=== PATIENT | male | born 1955 | race African-American/Black ===

== ENCOUNTER 2016-10-07 14:10 | Inpatient (IN) ==
[2016-10-07] MEDS ORDERED: SODIUM CHLORIDE 0.9% 1,000 ML IV STA ×2 (14:46→15:30)
[2016-10-07 14:53] LABS: Basophils % 0.2 % (0.0-0.8); Eosinophils % 0.1 % (0.00-10.9); Hematocrit 27.6 VOL% (42.0-52.0); Hemoglobin 8.3 GM/DL (14.0-18.0); Immature Granulocytes % 1.4 %; Immature Granulocytes Absolute 0.28 #; Lymphocytes # 0.8 10*3/uL (1.4-4.0); Lymphocytes % 3.9 % (21.2-54.2); Mean Corpuscular HGB Conc 30.1 GM/DL (32-36); Mean Corpuscular Hemoglobin 24 PG (27-34); Mean Corpuscular Volume 80.5 FL (87-102); Mean Platelet Volume 10.5 FL (9.6-12.0); Monocytes # 0.9 10*3/uL (0.11-0.8); Monocytes % 4.8 % (1.7-12.7); NRBC # 0.03 10*3/uL; Neutrophils # 17.3 10*3/uL (1.4-7.4); Neutrophils % 89.6 % (38.7-73.9); Platelet Count 298 T/CUMM (130-400); Red Blood Count 3.43 MC/CUMM (3.8-5.5); Red Cell Distribution Width 17.4 % (9.3-17.3); White Blood Count 19.3 T/CUMM (4-12)
--- NOTE | 2016-10-07 15:00 | EKG Report ---
Stationary ECG Study [facility] ER Test Date: 10/07/2016 2:09:32 PM Pat Name: KAREN ORDOÑEZ Department: Room: Gender: M Network Operations Specialist: KATHERIN : 1955 Requested by: Rolan Chen Order Number: [id number] Reading MD: KIRSTIN RICE Intervals [place] Rate: 103 P: 53 VT: 126 QRS: -28 QRSD: 83 T: 6 QT: 370 QTc: 430 Interpretive Statements SINUS TACHYCARDIA BORDERLINE LEFT AXIS DEVIATION ABNORMAL RHYTHM ECG INTERPRETATION BASED ON A DEFAULT AGE OF 40 YEARS Electronically Signed On 10-08-16 06:39:31 CDT by KIRSTIN RICE [email or web address]
[2016-10-07] MEDS ORDERED: LORazepam 2 MG/1 ML VIAL IV STA ×2 (15:05→15:25)
[2016-10-07 15:06] LABS: Ammonia 25 UMOL/L (11-32)
[2016-10-07] MEDS ORDERED: LORazepam 2 MG/1 ML VIAL ONE (15:07)
[2016-10-07 15:10] LABS: Lactic Acid 13.7 MMOL/L (0.4-2.0)
[2016-10-07 15:14] LABS: Alanine Aminotransferase 22 U/L (16-61); Albumin 2.9 G/DL (3.4-5.0); Alkaline Phosphatase 125 U/L (45-117); Aspartate Amino Transferase 9 U/L (0-37); Blood Urea Nitrogen 44 MG/DL (7-18); Calcium 7.2 MG/DL (8.5-10.1); Osmolality,Calculated 319.6 MOS/KG (273-304); Potassium 4.7 MMOL/L (3.5-5.1); Total Protein 6.1 G/DL (6.4-8.3); Troponin I Only 0.026 NG/ML (0.00-0.045)
[2016-10-07 15:19] LABS: Glucose 1415 MG/DL (74-106); Sodium 117 MMOL/L (136-145)
[2016-10-07 15:27] LABS: Lymphocytes 2 % (20-55); Nucleated Red Blood Cells 1 (0-5); Segmented Neutrophils 96 % (50-85); Total Cells Counted 100
[2016-10-07 15:28] LABS: Platelet Estimate Normal
[2016-10-07 15:29] LABS: Hypochromasia 1+; Microcytosis 1+; Polychromasia Slight
[2016-10-07 15:40] LABS: Apearance,Urine CLEAR (Clear); Bilirubin,Urine Negative (Negative); Blood, Urine Small mg/dL (Negative); Glucose,Urine (UA) >=500 mg/dL (Negative); Ketones,Urine Negative (Negative); Mucus,Urine Occasional /LPF (Occasional); Nitrite,Urine Negative (Negative); Protein,Urine 30 MG/DL; Squamous Epithelial Cell,Urine Occasional /HPF (0-10); Urine Color Straw (Yellow); Urine Specific Gravity 1.015 (1.001-1.035); Urine Urobilinogen < 2.0 EU/DL (0.2-1.0); WBC,Urine <1 /HPF (0-6)
[2016-10-07 15:52] LABS: Barbiturates Screen,Urine Negative (Negative); Benzodiazepines Screen,Urine Negative (Negative); Cannabinoid Screen,Urine Negative (Negative); Opiate Screen,Urine Negative (Negative); Phencyclidine Screen,Urine Negative (Negative)
[2016-10-07 15:56] LABS: ABG Base Excess -13.6 MMOL/L (-2.5-2.5); ABG HCO3 11.2 MMOL/L (20-26); ABG Oxygen Saturation 97.1 % (95-100); ABG PCO2 23.1 MM HG (35-48); ABG PH 7.304 (7.35-7.45); ABG TCO2 11.9 MMOL/L (23-27); Allen Test Positive; Pt O2 Delivery Device Room Air
--- NOTE | 2016-10-07 16:05 | Emergency Department Note ---
I, Forrest Roth, am scribing for, and in the presence of, Rolan Chen Jr., MD 14:50. IGustavo Marvin Jr., MD, personally performed the services described in this documentation, ascribed by Forrest Roth in my presence, and it is both accurate and complete . Arrival - Arrival Chief Complaint: Altered Mental Status Stated Complaint: C/O ALTERED MENTAL STATUS SINCE 1145 THIS MORNING ED Nursing Triage Note: C/O ALTERED MENTAL STATUS WITH ONSET 1145 THIS MORNING. LAST KNOWN WELL Mode of Arrival: Stretcher Limitations: Altered Mental Status Source: Patient, Family (sON) - History of Present Illness HPI Narrative: Pt is a 61 y/o male who presents to the ED for further evaluation of altered mental status with an onset 1145 this morning. Patient is accompanied by his son who was not with the patient at onset of symptoms. History is limited due to patients altered mental status. Son stated that the patients daughter was with him on onset and that she stated that the patient passed out and she called EMS. After patient came to, he was confused. Son confirmed that pt is normally coherent and talkative. Nurse noted that pt's blood sugar was 600 at triage. Son is unsure of patient's last known well time or if he takes any medication for his seizures. Pt has a PMHx of HTN, seizures, [place], CVA and IDDM. Son said that pt stopped smoking in 2012. No other problems/complaints reported in ED. I agree this is a very confusing history. Son lives with him but he was not with him when this episode occurred. His sister told him that his dad had passed out and had high blood sugar. He still acting confused. Son says that this is not his baseline. Onset (ago): hour(s) Consistency: constant Severity: severe Allergies/Adverse Reactions: Allergies Allergy/AdvReac Type Severity Reaction Status Date / Time No Known Allergies Allergy Unverified 10/07/16 14:16 Home Medications: Home Medications Medication Instructions Recorded Confirmed Type Atorvastatin [Lipitor] 10 mg PO DAILY 10/07/16 10/07/16 History Levothyroxine Tab [Synthroid Tab] 100 mcg PO DAILY 10/07/16 10/07/16 History Potassium Chloride 8 meq PO DAILY 10/07/16 10/07/16 History Sitagliptin Phos/Metformin HCl 1 each PO BID W/MEALS 10/07/16 10/07/16 History [Janumet Xr 50-1,000 mg Tablet] metOLazone [Metolazone] 0.5 mg PO DAILY 10/07/16 10/07/16 History Review of System - Review of System ROS unobtainable: due to mental status 12 point system: reviewed and no additional remarkable complaints except as stated Medical,Surgical,& Family Hx - Medical History Cardio: History of: Hypertension, [place] Neurology: History of: Cerebrovascular Accident Endocrine: History of: Diabetes Mellitus (IDDM) - Social History Smoking Status: Never smoker Frequency of Alcohol Use: None Type of Drug Use: None Exam Physical Examination: General: Well-developed well-nourished, patient appears anxious and slightly agitated. He is already pulled his IV out wants Head: Normocephalic, atraumatic. Eyes: PERRLA, EOMI. Nose: No obvious acute deformities or discharge. Mouth: No obvious acute injury. Neck: Full range of motion without obvious pain. No midline tender to palpation. Lymphatic: no significant lymphadenopathy noted. Lungs: Clear to auscultation bilaterally, normal and equal air movement bilaterally, no obvious rales or wheezing. Heart: Tachycardic Abdomen: Soft nontender, nondistended, normal active bowel sounds. Skin: No obivous acute lesions noted Musculoskeletal: No gross deformities. Neurological: Moves all limbs and follows directions. Seems confused. Does not answer all questions appropriately. Psychiatric: Odd affect : Deferred Vital Signs: Vital Signs Temperature 98.4 F 10/07/16 14:11 Pulse Rate 104 H 10/07/16 14:11 Respiratory Rate 20 10/07/16 14:11 Blood Pressure 120/59 10/07/16 14:11 O2 Sat by Pulse Oximetry 100 10/07/16 14:11 Course Course Narrative: Differential diagnosis: Syncope, hyperglycemia, hyperosmotic nonketotic syndrome , DKA, stroke, secondary to drugs, seizures I reviewed past medical charts that are available in this computer database and find nothing to help with this problem today. This appears to be a new complaint. Son said he thinks the father may have had a seizure in the past but he does not think he is taking any medication. - Reevaluation(s) Reevaluation #1: Nurse told me patient is very restless. had a twithcing activitie in his right arm but is able to talk to her through this. He is also trying to get off the bed. We will give him some Ativan and see if this helps. He still altered. Time: 15:06 Reevaluation #2: Patient still altered. Labs are coming back which show multiple severe problems that will necessitate ICU admission. Patient is very critical at this time. I discussed this with multiple family members to. Patient still remains too agitated to get a CT of his head. He will not sit still. I feel he is too unstable to further sedate him. He still moves all limbs and will talk. Time: 15:47 Results - Labs CBC & BMP: 10/07/16 14:37 10/07/16 14:37 Lab Results: I have reviewed the patients labs Labs: Laboratory Tests 10/07/16 14:37 WBC 19.3 H RBC 3.43 L Hgb 8.3 L Hct 27.6 L MCV 80.5 L MCH 24 L MCHC 30.1 L RDW 17.4 H Plt Count 298 MPV 10.5 Neut % (Auto) 89.6 H Lymph % (Auto) 3.9 L Garrett % (Auto) 4.8 Eos % (Auto) 0.1 Baso % (Auto) 0.2 Neut # (Auto) 17.3 H Lymph # (Auto) 0.8 L Garrett # (Auto) 0.9 H Eos # (Auto) 0.0 Baso # (Auto) 0.0 Total Counted Pending Immature Gran % 1.4 Nucleated RBC % 0.2 Immature Gran # 0.28 Nucleated RBCs # 0.03 Laboratory Tests 10/07/16 14:37 Ammonia 25 Laboratory Tests 10/07/16 14:37 WBC 19.3 H RBC 3.43 L Hgb 8.3 L Hct 27.6 L MCV 80.5 L MCH 24 L MCHC 30.1 L RDW 17.4 H Plt Count 298 MPV 10.5 Neut % (Auto) 89.6 H Lymph % (Auto) 3.9 L Garrett % (Auto) 4.8 Eos % (Auto) 0.1 Baso % (Auto) 0.2 Neut # (Auto) 17.3 H Lymph # (Auto) 0.8 L Garrett # (Auto) 0.9 H Eos # (Auto) 0.0 Baso # (Auto) 0.0 Total Counted 100 Immature Gran % 1.4 Nucleated RBC % 0.2 Immature Gran # 0.28 Segmented Neutrophils 96 H Lymphocytes 2 L Monocytes 2 Nucleated RBCs 1 Nucleated RBCs # 0.03 Platelet Estimate Normal Polychromasia Slight Hypochromasia 1+ Microcytosis 1+ Laboratory Tests 10/07/16 14:37 Sodium 117 L* Potassium 4.7 Chloride 77 L Carbon Dioxide 11 L Anion Gap 33.7 H BUN 44 H Creatinine 6.00 H GFR Calculation 15 BUN/Creatinine Ratio 7.00 Glucose 1415 H* Calculated Osmolality 319.6 H Lactic Acid 13.7 H Calcium 7.2 L Total Bilirubin 0.60 AST 9 ALT 22 Alkaline Phosphatase 125 H Ammonia 25 Troponin I 0.026 Total Protein 6.1 L Albumin 2.9 L Globulin 3.2 Albumin/Globulin Ratio 0.9 L Serum Alcohol < 15 L Laboratory Tests 10/07/16 14:37 Urine Color Straw Urine Appearance Clear Urine pH 5.0 Ur Specific [place] 1.015 Urine Protein 30 Urine Glucose (UA) >=500 Urine Ketones Negative Urine Blood Small Urine Nitrate Negative Urine Bilirubin Negative Urine Urobilinogen < 2.0 H Urine Leukocytes Negative Urine WBC <1 Ur Squamous Epith Cells Occasional Urine Mucus Occasional Ur Culture Indicated? Not indicated - EKG EKG results: interpreted by ERMD (Heart rate 103, normal sinus rhythm, narrow complex QRS complexes without obvious acute ST changes. Interpretation nonspecific EKG, sinus tachycardia) Critical Care Time Critical Care Time: Yes (Critical condition, hyperosmolar, DKA) Total Critical Care Time: 40 Disposition Clinical Impression: Altered mental status, Diabetic ketoacidosis, Diabetic hyperosmolar syndrome, Acute renal failure, Lactic acidosis Case discussed with: patient, patient's family Disposition: Still a Patient Time of Disposition: 15:49
[2016-10-07] MEDS ORDERED: SODIUM PHOSPHATE INJ 28.3 MMOL in SODIUM CHLORIDE 0.9% 250 ML IV PRN (16:27)
[2016-10-07] MEDS ORDERED: MAGNESIUM SULF RIDER 2 GM in PREMIX 1 EACH IV PRN (16:27)
[2016-10-07] MEDS ORDERED: MAGNESIUM SULF RIDER 4 GM in PREMIX 1 EACH IV PRN (16:27)
[2016-10-07] MEDS ORDERED: ZALEPLON 5 MG CAPSULE PO PRN (16:27)
[2016-10-07] MEDS ORDERED: ACETAMINOPHEN 325 MG TABLET PO PRN (16:27)
[2016-10-07] MEDS ORDERED: SODIUM CHLORIDE 0.9% 1,000 ML IV ONE (16:27)
[2016-10-07] MEDS ORDERED: INSULIN REGULAR 100 UNIT/ML IV ONE (16:27)
[2016-10-07] MEDS ORDERED: SODIUM BICARB INJ 100 MEQ in STERILE WATER INJ 400 ML IV PRN (16:27)
[2016-10-07] MEDS ORDERED: DEXTROSE 50% 25 GM/50 ML VIAL IV PRN ×2 (16:27)
[2016-10-07] MEDS ORDERED: ONDANSETRON 4 MG/2 ML VIAL IV PRN (16:27)
[2016-10-07] MEDS ORDERED: MORPHINE 2 MG/1 ML SYRINGE IV PRN (16:27)
--- NOTE | 2016-10-07 16:49 | XRay Report ---
History: History of hypertension and diabetes Date: 10/07/2016 Study: Chest x-ray AP portable Comparison exam: September 30, 2014 There is cardiomegaly. There is no mediastinal mass. The pulmonary vasculature is not engorged. Lungs are generally clear when accounting for shallow inspiration. No gross pleural effusion. The osseous structures are unchanged. Impression: Cardiomegaly without overt CHF. Shallow breath shallow breath PROCEDURE INTERPRETED AT [facility] DEPARTMENT OF RADIOLOGY Final Report Signed by: Dr. Jewels Pickett
--- NOTE | 2016-10-07 16:50 | Hospitalist History & Physical ---
Assessment and Plan - Time spent with patient Time spent with patient: Greater than 30 minutes (1) Leukocytosis Status: Acute Assessment and plan: WBC 19.3. Source most likely a pulmonary infectious process. Cover empirically with Zyvox 600 mg IV Q12H. Current Visit: Yes (2) Acute renal failure Status: Acute Assessment and plan: Patient is known diabetic. Unsure of patient's baseline. Today, BUN 44 creatinine 6.0. Gentle hydration via IV fluids Current Visit: Yes (3) Altered mental status Status: Acute Assessment and plan: Unsure the source of his altered mental status. We will treat for DKA and suspected pseudo-hyponatremia and monitor closely. Current Visit: Yes (4) Diabetic ketoacidosis Status: Acute Assessment and plan: Glucose 1415 on admission. ABGs revealed metabolic acidosis with a pH of 7.3 PCO2 23 HCO3 11.2. Admit to ICU. Initiate DKA protocol Current Visit: Yes History of Present Illness Chief complaint: AMS/hyperosmolar History of present illness: Mr. Fraire is a 61 year old -[place] male with a history significant for hypertension, seizures, [place], CVA, renal failure, diabetes mellitus who presents to the ED for evaluation of altered mental status since this morning. On exam, the patient is agitated and not very cooperative. Patient's son and daughter are at bedside and were able to answer a few questions regarding the nature of the patient's condition. Daughter states that she was with the patient at the time of onset and that she called 911 after witnessing the patient passed out. Son states that this is not the patient's usual state. He is apparently coherent and communicative at his normal. On arrival to the ER, patient was still confused and agitated. Lab reveals white count of 19.3 H&H 8.3 and 27.6 sodium 117 potassium 4.7 chloride 77 bicarb 11 BUN 44 creatinine 6.0 glucose 1415. ABGs reveal pH of 7.3 PCO2 23 HCO3 11.2. Patient did receive 2 doses of lorazepam and seemed to calm down slightly. Chest x-ray in the ER revealed cardiomegaly without overt CHF. Patient will be admitted to hospital medicine service for evaluation and further management of diabetic ketoacidosis. I suspect his hyponatremia is in fact pseudohyponatremia secondary to hyperglycemia. This should correct with management of DKA. We will admit patient to the ICU overnight. Home Medications Medication Instructions Recorded Confirmed Type Atorvastatin [Lipitor] 10 mg PO DAILY 10/07/16 10/07/16 History Levothyroxine Tab [Synthroid Tab] 100 mcg PO DAILY 10/07/16 10/07/16 History Potassium Chloride 8 meq PO DAILY 10/07/16 10/07/16 History Sitagliptin Phos/Metformin HCl 1 each PO BID W/MEALS 10/07/16 10/07/16 History [Janumet Xr 50-1,000 mg Tablet] metOLazone [Metolazone] 0.5 mg PO DAILY 10/07/16 10/07/16 History Allergies Allergy/AdvReac Type Severity Reaction Status Date / Time No Known Allergies Allergy Unverified 10/07/16 14:16 Medical,Surgical,& Family Hx - Medical History Cardio: History of: Hypertension, [place] Neurology: History of: Cerebrovascular Accident Endocrine: History of: Diabetes Mellitus (IDDM) - Social History Smoking Status: Never smoker Frequency of Alcohol Use: None Type of Drug Use: None Marital Status: Lives With:: Children Functional capacity: independent ambulation ROS unobtainable: due to mental status - EENT Nose, mouth and throat: Absent: neck pain - Cardiovascular Cardiovascular: Absent: chest pain at rest - Gastrointestinal Gastrointestinal: Absent: abdominal pain - Psychiatric Psychiatric: Present: anxiety, confusion Exam - Constitutional Vitals: Period Temp Pulse Resp BP Sys/Desai Pulse Ox Last 24 Hr 98.4 F 104 20 120/59 100 Exam: General appearance: normal weight, moderate distress - Head Head exam: Present: normocephalic, atraumatic - Eye Eye exam: Present: EOMI. Absent: conjunctival injection, nystagmus Pupils: Present: LULÚ, normal accommodation - ENT ENT exam: Present: normal exam, normal external ear exam - Neck Neck exam: Present: normal inspection. Absent: lymphadenopathy, tenderness, thyromegaly - Respiratory Respiratory exam: Present: coarse breath sounds throughout. Absent: wheezes - Cardiovascular Cardiovascular exam: Present: regular rate and rhythm. Absent: carotid bruit, gallop, rubs - GI/Abdominal GI/Abdominal exam: Present: diastasis recti, normal bowel sounds. Absent: ascites, distended, mass - Extremities Exam Extremities exam: Present: normal inspection, normal capillary refill. Absent: edema - Back Exam Back exam: Absent: CVA tenderness (L), CVA tenderness (R) - Neurological Exam Neurological exam: Present: confused, oriented to person and year - Psychiatric Psychiatric exam: Present: restless, agitated - Skin Skin exam: Present: normal color, warm, dry Results - Labs CBC & BMP: 10/07/16 14:37 10/07/16 14:37 Lab Results: I have reviewed the past 24 hour labs - Diagnostic Findings Procedure: Chest x-ray: image reviewed by me, report reviewed by me
[2016-10-07 17:04] LABS: Magnesium 1.7 MG/DL (1.8-2.4); Phosphorous 6.7 MG/DL (2.5-4.9)
[2016-10-07] MEDS ORDERED: INSULIN REGULAR DRIP 100 ML IV ONE (17:22)
[2016-10-07] MEDS: INSULIN REGULAR DRIP 100 ML IV SCH (17:36)
[2016-10-07] MEDS: SODIUM CHLORIDE 0.9% 1,000 ML IV SCH ×4 (17:37→23:39)
[2016-10-07 18:06] LABS: Basophils % 0.1 % (0.0-0.8); Hematocrit 25.7 VOL% (42.0-52.0); Hemoglobin 8.1 GM/DL (14.0-18.0); Immature Granulocytes Absolute 0.18 #; Lymphocytes # 0.8 10*3/uL (1.4-4.0); Lymphocytes % 4.3 % (21.2-54.2); Mean Corpuscular HGB Conc 31.5 GM/DL (32-36); Mean Corpuscular Hemoglobin 24 PG (27-34); Mean Corpuscular Volume 77.4 FL (87-102); Mean Platelet Volume 10.4 FL (9.6-12.0); Monocytes # 0.4 10*3/uL (0.11-0.8); NRBC # 0.02 10*3/uL; Neutrophils # 17.5 10*3/uL (1.4-7.4); Neutrophils % 92.6 % (38.7-73.9); Platelet Count 249 T/CUMM (130-400); Red Blood Count 3.32 MC/CUMM (3.8-5.5); Red Cell Distribution Width 16.9 % (9.3-17.3); White Blood Count 18.8 T/CUMM (4-12)
[2016-10-07] MEDS: LINEZOLID INJ 600 MG in PREMIX 1 EACH IV SCH (18:20)
[2016-10-07 18:33] LABS: Lymphocytes 3 % (20-55); Segmented Neutrophils 96 % (50-85); Total Cells Counted 100
[2016-10-07 18:35] LABS: Calcium 7.2 MG/DL (8.5-10.1); Osmolality,Calculated 322.5 MOS/KG (273-304); Potassium 4.1 MMOL/L (3.5-5.1)
[2016-10-07 18:36] LABS: Burr Cells Few; Hypochromasia Slight; Microcytosis Slight; Platelet Estimate Adequate
[2016-10-07] MEDS: LORazepam 2 MG/1 ML VIAL IV PRN (20:42)
[2016-10-07 21:10] LABS: Apearance,Urine CLEAR (Clear); Bacteria,Urine Occasional /HPF (Few); Bilirubin,Urine Negative (Negative); Blood, Urine Moderate mg/dL (Negative); Glucose,Urine (UA) >=500 mg/dL (Negative); Ketones,Urine Negative (Negative); Nitrite,Urine Negative (Negative); Protein,Urine 30 MG/DL; RBC,Urine <1 /HPF (0-4); Urine Color Straw (Yellow); Urine Specific Gravity 1.014 (1.001-1.035); Urine Urobilinogen < 2.0 EU/DL (0.2-1.0); WBC,Urine <1 /HPF (0-6)
[2016-10-07 21:15] LABS: Calcium 7.5 MG/DL (8.5-10.1); Osmolality,Calculated 307.4 MOS/KG (273-304); Potassium 3.6 MMOL/L (3.5-5.1)
[2016-10-07] MEDS: PANTOPRAZOLE 40 MG VIAL IV SCH (21:57)
[2016-10-08] MEDS: SODIUM CHLORIDE 0.9% 1,000 ML IV SCH (00:09)
[2016-10-08] MEDS: INSULIN REGULAR DRIP 100 ML IV SCH ×3 (00:40→18:04)
[2016-10-08 00:56] LABS: Calcium 7.2 MG/DL (8.5-10.1); Osmolality,Calculated 295.7 MOS/KG (273-304); Potassium 3.4 MMOL/L (3.5-5.1)
[2016-10-08 02:38] LABS: Basophils % 0.2 % (0.0-0.8); Eosinophils % 0.2 % (0.00-10.9); Hematocrit 24.4 VOL% (42.0-52.0); Hemoglobin 8.1 GM/DL (14.0-18.0); Immature Granulocytes % 0.6 %; Lymphocytes % 11.1 % (21.2-54.2); Mean Corpuscular HGB Conc 33.2 GM/DL (32-36); Mean Corpuscular Hemoglobin 24 PG (27-34); Mean Corpuscular Volume 72.4 FL (87-102); Mean Platelet Volume 9.8 FL (9.6-12.0); Monocytes % 5.6 % (1.7-12.7); Neutrophils # 14.9 10*3/uL (1.4-7.4); Neutrophils % 82.3 % (38.7-73.9); Platelet Count 282 T/CUMM (130-400); Red Blood Count 3.37 MC/CUMM (3.8-5.5); Red Cell Distribution Width 16.5 % (9.3-17.3); White Blood Count 18.1 T/CUMM (4-12)
[2016-10-08] MEDS: LORazepam 2 MG/1 ML VIAL IV PRN ×2 (02:49→20:24)
[2016-10-08 03:04] LABS: Calcium 7.5 MG/DL (8.5-10.1); Osmolality,Calculated 293.3 MOS/KG (273-304); Potassium 3.1 MMOL/L (3.5-5.1)
[2016-10-08 03:08] LABS: Albumin 2.8 G/DL (3.4-5.0); Bilirubin,Total 0.7 MG/DL (0.2-1.0); Calcium 7.4 MG/DL (8.5-10.1); Magnesium 1.4 MG/DL (1.8-2.4); Phosphorous 2.9 MG/DL (2.5-4.9); Potassium 3.3 MMOL/L (3.5-5.1); Total Protein 5.6 G/DL (6.4-8.3)
[2016-10-08 04:42] LABS: Calcium 7.3 MG/DL (8.5-10.1); Magnesium 1.4 MG/DL (1.8-2.4); Osmolality,Calculated 295.3 MOS/KG (273-304)
[2016-10-08 04:42] LABS: Acanthocytes Few; Anisocytosis 1+; Platelet Estimate Normal
[2016-10-08] MEDS ORDERED: DEXT 5% NACL 0.45% KCL 40 MEQ 40 MEQ/1,000 ML BAG IV SCH (06:00)
[2016-10-08] MEDS: LINEZOLID INJ 600 MG in PREMIX 1 EACH IV SCH ×2 (06:04→18:04)
--- NOTE | 2016-10-08 06:23 | XRay Report ---
Portable chest Date: 10/08/2016 Clinical history: Fluid overload Comparison: 10/07/2016 Technique: Portable AP sitting chest Findings: The heart is smaller in size with calcification in the aortic knob. Progressive parenchymal findings in the right middle and lower lung zone with decrease findings at the left lung base. Nasogastric tube noted with limited evaluation. Degenerative changes are noted. Impression: Progressive edema/infiltration/atelectasis in the right mid-lower lung zone with decreased findings at the left lung base. The heart is smaller in size. PROCEDURE INTERPRETED AT [facility] DEPARTMENT OF RADIOLOGY Final Report Signed by: Dr. Jessica Vides
[2016-10-08] MEDS: ALBUTEROL/IPRATROPIUM 3 ML NEB RESP TX SCH ×5 (07:19→23:54)
--- NOTE | 2016-10-08 07:59 | Hospitalist Progress Note ---
Assessment and Plan - Time spent with patient Time spent with patient: Greater than 30 minutes (1) Diabetic ketoacidosis Status: Acute Assessment and plan: Patient still has a gap of 22. Will continue insulin infusion and serial monitoring. We will continue hydration. Current Visit: Yes (2) Sepsis Status: Acute Assessment and plan: Secondary to pneumonia. We will start Zosyn which apparently was not started yesterday. Will continue Zyvox. Current Visit: Yes (3) Pneumonia Status: Acute Assessment and plan: Possibly aspiration. Zosyn and Zyvox. Will ask speech to see. Current Visit: Yes (4) Acute renal failure Status: Acute Assessment and plan: Baseline 1.8. Nephrology has been consulted. Current Visit: Yes (5) Diabetes mellitus Status: Acute Assessment and plan: HgA1c is 13. Currently in DKA. Current Visit: Yes (6) Anemia Status: Acute Assessment and plan: Likely secondary to chronic disease. Stable. Current Visit: Yes (7) Hypomagnesemia Status: Acute Assessment and plan: Will replenish. Current Visit: Yes (8) Hypokalemia Status: Acute Assessment and plan: Continue potassium supplementation. Current Visit: Yes Hospitalist: Subjective Interval history: Admitted overnight for DKA to the intensive care unit. Currently on broad- spectrum antibiotics for pneumonia. Patient has some secretions in his upper airway. Exam - Constitutional Vitals: Period Temp Pulse Resp BP Sys/Desai Pulse Ox Last 24 Hr 97.7 F-98.4 F 98-115 18-38 91-191/55-86 93-100 General appearance: no acute distress - Head Head exam: Present: normocephalic, atraumatic - Eye Eye exam: Present: EOMI Pupils: Present: LULÚ - ENT ENT exam: Present: normal exam - Neck Neck exam: Present: normal inspection - Respiratory Respiratory exam: Present: other (coarse breath sounds bilaterally). Absent: rhonchi, wheezes - Cardiovascular Cardiovascular exam: Present: regular rate and rhythm. Absent: gallop, rubs, systolic murmur - GI/Abdominal GI/Abdominal exam: Present: normal bowel sounds, soft. Absent: distended, firm , guarding, tenderness, rebound - Extremities Exam Extremities exam: Present: edema. Absent: calf tenderness Results - Labs CBC & BMP: 10/08/16 04:18 10/08/16 04:19 Lab Results: I have reviewed the past 24 hour labs
[2016-10-08] MEDS: LEVOTHYROXINE 100 MCG TABLET PO SCH (08:40)
[2016-10-08] MEDS: PANTOPRAZOLE 40 MG VIAL IV SCH ×2 (08:40→20:24)
[2016-10-08] MEDS: POTASSIUM CHLORIDE 8 MEQ CAPSULE PO SCH (08:40)
[2016-10-08] MEDS: ATORVASTATIN 10 MG TABLET PO SCH (08:40)
[2016-10-08] MEDS: metOLazone 2.5 MG TABLET PO SCH (08:40)
[2016-10-08] MEDS: PIPERACILLIN/TAZOBACTAM 3,375 MG in SODIUM CHLORIDE 0.9% 100 ML IV SCH ×2 (08:41→20:24)
[2016-10-08 08:46] LABS: Calcium 7.1 MG/DL (8.5-10.1); Potassium 3.5 MMOL/L (3.5-5.1)
[2016-10-08] MEDS: POTASSIUM CHLORIDE RIDER 10 MEQ in PREMIX 1 EACH IV SCH ×2 (08:48→09:55)
[2016-10-08] MEDS ORDERED: PANTOPRAZOLE 40 MG TABLET PO SCH (09:00)
[2016-10-08] MEDS: DEXT 5% NACL 0.45% KCL 20 MEQ 20 MEQ/1,000 ML BAG IV SCH ×2 (09:35→15:50)
[2016-10-08] MEDS: SODIUM CHLORIDE 0.45% 1,000 ML IV SCH ×2 (09:56→18:04)
--- NOTE | 2016-10-08 10:03 | Ultrasound Report ---
Exam: US renal Bilateral Date: 10/08/2016 9:19 AM Comparison: 04/26/2007 Indication: Acute renal failure Technique:[Multiple transabdominal real-time scans were obtained of the kidneys. Color flow scans obtained. Ultrasound images were captured and stored.] Findings: Right kidney measures 98 x 48 56 mm compared to 111 mm on the previous exam. Left kidney measures 82 x 53 x 47 mm. Cortical loss in the kidneys with no mass or hydronephrosis. Impression: Cortical loss in the kidneys with inhomogeneous echogenicity which can be seen with medical renal disease. No hydronephrosis or definite mass. PROCEDURE INTERPRETED AT [facility] DEPARTMENT OF RADIOLOGY Final Report Signed by: Dr. Jessica Vides
[2016-10-08] MEDS: DESITIN 4OZ/NYSTATIN 15 GRAM MIXTURE PASTE TOP SCH ×2 (11:01→20:24)
--- NOTE | 2016-10-08 13:20 | Nephrology Consult Note ---
History of Present Illness Chief complaint: ARF History of present illness: Mr. Fraire is a 61 year old male admitted with altered mental status. He was noted to have DKA and acute renal failure on admission. He has a history of seizure disorder but no witnessed seizure prior to admission. Baseline creatinine 1.8-2.[address] Varghese's office. He denies dysuria or obstructive symptoms. However he is still mildly confused. Home Medications Medication Instructions Recorded Confirmed Type Atorvastatin [Lipitor] 10 mg PO DAILY 10/07/16 10/07/16 History Levothyroxine Tab [Synthroid Tab] 100 mcg PO DAILY 10/07/16 10/07/16 History Potassium Chloride 8 meq PO DAILY 10/07/16 10/07/16 History Sitagliptin Phos/Metformin HCl 1 each PO BID W/MEALS 10/07/16 10/07/16 History [Janumet Xr 50-1,000 mg Tablet] metOLazone [Metolazone] 0.5 mg PO DAILY 10/07/16 10/07/16 History Allergies Allergy/AdvReac Type Severity Reaction Status Date / Time No Known Allergies Allergy Unverified 10/07/16 14:16 Medical,Surgical,& Family Hx - Medical History Cardio: History of: Hypertension, [place] Psychological: History of: Depression Neurology: History of: Cerebrovascular Accident, Dementia Endocrine: History of: Diabetes Mellitus (IDDM), Thyroid Disorder - Family History Family History: Comment Only: Family Diabetes (mother and father) - Social History Smoking Status: Never smoker Frequency of Alcohol Use: None Type of Drug Use: None Review of Systems 12 point system: reviewed and no additional remarkable complaints except as stated Exam - Vital Signs Vital signs: Period Temp Pulse Resp BP Sys/Desai Pulse Ox Last 24 Hr 97.7 F-98.5 F 94-115 17-38 91-191/55-86 93-100 Exam: Gen.: Alert but mildly confused ENT: Pupils equal round reactive to light. EOMs intact. Mucous membranes moist. Neck: Supple. No JVD or bruit. Cardiovascular: Regular rate and rhythm. No murmur rub or gallop Lungs: Clear Abdomen: Soft. Nontender. Positive bowel sounds. No organomegaly Extremities: No edema Results - Labs CBC & BMP: 10/08/16 12:33 10/08/16 08:03 Assessment and Plan (1) Acute renal failure Status: Acute Assessment and plan: 61-year-old man admitted with: * DKA. He is on insulin infusion. Likely precipitating factor is pneumonia * Pneumonia. Continue current antibiotics * Chronic renal failure stage III. Baseline creatinine 1.8 2.0 * Acute renal failure. This is secondary to DKA * Lactic acidosis. Metformin has been discontinued Current Visit: Yes (2) Altered mental status Status: Acute Current Visit: Yes (3) Diabetes mellitus Status: Acute Current Visit: Yes (4) Diabetic ketoacidosis Status: Acute Current Visit: Yes (5) Lactic acidosis Status: Acute Current Visit: Yes (6) Pneumonia Status: Acute Current Visit: Yes
[2016-10-08 13:33] LABS: Calcium 7.2 MG/DL (8.5-10.1); Osmolality,Calculated 289.3 MOS/KG (273-304); Potassium 3.5 MMOL/L (3.5-5.1)
[2016-10-08] MEDS: DEXTROSE 5% NACL 0.45% 1,000 ML IV SCH ×2 (14:09→22:03)
[2016-10-08 18:00] LABS: Osmolality,Calculated 287.3 MOS/KG (273-304); Potassium 3.4 MMOL/L (3.5-5.1)
[2016-10-08] MEDS: POTASSIUM CHLORIDE RIDER 10 MEQ in PREMIX 1 EACH IV PRN ×3 (18:59→20:52)
[2016-10-08 20:41] LABS: Calcium 7.1 MG/DL (8.5-10.1); Osmolality,Calculated 288.3 MOS/KG (273-304); Potassium 3.6 MMOL/L (3.5-5.1)
[2016-10-09 01:47] LABS: Calcium 7.3 MG/DL (8.5-10.1); Osmolality,Calculated 285.3 MOS/KG (273-304); Potassium 3.4 MMOL/L (3.5-5.1)
[2016-10-09] MEDS: ALBUTEROL/IPRATROPIUM 3 ML NEB RESP TX SCH ×6 (02:52→23:55)
[2016-10-09] MEDS: SODIUM CHLORIDE 0.45% 1,000 ML IV SCH ×3 (04:08→17:46)
[2016-10-09] MEDS: LORazepam 2 MG/1 ML VIAL IV PRN (04:17)
[2016-10-09 04:55] LABS: Calcium 7.2 MG/DL (8.5-10.1); Osmolality,Calculated 286.5 MOS/KG (273-304); Potassium 3.4 MMOL/L (3.5-5.1)
[2016-10-09] MEDS: POTASSIUM CHLORIDE RIDER 10 MEQ in PREMIX 1 EACH IV PRN ×5 (05:06→20:52)
[2016-10-09] MEDS: DEXTROSE 5% NACL 0.45% 1,000 ML IV SCH ×3 (05:57→22:52)
[2016-10-09] MEDS: INSULIN REGULAR DRIP 100 ML IV SCH ×2 (05:58→18:16)
[2016-10-09] MEDS: LINEZOLID INJ 600 MG in PREMIX 1 EACH IV SCH ×2 (06:18→18:18)
[2016-10-09] MEDS: LEVOTHYROXINE 100 MCG TABLET PO SCH (06:34)
[2016-10-09] MEDS: PANTOPRAZOLE 40 MG VIAL IV SCH ×2 (08:29→20:51)
[2016-10-09] MEDS: metOLazone 2.5 MG TABLET PO SCH (08:29)
[2016-10-09] MEDS: POTASSIUM CHLORIDE 8 MEQ CAPSULE PO SCH (08:30)
[2016-10-09] MEDS ORDERED: MAGNESIUM SULF RIDER 4 GM in PREMIX 1 EACH IV ONE (08:30)
[2016-10-09] MEDS: ATORVASTATIN 10 MG TABLET PO SCH (08:30)
[2016-10-09] MEDS: PIPERACILLIN/TAZOBACTAM 3,375 MG in SODIUM CHLORIDE 0.9% 100 ML IV SCH ×2 (10:15→19:49)
--- NOTE | 2016-10-09 10:35 | Hospitalist Progress Note ---
Assessment and Plan - Time spent with patient Time spent with patient: Greater than 30 minutes (1) Diabetic ketoacidosis Status: Acute Assessment and plan: Patient still has a gap of 19. Will continue insulin infusion and serial monitoring. We will continue hydration. Current Visit: Yes (2) Sepsis Status: Acute Assessment and plan: Continue antibiotics. Current Visit: Yes (3) Pneumonia Status: Acute Assessment and plan: Patient apparently exhibited signs of aspiration. Currently n.p.o. Current Visit: Yes (4) Acute renal failure Status: Acute Assessment and plan: Appreciate nephrology assistance. Current Visit: Yes (5) Diabetes mellitus Status: Acute Assessment and plan: HgA1c is 13. Currently in DKA. Current Visit: Yes (6) Anemia Status: Acute Assessment and plan: Likely secondary to chronic disease. Stable. Current Visit: Yes Hospitalist: Subjective Interval history: Patient failed bedside swallow study. Currently he is in the ICU for treatment of DKA and probable aspiration pneumonia. No overnight events or complaints from patient. Exam - Constitutional Vitals: Period Temp Pulse Resp BP Sys/Desai Pulse Ox Last 24 Hr 97.6 F-98.2 F 87-106 17-35 138-177/62-84 94-100 General appearance: no acute distress - Head Head exam: Present: normocephalic, atraumatic - Eye Eye exam: Present: EOMI Pupils: Present: LULÚ - ENT ENT exam: Present: normal exam - Neck Neck exam: Present: normal inspection - Respiratory Respiratory exam: Present: other (A lot of secretions within the patient's trachea and coarse breath sounds.). Absent: rhonchi, wheezes - Cardiovascular Cardiovascular exam: Present: regular rate and rhythm. Absent: gallop, rubs, systolic murmur - GI/Abdominal GI/Abdominal exam: Present: normal bowel sounds, soft. Absent: distended, firm , guarding, tenderness, rebound - Extremities Exam Extremities exam: Present: normal inspection. Absent: calf tenderness, edema Results - Labs CBC & BMP: 10/08/16 16:59 10/09/16 04:32 Lab Results: I have reviewed the past 24 hour labs
[2016-10-09] MEDS: DESITIN 4OZ/NYSTATIN 15 GRAM MIXTURE PASTE TOP SCH ×2 (10:58→20:51)
[2016-10-09 14:32] LABS: Calcium 7.2 MG/DL (8.5-10.1); Osmolality,Calculated 286.3 MOS/KG (273-304); Potassium 3.6 MMOL/L (3.5-5.1)
[2016-10-09 19:02] LABS: Osmolality,Calculated 288.1 MOS/KG (273-304); Potassium 3.8 MMOL/L (3.5-5.1)
--- NOTE | 2016-10-09 20:30 | Nephrology Progress Note ---
Nephrology - PN: Subj Interval history: He is awake and responsive. He denies shortness of breath. Exam (PN)-Nephrology - Vital Signs Vital signs: Period Temp Pulse Resp BP Sys/Desai Pulse Ox Last 24 Hr 96.7 F-98.2 F 87-106 18-38 98-177/45-81 97-100 Exam: ENT: Normal Cardiovascular: Regular rate and rhythm. No murmur rub or gallop Lungs: Clear Extremities: No edema - Lab 10/08/16 16:59 10/09/16 18:30 Most recent lab results ABG pH 7.304 (7.35-7.45) L 10/07/16 15:50 ABG pCO2 23.1 MM HG (35-48) L 10/07/16 15:50 ABG pO2 109.0 MM HG (80-95) H 10/07/16 15:50 ABG HCO3 11.2 MMOL/L (20-26) L 10/07/16 15:50 ABG O2 Saturation 97.1 % (95-100) 10/07/16 15:50 Calcium 7.0 MG/DL (8.5-10.1) L 10/09/16 18:30 Phosphorus 2.9 MG/DL (2.5-4.9) 10/08/16 02:10 Magnesium 2.0 MG/DL (1.8-2.4) 10/09/16 04:32 Assessment and Plan (1) Acute renal failure Status: Acute Assessment and plan: 61-year-old man admitted with: * DKA. * Pneumonia. Continue current antibiotics * Chronic renal failure stage III. Baseline creatinine 1.8 -2.0 * Acute renal failure. This is secondary to DKA. Renal function is improving * Lactic acidosis. Metformin has been discontinued Current Visit: Yes (2) Altered mental status Status: Acute Current Visit: Yes (3) Diabetes mellitus Status: Acute Current Visit: Yes (4) Diabetic ketoacidosis Status: Acute Current Visit: Yes (5) Lactic acidosis Status: Acute Current Visit: Yes (6) Pneumonia Status: Acute Current Visit: Yes
[2016-10-09 22:48] LABS: Calcium 6.7 MG/DL (8.5-10.1); Osmolality,Calculated 284.5 MOS/KG (273-304); Potassium 3.9 MMOL/L (3.5-5.1)
[2016-10-10] MEDS: LORazepam 2 MG/1 ML VIAL IV PRN (00:02)
[2016-10-10] MEDS: INSULIN REGULAR DRIP 100 ML IV SCH ×2 (01:11→17:50)
[2016-10-10] MEDS: ALBUTEROL/IPRATROPIUM 3 ML NEB RESP TX SCH ×6 (03:57→23:47)
[2016-10-10 04:44] LABS: Basophils % 0.2 % (0.0-0.8); Eosinophils # 0.5 10*3/uL (0.0-0.87); Eosinophils % 2.7 % (0.00-10.9); Hematocrit 21.6 VOL% (42.0-52.0); Immature Granulocytes % 0.7 %; Immature Granulocytes Absolute 0.14 #; Lymphocytes # 0.9 10*3/uL (1.4-4.0); Lymphocytes % 4.6 % (21.2-54.2); Mean Corpuscular HGB Conc 32.4 GM/DL (32-36); Mean Corpuscular Hemoglobin 24 PG (27-34); Mean Corpuscular Volume 74.5 FL (87-102); Mean Platelet Volume 9.9 FL (9.6-12.0); Monocytes # 0.7 10*3/uL (0.11-0.8); Monocytes % 3.5 % (1.7-12.7); NRBC # 0.02 10*3/uL; Neutrophils # 17.1 10*3/uL (1.4-7.4); Neutrophils % 88.3 % (38.7-73.9); Platelet Count 196 T/CUMM (130-400); Red Cell Distribution Width 18.2 % (9.3-17.3); White Blood Count 19.3 T/CUMM (4-12)
[2016-10-10 05:08] LABS: Band Neutrophils 9 % (0-10); Lymphocytes 1 % (20-55); Segmented Neutrophils 89 % (50-85); Total Cells Counted 100
[2016-10-10 05:09] LABS: Acanthocytes Few; Hypochromasia 1+; Microcytosis 1+; Ovalocytes Slight; Platelet Estimate Adequate
[2016-10-10 05:30] LABS: Osmolality,Calculated 284.5 MOS/KG (273-304); Potassium 3.7 MMOL/L (3.5-5.1)
[2016-10-10] MEDS: LINEZOLID INJ 600 MG in PREMIX 1 EACH IV SCH ×2 (05:46→17:51)
[2016-10-10] MEDS: POTASSIUM CHLORIDE RIDER 10 MEQ in PREMIX 1 EACH IV PRN ×2 (05:47→06:46)
[2016-10-10] MEDS: DEXTROSE 5% NACL 0.45% 1,000 ML IV SCH ×3 (05:51→21:47)
[2016-10-10] MEDS: LEVOTHYROXINE 100 MCG TABLET PO SCH (06:27)
[2016-10-10] MEDS ORDERED: SODIUM CHLORIDE 0.9% 250 ML IV PRN (07:46)
[2016-10-10] MEDS: SODIUM CHLORIDE 0.45% 1,000 ML IV SCH (08:39)
[2016-10-10] MEDS: PIPERACILLIN/TAZOBACTAM 3,375 MG in SODIUM CHLORIDE 0.9% 100 ML IV SCH ×2 (09:03→20:19)
[2016-10-10] MEDS: PANTOPRAZOLE 40 MG VIAL IV SCH ×2 (09:04→21:28)
[2016-10-10] MEDS: DESITIN 4OZ/NYSTATIN 15 GRAM MIXTURE PASTE TOP SCH ×2 (09:04→21:28)
[2016-10-10] MEDS: ATORVASTATIN 10 MG TABLET PO SCH (09:04)
[2016-10-10] MEDS: metOLazone 2.5 MG TABLET PO SCH (09:04)
[2016-10-10] MEDS: POTASSIUM CHLORIDE 8 MEQ CAPSULE PO SCH (09:05)
[2016-10-10] MEDS ORDERED: SKIN HEALING OINT (AQUAPHOR) 50 GM TUBE TOP PRN (09:22)
--- NOTE | 2016-10-10 09:42 | XRay Report ---
XR chest 1V portable Indication: Pneumonia Comparison: Chest x-ray 10/08/2016. Technique: Portable AP chest was performed. Findings: Borderline cardiomegaly is stable. Hazy opacification of the right lung base as well as somewhat more focal opacification in the left cardiophrenic angle and costophrenic angle are present having worsened in the left lung base since comparison study. Upper lungs clear. Bones and soft tissues demonstrate no significant abnormalities. Impression: 1. Haziness present within the right lung base may in part reflect dependent pleural fluid or atelectasis. Overall appearance is stable. 2. Worsening airspace opacification in the left lung base as differential considerations including atelectasis as well as infection and pulmonary edema. A minimal amount of left-sided pleural fluid is not excluded. 3. Not mentioned above an NG tube present which appears to terminate within the gastric fundus. 10/10/2016 9:36 AM PROCEDURE INTERPRETED AT [facility] DEPARTMENT OF RADIOLOGY Final Report Signed by: Dr. Carlos Michael
--- NOTE | 2016-10-10 09:56 | Hospitalist Progress Note ---
Assessment and Plan - Time spent with patient Time spent with patient: Greater than 30 minutes (1) Diabetic ketoacidosis Status: Acute Assessment and plan: Patient still has a gap of 19. Will continue insulin infusion and serial monitoring. We will continue hydration. Current Visit: Yes (2) Sepsis Status: Acute Assessment and plan: Continue antibiotics. His white blood cell count remains high and has elevated bands however has no fever. Will continue management. Current Visit: Yes (3) Pneumonia Status: Acute Assessment and plan: Patient apparently exhibited signs of aspiration. Currently n.p.o. consult speech. Current Visit: Yes (4) Acute renal failure Status: Acute Assessment and plan: Appreciate nephrology assistance. Current Visit: Yes (5) Diabetes mellitus Status: Acute Assessment and plan: HgA1c is 13. Currently in DKA. Current Visit: Yes (6) Anemia Status: Acute Assessment and plan: We will transfuse 2 units packed red blood cells. Obtain Hemoccult Current Visit: Yes Hospitalist: Subjective Interval history: No complaints, no overnight events. Exam - Constitutional Vitals: Period Temp Pulse Resp BP Sys/Desai Pulse Ox Last 24 Hr 96.7 F-97.9 F 87-101 15-34 98-178/45-86 97-100 General appearance: no acute distress - Head Head exam: Present: normocephalic, atraumatic - Eye Eye exam: Present: EOMI Pupils: Present: LULÚ - ENT ENT exam: Present: normal exam - Neck Neck exam: Present: normal inspection - Respiratory Respiratory exam: Present: other (Mild to moderate secretions in the trachea with coarse breath sounds.). Absent: rhonchi, wheezes - Cardiovascular Cardiovascular exam: Present: regular rate and rhythm. Absent: gallop, rubs, systolic murmur - GI/Abdominal GI/Abdominal exam: Present: normal bowel sounds, soft. Absent: distended, firm , guarding, tenderness, rebound - Extremities Exam Extremities exam: Present: normal inspection. Absent: calf tenderness, edema Results - Labs CBC & BMP: 10/10/16 04:32 10/10/16 04:32 Lab Results: I have reviewed the past 24 hour labs
[2016-10-10 10:31] LABS: Calcium 7.2 MG/DL (8.5-10.1); Osmolality,Calculated 284.3 MOS/KG (273-304); Potassium 3.9 MMOL/L (3.5-5.1)
[2016-10-10 14:52] LABS: Calcium 7.1 MG/DL (8.5-10.1); Osmolality,Calculated 282.7 MOS/KG (273-304)
--- NOTE | 2016-10-10 17:39 | Nephrology Progress Note ---
Nephrology - PN: Subj Interval history: He is more talkative today. He still has mild confusion. He denies shortness of breath. Exam (PN)-Nephrology - Vital Signs Vital signs: Period Temp Pulse Resp BP Sys/Desai Pulse Ox Last 24 Hr 97.4 F-97.9 F 26-100 15-34 115-178/59-86 97-100 Exam: ENT: Normal Cardiovascular: Regular rate and rhythm. No murmur rub or gallop Lungs: Bilateral rhonchi Extremities: No edema - Lab 10/10/16 04:32 10/10/16 14:12 Most recent lab results ABG pH 7.304 (7.35-7.45) L 10/07/16 15:50 ABG pCO2 23.1 MM HG (35-48) L 10/07/16 15:50 ABG pO2 109.0 MM HG (80-95) H 10/07/16 15:50 ABG HCO3 11.2 MMOL/L (20-26) L 10/07/16 15:50 ABG O2 Saturation 97.1 % (95-100) 10/07/16 15:50 Calcium 7.1 MG/DL (8.5-10.1) L 10/10/16 14:12 Phosphorus 2.9 MG/DL (2.5-4.9) 10/08/16 02:10 Magnesium 2.0 MG/DL (1.8-2.4) 10/09/16 04:32 Assessment and Plan (1) Acute renal failure Status: Acute Assessment and plan: 61-year-old man admitted with: * DKA. * Pneumonia. Continue current antibiotics * Chronic renal failure stage III. Baseline creatinine 1.8 -2.0 * Acute renal failure. Renal function is slowly improving * Lactic acidosis. Metformin has been discontinued Current Visit: Yes (2) Altered mental status Status: Acute Current Visit: Yes (3) Diabetes mellitus Status: Acute Current Visit: Yes (4) Diabetic ketoacidosis Status: Acute Current Visit: Yes (5) Lactic acidosis Status: Acute Current Visit: Yes (6) Pneumonia Status: Acute Current Visit: Yes
[2016-10-11 00:05] LABS: Calcium 7.2 MG/DL (8.5-10.1); Osmolality,Calculated 283.4 MOS/KG (273-304); Potassium 4.4 MMOL/L (3.5-5.1)
[2016-10-11] MEDS: INSULIN REGULAR DRIP 100 ML IV SCH ×2 (01:56→21:30)
[2016-10-11] MEDS: ALBUTEROL/IPRATROPIUM 3 ML NEB RESP TX SCH ×5 (03:00→19:46)
[2016-10-11 03:48] LABS: Basophils % 0.2 % (0.0-0.8); Eosinophils # 0.6 10*3/uL (0.0-0.87); Eosinophils % 2.9 % (0.00-10.9); Hematocrit 22.4 VOL% (42.0-52.0); Immature Granulocytes % 0.5 %; Immature Granulocytes Absolute 0.11 #; Lymphocytes # 1.2 10*3/uL (1.4-4.0); Lymphocytes % 5.8 % (21.2-54.2); Mean Corpuscular HGB Conc 31.3 GM/DL (32-36); Mean Corpuscular Hemoglobin 24 PG (27-34); Mean Platelet Volume 10.7 FL (9.6-12.0); Monocytes # 0.7 10*3/uL (0.11-0.8); Monocytes % 3.4 % (1.7-12.7); NRBC # 0.03 10*3/uL; Neutrophils # 17.5 10*3/uL (1.4-7.4); Neutrophils % 87.2 % (38.7-73.9); Platelet Count 169 T/CUMM (130-400); Red Blood Count 2.91 MC/CUMM (3.8-5.5); Red Cell Distribution Width 18.6 % (9.3-17.3); White Blood Count 20.1 T/CUMM (4-12)
[2016-10-11 04:34] LABS: Calcium 7.2 MG/DL (8.5-10.1); Osmolality,Calculated 286.1 MOS/KG (273-304)
[2016-10-11 04:37] LABS: Magnesium 1.7 MG/DL (1.8-2.4); Phosphorous 3.1 MG/DL (2.5-4.9)
[2016-10-11 05:08] LABS: Band Neutrophils 4 % (0-10); Lymphocytes 7 % (20-55); Metamyelocytes 1 %; Platelet Estimate Normal; Segmented Neutrophils 85 % (50-85); Total Cells Counted 100
[2016-10-11] MEDS ORDERED: LIDOCAINE 1%/EPI INJ 20 ML VIAL ONE (06:16)
--- NOTE | 2016-10-11 06:42 | CT Report ---
Referring physician: Mago Rodriguez MD Exam: CT brain without contrast Date: October 11, 2016 Comparison: CT brain without contrast September 28, 2010 Reason: Status post fall, concern for head trauma The patient is an inpatient who was admitted on October 07, 2016. Technique: Axial images of the head were obtained without the use of contrast. Total DLP was 1042.6 mGy*cm. Findings: There are again remote lacunar infarctions involving both basal ganglia and the genu of the internal capsules. There is also mild generalized cerebral and cerebellar atrophy/volume loss and probable chronic microvascular ischemic change. The lateral ventricles are mildly prominent, likely secondary to central atrophy/volume loss. No midline shift is present. There is no evidence of recent intracranial hemorrhage, abnormal mass effect or an acute infarction. No acute osseous process is seen. There is mild mucosal thickening within the left sphenoid sinus. The mastoid air cells appear clear. Impression: 1. No acute intracranial process is identified. 2. There are again remote lacunar infarctions involving both basal ganglia and the genu of the internal capsules. 3. There is mild generalized cerebral and cerebellar atrophy/volume loss and probable chronic microvascular ischemic change. This appears to have progressed since the prior study of September 28, 2010. The CT exam was performed using one or more of the following dose reduction techniques: Automated exposure control and adjustment of the mA and/or kV according to patient size. PROCEDURE INTERPRETED AT [facility] DEPARTMENT OF RADIOLOGY Final Report Signed by: Dr. Roly Ibarra
[2016-10-11] MEDS: LINEZOLID INJ 600 MG in PREMIX 1 EACH IV SCH ×2 (07:28→18:02)
[2016-10-11] MEDS: DEXTROSE 5% NACL 0.45% 1,000 ML IV SCH ×2 (07:38→15:15)
[2016-10-11] MEDS: LEVOTHYROXINE 100 MCG TABLET PO SCH (07:38)
[2016-10-11] MEDS ORDERED: SODIUM CHLORIDE 0.9% 250 ML IV PRN (07:41)
[2016-10-11] MEDS: PIPERACILLIN/TAZOBACTAM 3,375 MG in SODIUM CHLORIDE 0.9% 100 ML IV SCH ×2 (09:33→20:21)
[2016-10-11] MEDS: PANTOPRAZOLE 40 MG VIAL IV SCH ×2 (09:48→21:26)
[2016-10-11] MEDS: metOLazone 2.5 MG TABLET PO SCH (09:49)
[2016-10-11] MEDS: POTASSIUM CHLORIDE 8 MEQ CAPSULE PO SCH (09:49)
[2016-10-11] MEDS: ATORVASTATIN 10 MG TABLET PO SCH (09:49)
[2016-10-11] MEDS: BACITRACIN OINT 0.9 GM PACK TOP SCH (09:49)
[2016-10-11] MEDS: DESITIN 4OZ/NYSTATIN 15 GRAM MIXTURE PASTE TOP SCH ×2 (09:52→21:28)
--- NOTE | 2016-10-11 10:08 | Hospitalist Progress Note ---
Assessment and Plan - Time spent with patient Time spent with patient: Greater than 30 minutes (1) Diabetic ketoacidosis Status: Acute Assessment and plan: Patient still has a gap of 18. Will continue insulin infusion and serial monitoring. We will continue hydration. Current Visit: Yes (2) Sepsis Status: Acute Assessment and plan: Continue antibiotics. His white blood cell count remains high and has elevated bands however has no fever. Will continue management. Current Visit: Yes (3) Pneumonia Status: Acute Assessment and plan: Patient apparently exhibited signs of aspiration. Speech cleared for a pured diet. Current Visit: Yes (4) Acute renal failure Status: Acute Assessment and plan: Creatinine stable at 5. Appreciate nephrology assistance. Current Visit: Yes (5) Diabetes mellitus Status: Acute Assessment and plan: HgA1c is 13. Currently in DKA. Current Visit: Yes (6) Anemia Status: Acute Assessment and plan: Hemoglobin level dropped again. Hemoccult positive. We will transfuse another 2 units packed red blood cells. Current Visit: Yes Hospitalist: Subjective Interval history: Yesterday patient got out of his bed and fell and hit his head. He received sutures to his ankle and Steri-Strips his face. CT of his head was performed and was negative. Exam - Constitutional Vitals: Period Temp Pulse Resp BP Sys/Desai Pulse Ox Last 24 Hr 97.3 F-97.9 F 86-96 16-33 91-168/59-84 99-100 General appearance: no acute distress - Head Head exam: Present: normocephalic, laceration (Right temporal Steri-Strips) - Eye Eye exam: Present: EOMI Pupils: Present: LULÚ - ENT ENT exam: Present: normal exam - Neck Neck exam: Present: normal inspection - Respiratory Respiratory exam: Present: other (Coarse breath sounds bilaterally.). Absent: rhonchi, wheezes - Cardiovascular Cardiovascular exam: Present: regular rate and rhythm. Absent: gallop, rubs, systolic murmur - GI/Abdominal GI/Abdominal exam: Present: normal bowel sounds, soft. Absent: distended, firm , guarding, tenderness, rebound - Extremities Exam Extremities exam: Present: normal inspection. Absent: calf tenderness, edema Results - Labs CBC & BMP: 10/11/16 03:07 10/11/16 03:07 Lab Results: I have reviewed the past 24 hour labs
[2016-10-11 13:49] LABS: Calcium 7.5 MG/DL (8.5-10.1); Osmolality,Calculated 285.3 MOS/KG (273-304); Potassium 4.1 MMOL/L (3.5-5.1)
--- NOTE | 2016-10-11 15:08 | Nephrology Progress Note ---
Nephrology - PN: Subj Interval history: He remains confused. He fell last night has a laceration above his right eyebrow. Blood pressure stable Exam (PN)-Nephrology - Vital Signs Vital signs: Period Temp Pulse Resp BP Sys/Desai Pulse Ox Last 24 Hr 96.8 F-98.4 F 86-96 16-30 91-188/59-89 93-100 Exam: ENT: Steri-Strips above the right brow Cardiovascular: Regular rate and rhythm. No murmur rub or gallop Lungs: Bilateral rhonchi Extremities: No edema - Lab 10/11/16 03:07 10/11/16 13:02 Most recent lab results ABG pH 7.304 (7.35-7.45) L 10/07/16 15:50 ABG pCO2 23.1 MM HG (35-48) L 10/07/16 15:50 ABG pO2 109.0 MM HG (80-95) H 10/07/16 15:50 ABG HCO3 11.2 MMOL/L (20-26) L 10/07/16 15:50 ABG O2 Saturation 97.1 % (95-100) 10/07/16 15:50 Calcium 7.5 MG/DL (8.5-10.1) L 10/11/16 13:02 Phosphorus 3.1 MG/DL (2.5-4.9) 10/11/16 03:07 Magnesium 1.7 MG/DL (1.8-2.4) L 10/11/16 03:07 Assessment and Plan (1) Acute renal failure Status: Acute Assessment and plan: 61-year-old man admitted with: * DKA. * Pneumonia. Continue current antibiotics * Chronic renal failure stage III. Baseline creatinine 1.8 -2.0 * Acute renal failure. Creatinine is slightly higher today. Metolazone held * Lactic acidosis. Metformin has been discontinued Current Visit: Yes (2) Altered mental status Status: Acute Current Visit: Yes (3) Diabetes mellitus Status: Acute Current Visit: Yes (4) Diabetic ketoacidosis Status: Acute Current Visit: Yes (5) Lactic acidosis Status: Acute Current Visit: Yes (6) Pneumonia Status: Acute Current Visit: Yes
--- NOTE | 2016-10-11 16:44 | Gastrointestinal Consult Note ---
Assessment and Plan (1) Acute posthemorrhagic anemia Status: Acute Assessment and plan: This patient has a history of erosive esophagitis which was LA class D (the most severe type) back when last scoped on 04/26/14. We will perform upper endoscopy to see if this is the same and place the patient on acid blocking medication on a permanent basis depending on how severe this appears or if this is more consistent with gastroparesis versus Alejandra-Norwood tear we will treat the patient as appropriate for those conditions. He is both hungry and awake I do not see a reason not to advance his diet to something more solid diet as he is teeth appear to work. This should help him ultimately clear his ketones. He needs to be n.p.o. after midnight for the above upper endoscopy. We will continue to watch his CBCs and transfuse him as needed. Protonix twice daily is advised as well. Current Visit: Yes (2) History of esophagitis Status: Acute Assessment and plan: Again this was seen in April 2014, at that time was LA class D. It is likely this patient has the same esophagitis present although gastroparesis and Alejandra -Norwood tear may also produce this level of anemia. We will look for evidence of gastritis and possibly rule out celiac sprue in addition if no clear bleeding source is identified. This states that he has had colonoscopy done sometime back in the [place], if we do not find an upper GI source we may consider obtaining a colonoscopy likely as an outpatient. We will continue to follow his hematocrit during his hospitalization. Current Visit: Yes (3) Guaiac positive stools Status: Acute Assessment and plan: This is a manifestation of the patient's blood loss into the GI tract, continue Protonix 40 mg IV twice daily and observe hematocrit over time. He may need further transfusion in the future. Current Visit: Yes History of Present Illness Chief complaint: Decrease in hematocrit to 22%, guaiac positive stools, hx of esophagitis History of present illness: Mr. Fraire is a 61 year old male who states that he had left the [place] approximately a year and a half ago and states that he had been a former [employer]. Given the state of his diabetes, I seriously doubt these statements. He states that he has had some problems with nausea and reflux for some time and high fat foods seem to set him off. He does not take any acid blocking medications as an outpatient. [facility] clinic records state this patient was following with us as recently as 2014 and at that time was on aspirin and Brilinta. Although his most recent medication list does not list these as his current medications. He has been having some problems with his diabetes with sugars running high and has failed 2 swallowing studies earlier in his stay but past 1 and was put on a pured diet this admission which she is done adequately with. He is able to swallow water at the bedside with no evidence of aspiration and seems to have his cognition back to a degree large extent and so we may go ahead and put him on an interim diet while awaiting to do the upper endoscopy to look for bleeding source. He is getting the second of 2 units transfused for hematocrit that dropped down to 22.4 %. He does not recall having severe nausea or vomiting. He does have grossly guaiac positive dark green stool and with his recent blood sugars up to 1415 this admission is certainly possible that he had been have nausea and vomiting induced a Laejandra- Norwood tear. He was dehydrated with a creatinine of 6.0 on admission and a sodium that had dropped down to 117 with elevation in his white blood cell count 19.3. With continued rehydration his hematocrit is dropped from 27.6 down to 22.4%. This patient had been seen by Dr. Jacob years ago while he was over at [facility] with previous EGD done on 04/26/14 demonstrating grade 4 esophagitis in the distal half of the esophagus the gastric mucosa and duodenal mucosa otherwise looked normal. It is likely he may have developed a similar presentation at this time. He states that he has had a colonoscopy back in the [place], but this may have been many years ago. There is no family history of colon cancer or polyps, the patient cannot recall what was found during colonoscopy. Home Medications Medication Instructions Recorded Confirmed Type Atorvastatin [Lipitor] 10 mg PO DAILY 10/07/16 10/07/16 History Levothyroxine Tab [Synthroid Tab] 100 mcg PO DAILY 10/07/16 10/07/16 History Potassium Chloride 8 meq PO DAILY 10/07/16 10/07/16 History Sitagliptin Phos/Metformin HCl 1 each PO BID W/MEALS 10/07/16 10/07/16 History [Janumet Xr 50-1,000 mg Tablet] metOLazone [Metolazone] 0.5 mg PO DAILY 10/07/16 10/07/16 History Allergies Allergy/AdvReac Type Severity Reaction Status Date / Time No Known Allergies Allergy Unverified 10/07/16 14:16 Medical,Surgical,& Family Hx - Medical History Cardio: History of: Hypertension, NC Psychological: History of: Depression Neurology: History of: Cerebrovascular Accident, Dementia Endocrine: History of: Diabetes Mellitus (IDDM), Thyroid Disorder - Family History Family History: Comment Only: Family Diabetes (mother and father) - Social History Smoking Status: Never smoker Frequency of Alcohol Use: None Type of Drug Use: None Review of systems: Constitutional: Denies fever, chills, nausea, and vomiting Eyes: Denies dry eyes, and scleral icterus HENT: Denies headaches Cardiovascular: Denies acute chest pain and claudication Respiratory: Admits to recent shortness of breath, wheezing, and difficulty breathing, denies cough Gastrointestinal: As noted in the HPI Genitourinary: Denies dysuria and hematuria Neurologic: Patient states that he has been experiencing some significant field blocks/vision loss, and loss of sensation Musculoskeletal: He does admit to some joint swelling, joint stiffness, and muscular weakness, he is missing his left great toe Psychiatric: Denies depression and melchor symptoms Heme-Lymph: He does admit to some easy bruising, but no lymph node enlargement or tenderness, night sweats, excessive bleeding Allergies-immunologic: Denies pruritus and rhinorrhea Exam - Constitutional Vitals: Period Temp Pulse Resp BP Sys/Desai Pulse Ox Last 24 Hr 96.8 F-98.4 F 84-97 16-84 91-188/59-89 93-100 General appearance: over weight Exam: Constitutional: Well-developed, well-nourished, alert, and in no acute distress Head and face: Head: Normocephalic, but the patient does have Steri-Strips on his right lateral eyebrow indicative recent head trauma Eyes: Conjunctiva without injection, no gross scleral icterus, pupils equal and round bilaterally--early cataracts noted Ears: Intact to conversation in both ears Nose: External appearance is normal, nares patent Mouth: Oral mucous membranes moist without erythema dentition noted to be without erosion--the patient was able to swallow water for me without any difficulty or aspiration signs or symptoms. Neck: Normal appearance, no masses or tenderness, trachea midline Thyroid: Gland midline and appropriate size for age Respiratory: Normal respiratory effort, clear to auscultation without wheezes, rhonchi or rales Cardiovascular: Regular rate and rhythm, normal S1, S2, the exam is without rubs, murmurs or gallops. Gastrointestinal: Nontender to palpation, normal active bowel sounds, tone normal without rigidity or guarding, no masses present, no hepatomegaly, no spleen tip felt. No rectal exam obtained but a large puddle of dark green stool noted and this was tested and noted to be grossly guaiac positive. 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 Skin and subcutaneous tissue: Again as noted above patient's pretibial regions are thickened and dark, skin is extremely dry/ashy, and he is missing his great toe on the left side Neurologic: The patient is grossly oriented to person place and time, cranial nerves show tongue movements are normal with normal tongue extrusion midline, light touch sensation is intact. Psychiatric: No hallucinations or delusions are present, does not appear depressed Results - Labs CBC & BMP: 10/11/16 03:07 10/11/16 13:02
[2016-10-11] MEDS: DEXTROSE 10% IV SCH (17:38)
[2016-10-11] MEDS: SODIUM CHLORIDE IV SCH (17:38)
--- NOTE | 2016-10-11 21:00 | Event Note ---
Procedure note Laceration repair-left ankle Mr. Fraire fell in his room and sustained a laceration to the lateral left ankle requiring suture placement. This is a Y-shaped laceration measuring approximately 2 inches long. No foreign bodies in the wound. A simple /1 layer closure was performed. The site was appropriately cleaned, prepped and draped in sterile fashion. 1% lidocaine with epinephrine was used for local anesthetic approximately 4 cc. The laceration was re-approximated with 3-0 silk. Simple interrupted sutures were placed for a total of 4. The patient tolerated the procedure well. Hemostasis and good cosmetic outcome was obtained. Antibiotic cream was applied and a Band-Aid used to cover the wound. Sutures should be removed in approximately 6-8 days Please note this is a late entry. This procedure was performed at 6:40 AM on . The patient's nurses were at the bedside.
[2016-10-11 21:55] LABS: Calcium 7.1 MG/DL (8.5-10.1); Osmolality,Calculated 285.1 MOS/KG (273-304); Potassium 4.1 MMOL/L (3.5-5.1)
[2016-10-12] MEDS: ALBUTEROL/IPRATROPIUM 3 ML NEB RESP TX SCH ×6 (00:02→20:02)
[2016-10-12] MEDS: DEXTROSE 10% IV SCH ×4 (00:29→20:48)
[2016-10-12] MEDS: SODIUM CHLORIDE IV SCH ×4 (00:29→20:48)
[2016-10-12 05:09] LABS: Basophils % 0.3 % (0.0-0.8); Eosinophils # 0.5 10*3/uL (0.0-0.87); Hematocrit 27.5 VOL% (42.0-52.0); Immature Granulocytes % 0.7 %; Immature Granulocytes Absolute 0.09 #; Lymphocytes # 1.4 10*3/uL (1.4-4.0); Lymphocytes % 10.8 % (21.2-54.2); Mean Corpuscular HGB Conc 32.7 GM/DL (32-36); Mean Corpuscular Hemoglobin 26 PG (27-34); Mean Corpuscular Volume 79.7 FL (87-102); Mean Platelet Volume 9.8 FL (9.6-12.0); Monocytes # 0.5 10*3/uL (0.11-0.8); Monocytes % 4.3 % (1.7-12.7); Neutrophils # 10.1 10*3/uL (1.4-7.4); Neutrophils % 79.9 % (38.7-73.9); Platelet Count 174 T/CUMM (130-400); Red Blood Count 3.45 MC/CUMM (3.8-5.5); Red Cell Distribution Width 18.4 % (9.3-17.3); White Blood Count 12.6 T/CUMM (4-12)
[2016-10-12] MEDS: LINEZOLID INJ 600 MG in PREMIX 1 EACH IV SCH ×2 (05:21→18:09)
[2016-10-12 05:32] LABS: Anisocytosis Slight; Elliptocytes Few; Helmet Cells Few; Microcytosis Slight; Platelet Estimate Normal
[2016-10-12 05:33] LABS: Poikilocytosis Few; Polychromasia Few; Schistocytes Few
[2016-10-12 06:00] LABS: Calcium 7.1 MG/DL (8.5-10.1); Magnesium 1.9 MG/DL (1.8-2.4); Osmolality,Calculated 289.3 MOS/KG (273-304)
[2016-10-12] MEDS: LEVOTHYROXINE 100 MCG TABLET PO SCH (06:03)
[2016-10-12] MEDS ORDERED: PROPOFOL 200 MG/20 ML VIAL IV ONE (07:25)
[2016-10-12] MEDS ORDERED: LIDOCAINE 2% 5 ML VIAL ONE (07:25)
[2016-10-12] MEDS: DEXTROSE 5% NACL 0.45% 1,000 ML IV SCH ×4 (07:30→23:32)
--- NOTE | 2016-10-12 07:44 | Operative Note ---
Date of procedure: 10/12/16 Pre-op diagnosis: Patient with prior esophagitis, hematocrit 21--> 27% post 2 units Post-op diagnosis: other (This patient likely has diabetic gastroparesis resulting in LA class D erosive esophagitis 20 cm, most certainly one of the main causes for his anemia, mild patchy gastritis and duodenitis also incidentally noted as well as a 5 cm hiatal hernia. This patient is at high risk for aspiration.) Procedure: PROCEDURE: Esophagogastroduodenoscopy (EGD) with cold biopsy for pathology REFERRING PHYSICIAN: Dr. Mago Rodriguez MD INDICATIONS: This is a patient who has dark stools, previous history of erosive esophagitis when scope by Dr. Jacob in April 2014, now with hematocrit dropped to 21% status post 2 unit transfusion now up to 27%. The prior H&P was reviewed and interrim changes are as noted: No change from GI consultation yesterday ENDOSCOPIST: Miller Alanis MD ENDOSCOPE: Olympus Video 100 System upper endoscope ASA CLASS: 4 EXAM: CV: regular rate and rhythm respiratory: Clear without wheezes abdominal: active bowel sounds MEDICATION: Per nursing anesthesia protocol, see their notes PROCEDURE: After discussion of the potential risks and benefits of upper endoscopy, the informed consent was obtained. The patient was then placed in the left lateral decubitus position where sedation was achieved as noted above. Esophageal intubation was performed without difficulty, and the endoscope was advanced through the esophagus, stomach and duodenum. A slow withdrawal was then performed with retroflexion in the stomach for careful inspection of the incisura angularis, fundus and cardia. The scope was then returned to a neutral position and withdrawn through the esophagus. The patient tolerated the procedure well and without complication. BIOPSIES: Gastric antrum/body PHOTOGRAPHS: Obtained FINDINGS: Hypopharynx and Larynx: Normal Esohagoscopy Upper and middle thirds: Erosive esophagitis stretching from 18 cm to 38 cm , LA class D Lower third erosive esophagitis between 18 cm and 38 cm, LA class D Esophogastric junctions: The LA class D erosive esophagitis without gross evidence of stricturing, unable to see Lopez's if present. Gastroscopy: Cardia/Fundus: This patient has a 5 cm hiatal hernia, large amount of retained food and liquid in the fundus Body: Large amount of retained food and liquid in the body, biopsies obtained Antrum and pylorus mild patchy gastritis, biopsied. Pylorus did not appear stenotic. Duodenoscopy: Bulb mild erosive duodenitis Second and third portions: Normal IMPRESSION: This patient likely has diabetic gastroparesis resulting in LA class D erosive esophagitis 20 cm, most certainly one of the main causes for his anemia, mild patchy gastritis and duodenitis also incidentally noted as well as a 5 cm hiatal hernia. This patient is at high risk for aspiration. RECOMMENDATIONS: Follow up for biopsy results in 1-2 weeks by phone [phone] Continue anti-gastroesophageal reflux measures (avoid carbonated and acidic beverages, avoid eating within 2 hours of bedtime, avoid tight fitting clothing , and elevate the front bed posts 6 inches prior to sleeping. Protonix 40 mg IV twice daily for the present time until we can initiate the Reglan. Reglan elixir (1 mg/mL) 10 mL p.o. q. before meals and nightly Miller Alanis MD COPY TO: Dr. Mago Rodriguez MD Anesthesia: MAC Surgeon / Physician: Miller Alanis Estimated blood loss: minimal Specimens: other (Gastric antrum/body) Condition: stable Disposition: post procedure unit (G.I. Suite) Results - Labs CBC & BMP: 10/12/16 04:23 10/12/16 04:23 Discharge Plan - Discharge Medications No Action Atorvastatin [Lipitor] 10 mg PO DAILY Potassium Chloride 8 meq PO DAILY Sitagliptin Phos/Metformin HCl [Janumet Xr 50-1,000 mg Tablet] 1 each PO BID W/MEALS metOLazone [Metolazone] 0.5 mg PO DAILY Levothyroxine Tab [Synthroid Tab] 100 mcg PO DAILY - Follow Up or Referral - Forms/Instructions
--- NOTE | 2016-10-12 08:01 | Anesthesia ---
Anesthesia Post OP - Post Ansesthetic Evaluation Patient seen in post op: Yes Resp: within normal limits CV: within normal limits Mental: within normal limits Temp: within normal limits [id number]: within normal limits Nausea and Vomiting: within normal limits Pain: within normal limits
--- NOTE | 2016-10-12 08:02 | Gastrointestinal Progress Note ---
Assessment and Plan (1) Acute posthemorrhagic anemia Status: Acute Assessment and plan: This patient has a history of erosive esophagitis which was LA class D (the most severe type) back when last scoped on 04/26/14. We will perform upper endoscopy to see if this is the same and place the patient on acid blocking medication on a permanent basis depending on how severe this appears or if this is more consistent with gastroparesis versus Alejandra-Norwood tear we will treat the patient as appropriate for those conditions. He is both hungry and awake I do not see a reason not to advance his diet to something more solid diet as he is teeth appear to work. This should help him ultimately clear his ketones. He needs to be n.p.o. after midnight for the above upper endoscopy. We will continue to watch his CBCs and transfuse him as needed. Protonix twice daily is advised as well. 10/12/16-- This patient likely has diabetic gastroparesis resulting in LA class D erosive esophagitis 20 cm, most certainly one of the main causes for his anemia, mild patchy gastritis and duodenitis also incidentally noted as well as a 5 cm hiatal hernia. This patient is at high risk for aspiration. Current Visit: Yes (2) History of esophagitis Status: Acute Assessment and plan: Again this was seen in April 2014, at that time was LA class D. It is likely this patient has the same esophagitis present although gastroparesis and Alejandra -Norwood tear may also produce this level of anemia. We will look for evidence of gastritis and possibly rule out celiac sprue in addition if no clear bleeding source is identified. This states that he has had colonoscopy done sometime back in the [place], if we do not find an upper GI source we may consider obtaining a colonoscopy likely as an outpatient. We will continue to follow his hematocrit during his hospitalization. 10/12/16--the endoscopy done today demonstrates 20 cm of LA class D (the most severe) esophagitis likely the cause of the patient's blood loss. This is likely spurred on by his fairly significant gastroparesis which may be a result of his recent DKA episode. At least in the short-term he needs Reglan as an antinausea and promotility agent. He may be able to tolerate a renal diet--we will watch and see. Current Visit: Yes (3) Diabetic gastroparesis Status: Acute Assessment and plan: Seen on today's upper endoscopy with a great amount of liquid and solid material in the stomach. This will need to be treated with some Reglan in order to decrease his reflux issues. Even though he does not feel classic pain in his chest this is likely the source of his anemia Current Visit: Yes Gastroenterology - PN: Subj Interval history: This patient is still somewhat confused, he is in soft restraints. He underwent upper endoscopy this morning with the following findings: This patient likely has diabetic gastroparesis resulting in LA class D erosive esophagitis 20 cm, most certainly one of the main causes for his anemia, mild patchy gastritis and duodenitis also incidentally noted as well as a 5 cm hiatal hernia. This patient is at high risk for aspiration. His hematocrit is improved significantly with the blood transfusions. 22% now up to 27%. Exam (Progress Note) - Constitutional Vitals: Period Temp Pulse Resp BP Sys/Desai Pulse Ox Last 24 Hr 96.8 F-98.4 F 80-94 14-84 112-188/50-068 93-100 General appearance: mild distress - Head Head exam: Present: normocephalic - Eye Eye exam: Present: EOMI Pupils: Present: LULÚ - Respiratory Respiratory exam: Present: clear to auscultation bilaterally - Cardiovascular Cardiovascular exam: Present: regular rate and rhythm - GI/Abdominal GI/Abdominal exam: Present: normal bowel sounds, soft. Absent: tenderness, rebound - Neurological Exam Neurological exam: Present: alert, altered (Confused) - Psychiatric Psychiatric exam: Present: normal affect, normal mood Results - Labs CBC & BMP: 10/12/16 04:23 10/12/16 04:23
[2016-10-12] MEDS: BACITRACIN OINT 0.9 GM PACK TOP SCH (09:09)
[2016-10-12] MEDS: PIPERACILLIN/TAZOBACTAM 3,375 MG in SODIUM CHLORIDE 0.9% 100 ML IV SCH ×2 (09:09→20:48)
[2016-10-12] MEDS: ATORVASTATIN 10 MG TABLET PO SCH (09:10)
[2016-10-12] MEDS: PANTOPRAZOLE 40 MG VIAL IV SCH ×2 (09:10→20:49)
[2016-10-12] MEDS: DESITIN 4OZ/NYSTATIN 15 GRAM MIXTURE PASTE TOP SCH ×2 (09:10→20:49)
[2016-10-12] MEDS: POTASSIUM CHLORIDE 8 MEQ CAPSULE PO SCH (09:10)
--- NOTE | 2016-10-12 09:52 | Hospitalist Progress Note ---
Assessment and Plan - Time spent with patient Time spent with patient: Greater than 30 minutes (1) Diabetic ketoacidosis Status: Acute Assessment and plan: Patient continues to have an elevated gap. Will begin feeding. We will continue hydration. Current Visit: Yes (2) Sepsis Status: Acute Assessment and plan: Continue antibiotics. His white blood cell count appears to be improving. Will continue management. Current Visit: Yes (3) Pneumonia Status: Acute Assessment and plan: Patient apparently exhibited signs of aspiration. Speech cleared for a pured diet. Current Visit: Yes (4) Acute renal failure Status: Acute Assessment and plan: Creatinine slowly improving. Appreciate nephrology assistance. Current Visit: Yes (5) Diabetes mellitus Status: Acute Assessment and plan: HgA1c is 13. Currently in DKA. Current Visit: Yes (6) Anemia Status: Acute Assessment and plan: GI was consulted for evaluation of positive heme occult. EGD revealed gastroparesis, gastritis. Hg is stable. Current Visit: Yes (7) Gastroparesis Status: Acute Assessment and plan: Continue medications. Current Visit: Yes Hospitalist: Subjective Interval history: Patient was seen before EGD scheduled for today. He appears to be stable, has no complaints. Exam - Constitutional Vitals: Period Temp Pulse Resp BP Sys/Desai Pulse Ox Last 24 Hr 96.8 F-98.4 F 80-94 14-84 91-188/50-068 93-100 General appearance: no acute distress - Head Head exam: Present: normocephalic, atraumatic - Eye Eye exam: Present: EOMI Pupils: Present: LULÚ - ENT ENT exam: Present: normal exam - Neck Neck exam: Present: normal inspection - Respiratory Respiratory exam: Present: other (coarse breath sounds bilaterally.). Absent: rhonchi, wheezes - Cardiovascular Cardiovascular exam: Present: regular rate and rhythm. Absent: gallop, rubs, systolic murmur - GI/Abdominal GI/Abdominal exam: Present: normal bowel sounds, soft. Absent: distended, firm , guarding, tenderness, rebound - Extremities Exam Extremities exam: Present: normal inspection. Absent: calf tenderness, edema Results - Labs CBC & BMP: 10/12/16 04:23 10/12/16 04:23 Lab Results: I have reviewed the past 24 hour labs
[2016-10-12] MEDS: METOCLOPRAMIDE 10 MG/10 ML UDCUP PO SCH ×3 (11:14→20:49)
--- NOTE | 2016-10-12 15:31 | Nephrology Progress Note ---
Nephrology - PN: Subj Interval history: He is alert. He seems to be less confused today he denies shortness of breath Exam (PN)-Nephrology - Vital Signs Vital signs: Period Temp Pulse Resp BP Sys/Desai Pulse Ox Last 24 Hr 97.3 F-98.4 F 80-94 10-84 91-185/50-068 95-100 Exam: ENT: Normal Cardiovascular: Regular rate and rhythm. No murmur rub or gallop Lungs: Clear Extremities: No edema - Lab 10/12/16 04:23 10/12/16 04:23 Most recent lab results ABG pH 7.304 (7.35-7.45) L 10/07/16 15:50 ABG pCO2 23.1 MM HG (35-48) L 10/07/16 15:50 ABG pO2 109.0 MM HG (80-95) H 10/07/16 15:50 ABG HCO3 11.2 MMOL/L (20-26) L 10/07/16 15:50 ABG O2 Saturation 97.1 % (95-100) 10/07/16 15:50 Calcium 7.1 MG/DL (8.5-10.1) L 10/12/16 04:23 Phosphorus 3.1 MG/DL (2.5-4.9) 10/11/16 03:07 Magnesium 1.9 MG/DL (1.8-2.4) 10/12/16 04:23 Assessment and Plan (1) Acute renal failure Status: Acute Assessment and plan: 61-year-old man admitted with: * DKA. * Pneumonia. Continue current antibiotics * Chronic renal failure stage III. Baseline creatinine 1.8 -2.0 * Acute renal failure. Creatinine stable. Urine output adequate without diuretic * Lactic acidosis. Metformin has been discontinued Current Visit: Yes (2) Altered mental status Status: Acute Current Visit: Yes (3) Diabetes mellitus Status: Acute Current Visit: Yes (4) Diabetic ketoacidosis Status: Acute Current Visit: Yes (5) Lactic acidosis Status: Acute Current Visit: Yes (6) Pneumonia Status: Acute Current Visit: Yes
[2016-10-12] MEDS: INSULIN REGULAR DRIP 100 ML IV SCH (16:50)
[2016-10-13] MEDS: ALBUTEROL/IPRATROPIUM 3 ML NEB RESP TX SCH ×6 (01:09→20:07)
[2016-10-13] MEDS: SODIUM CHLORIDE IV SCH ×3 (03:26→18:09)
[2016-10-13] MEDS: INSULIN REGULAR DRIP 100 ML IV SCH (03:26)
[2016-10-13] MEDS: DEXTROSE 10% IV SCH ×3 (03:26→18:09)
[2016-10-13 06:12] LABS: Basophils % 0.2 % (0.0-0.8); Eosinophils # 0.4 10*3/uL (0.0-0.87); Eosinophils % 3.9 % (0.00-10.9); Hematocrit 28.8 VOL% (42.0-52.0); Hemoglobin 9.2 GM/DL (14.0-18.0); Immature Granulocytes % 0.9 %; Immature Granulocytes Absolute 0.09 #; Lymphocytes # 1.5 10*3/uL (1.4-4.0); Lymphocytes % 14.6 % (21.2-54.2); Mean Corpuscular HGB Conc 31.9 GM/DL (32-36); Mean Corpuscular Hemoglobin 26 PG (27-34); Mean Corpuscular Volume 80.7 FL (87-102); Monocytes # 0.8 10*3/uL (0.11-0.8); Monocytes % 7.2 % (1.7-12.7); Neutrophils # 7.7 10*3/uL (1.4-7.4); Neutrophils % 73.2 % (38.7-73.9); Platelet Count 174 T/CUMM (130-400); Red Blood Count 3.57 MC/CUMM (3.8-5.5); White Blood Count 10.4 T/CUMM (4-12)
[2016-10-13] MEDS: LINEZOLID INJ 600 MG in PREMIX 1 EACH IV SCH ×2 (06:30→18:10)
[2016-10-13] MEDS: LEVOTHYROXINE 100 MCG TABLET PO SCH (06:31)
[2016-10-13 06:50] LABS: Calcium 7.1 MG/DL (8.5-10.1); Osmolality,Calculated 288.8 MOS/KG (273-304)
--- NOTE | 2016-10-13 08:31 | Gastrointestinal Progress Note ---
Assessment and Plan (1) Acute posthemorrhagic anemia Status: Acute Assessment and plan: This patient has a history of erosive esophagitis which was LA class D (the most severe type) back when last scoped on 04/26/14. We will perform upper endoscopy to see if this is the same and place the patient on acid blocking medication on a permanent basis depending on how severe this appears or if this is more consistent with gastroparesis versus Alejandra-Norwood tear we will treat the patient as appropriate for those conditions. He is both hungry and awake I do not see a reason not to advance his diet to something more solid diet as he is teeth appear to work. This should help him ultimately clear his ketones. He needs to be n.p.o. after midnight for the above upper endoscopy. We will continue to watch his CBCs and transfuse him as needed. Protonix twice daily is advised as well. 10/12/16-- This patient likely has diabetic gastroparesis resulting in LA class D erosive esophagitis 20 cm, most certainly one of the main causes for his anemia, mild patchy gastritis and duodenitis also incidentally noted as well as a 5 cm hiatal hernia. This patient is at high risk for aspiration. 10/13/16--the patient appears to have rumination syndrome with mouthfuls of food spit out on his bedside tray. Nursing staff indicates that he is able to swallow approximately 80% of his food, he states that he has no chest pain whatsoever despite the appearance of 20 cm of LA class D erosive esophagitis. He also has quite severe diabetic gastroparesis and a large hiatal hernia adding to the picture. I feel he may have some aspiration pneumonia as a cause for an elevated white blood cell count and chronic cough. Current Visit: Yes (2) History of esophagitis Status: Acute Assessment and plan: Again this was seen in April 2014, at that time was LA class D. It is likely this patient has the same esophagitis present although gastroparesis and Alejandra -Norwood tear may also produce this level of anemia. We will look for evidence of gastritis and possibly rule out celiac sprue in addition if no clear bleeding source is identified. This states that he has had colonoscopy done sometime back in the [place], if we do not find an upper GI source we may consider obtaining a colonoscopy likely as an outpatient. We will continue to follow his hematocrit during his hospitalization. 10/12/16--the endoscopy done today demonstrates 20 cm of LA class D (the most severe) esophagitis likely the cause of the patient's blood loss. This is likely spurred on by his fairly significant gastroparesis which may be a result of his recent DKA episode. At least in the short-term he needs Reglan as an antinausea and promotility agent. He may be able to tolerate a renal diet--we will watch and see. 10/13/16--this is the cause of the 4+ guaiac positive stool and at least part of the reason (or the entire reason) for his anemia. Current Visit: Yes (3) Diabetic gastroparesis Status: Acute Assessment and plan: Seen on today's upper endoscopy with a great amount of liquid and solid material in the stomach. This will need to be treated with some Reglan in order to decrease his reflux issues. Even though he does not feel classic pain in his chest this is likely the source of his anemia. 10/13/16--the patient has developed some diarrhea which I suspect is partially due to passage of blood, partially due to the Reglan we have given him but we need to rule out C. difficile and so I am sending the stool off for this latter toxin check. Nursing staff does not feel that he needs a BMS. He is back on regular food--2200-calorie "consistent carb"/renal diet. Current Visit: Yes (4) Rumination disorder Status: Acute Assessment and plan: This patient has a chewing and spitting of on swallow food versus food that has been swallowed and regurgitated up then spit out at the bedside. This is tantamount to perhaps 20% or 30% of his diet. He can be seen on removal of his tray and was noted by myself and the nursing staff. Clearly the patient is able to swallow his pills and most of his food. With his dementia this may be more difficult to deal with and may be tied in with his severe esophagitis/ gastroparesis. One can hope that it would go away spontaneously as these problems are addressed more completely. The esophagitis has been going on for many years as this was seen on previous endoscopy done by Dr. Jacob back in 2013. The patient's ammonia level was checked earlier in the hospital stay on and found to be normal at 25--he will not benefit from lactulose. Current Visit: Yes Gastroenterology - PN: Subj Interval history: Chewed unswallowed food seen patient's tray yesterday--but the patient denies any difficulty with swallowing pills or other food and states that he has no atypical chest pain despite the fact that he has LA class D erosive esophagitis 20 cm, which I find odd. I suspect that this patient has rumination syndrome, perhaps brought about by the esophagitis and unconscious level. He also has a large hiatal hernia and severe gastroparesis worsened by his underlying diabetes. Exam (Progress Note) - Constitutional Vitals: Period Temp Pulse Resp BP Sys/Desai Pulse Ox Last 24 Hr 98.2 F-98.2 F 81-102 10-30 134-190/69-96 94-100 General appearance: no acute distress - Head Head exam: Present: normocephalic - Eye Eye exam: Present: EOMI Pupils: Present: LULÚ - Respiratory Respiratory exam: Present: decreased breath sounds (In the bases) - Cardiovascular Cardiovascular exam: Present: regular rate and rhythm - GI/Abdominal GI/Abdominal exam: Present: normal bowel sounds, distended, soft. Absent: guarding, tenderness, rebound - Neurological Exam Neurological exam: Present: alert, oriented X3 - Psychiatric Psychiatric exam: Present: normal affect, normal mood, other (He appears to be significantly demented versus encephalopathic) - Skin Skin exam: Present: warm Results - Labs CBC & BMP: 10/13/16 05:00 10/13/16 05:00
[2016-10-13] MEDS: DEXTROSE 5% NACL 0.45% 1,000 ML IV SCH (08:43)
[2016-10-13] MEDS: METOCLOPRAMIDE 10 MG/10 ML UDCUP PO SCH ×4 (08:49→21:45)
[2016-10-13] MEDS: BACITRACIN OINT 0.9 GM PACK TOP SCH (08:49)
[2016-10-13] MEDS: PIPERACILLIN/TAZOBACTAM 3,375 MG in SODIUM CHLORIDE 0.9% 100 ML IV SCH ×2 (08:50→21:42)
[2016-10-13] MEDS: ATORVASTATIN 10 MG TABLET PO SCH (08:50)
[2016-10-13] MEDS: POTASSIUM CHLORIDE 8 MEQ CAPSULE PO SCH (08:50)
[2016-10-13] MEDS: PANTOPRAZOLE 40 MG VIAL IV SCH ×2 (08:50→21:43)
[2016-10-13] MEDS: DESITIN 4OZ/NYSTATIN 15 GRAM MIXTURE PASTE TOP SCH ×2 (08:52→21:45)
--- NOTE | 2016-10-13 09:40 | Nephrology Progress Note ---
Nephrology - PN: Subj Interval history: The gentleman is sitting up resting in bed no acute changes. Tolerated his diet this morning. Urine output has been brisk approximately 200 cc/h. Serum creatinine is now 3.6. No other acute changes. Exam (PN)-Nephrology - Vital Signs Vital signs: Period Temp Pulse Resp BP Sys/Desai Pulse Ox Last 24 Hr 98.2 F-98.2 F 83-102 10-30 134-190/63-96 94-100 - General Appearance General appearance: well-developed, well-nourished EENT: ATNC Neck: supple Respiratory: clear Cardiology: no edema, regular rate, regular rhythm Gastrointestinal: normoactive bowel sounds, no tenderness Neurologic: alert and oriented x3 Psychiatric: mood/affect appropriate - Lab 10/13/16 05:00 10/13/16 05:00 Most recent lab results ABG pH 7.304 (7.35-7.45) L 10/07/16 15:50 ABG pCO2 23.1 MM HG (35-48) L 10/07/16 15:50 ABG pO2 109.0 MM HG (80-95) H 10/07/16 15:50 ABG HCO3 11.2 MMOL/L (20-26) L 10/07/16 15:50 ABG O2 Saturation 97.1 % (95-100) 10/07/16 15:50 Calcium 7.1 MG/DL (8.5-10.1) L 10/13/16 05:00 Phosphorus 3.1 MG/DL (2.5-4.9) 10/11/16 03:07 Magnesium 1.9 MG/DL (1.8-2.4) 10/12/16 04:23 Assessment and Plan (1) Acute renal failure Status: Acute Assessment and plan: Nonoliguric acute renal failure that she just continues to show signs of improvement. Creatinine is 3.6. Avoid nephrotoxic agents. Daily BMP. Continue to follow. Current Visit: Yes (2) Pneumonia Status: Acute Current Visit: Yes (3) Diabetes mellitus Status: Chronic Current Visit: Yes Qualifiers: Diabetes mellitus type: type 2 Chronic kidney disease stage: stage 3 ( moderate)
--- NOTE | 2016-10-13 10:53 | Hospitalist Progress Note ---
Assessment and Plan - Time spent with patient Time spent with patient: Greater than 30 minutes (1) Diabetic ketoacidosis Status: Acute Assessment and plan: Resolved. Current Visit: Yes (2) Sepsis Status: Acute Assessment and plan: Resolved. Continue antibiotics. Current Visit: Yes (3) Pneumonia Status: Acute Assessment and plan: Patient apparently exhibited signs of aspiration. Speech cleared for a pured diet. Current Visit: Yes (4) Acute renal failure Status: Acute Assessment and plan: Creatinine slowly improving. Appreciate nephrology assistance. Current Visit: Yes (5) Diabetes mellitus Status: Chronic Assessment and plan: Poorly controlled. HgA1c is 13. Current Visit: Yes Qualifiers: Diabetes mellitus type: type 2 Chronic kidney disease stage: stage 3 ( moderate) (6) Anemia Status: Acute Assessment and plan: GI was consulted for evaluation of positive heme occult. EGD revealed gastroparesis, gastritis. Hg is stable. Current Visit: Yes (7) Gastroparesis Status: Acute Assessment and plan: Continue medications. Current Visit: Yes Hospitalist: Subjective Interval history: No complaints, no overnight events. Patient is sitting upright, eating food. Exam - Constitutional Vitals: Period Temp Pulse Resp BP Sys/Desai Pulse Ox Last 24 Hr 98.2 F-98.2 F 83-102 10-30 134-190/63-96 94-100 General appearance: no acute distress - Head Head exam: Present: normocephalic - Eye Eye exam: Present: EOMI Pupils: Present: LULÚ - ENT ENT exam: Present: normal exam - Neck Neck exam: Present: normal inspection - Respiratory Respiratory exam: Present: clear to auscultation bilaterally. Absent: rhonchi, wheezes - Cardiovascular Cardiovascular exam: Present: regular rate and rhythm. Absent: gallop, rubs, systolic murmur - GI/Abdominal GI/Abdominal exam: Present: normal bowel sounds, soft. Absent: distended, firm , guarding, tenderness, rebound - Extremities Exam Extremities exam: Present: normal inspection. Absent: calf tenderness, edema Results - Labs CBC & BMP: 10/13/16 05:00 10/13/16 05:00 Lab Results: I have reviewed the past 24 hour labs
[2016-10-13] MEDS ORDERED: DEXTROSE 50% 25 GM/50 ML VIAL IV PRN (15:48)
[2016-10-13] MEDS ORDERED: GLUCAGON 1 MG VIAL IM PRN (15:48)
[2016-10-13] MEDS: INSULIN LISPRO 100 UNIT/ML SUBCUT SCH ×2 (17:15→22:13)
[2016-10-13] MEDS ORDERED: INSULIN LISPRO 100 UNIT/ML SUBCUT ONE (21:30)
[2016-10-14] MEDS: ALBUTEROL/IPRATROPIUM 3 ML NEB RESP TX SCH ×6 (00:16→19:21)
[2016-10-14] MEDS: INSULIN LISPRO 100 UNIT/ML SUBCUT SCH ×6 (00:54→20:39)
[2016-10-14] MEDS: DEXTROSE 10% IV SCH ×3 (03:20→14:58)
[2016-10-14] MEDS: SODIUM CHLORIDE IV SCH ×3 (03:20→14:58)
[2016-10-14 04:54] LABS: Basophils % 0.4 % (0.0-0.8); Eosinophils # 0.6 10*3/uL (0.0-0.87); Eosinophils % 6.1 % (0.00-10.9); Hematocrit 30.5 VOL% (42.0-52.0); Hemoglobin 9.7 GM/DL (14.0-18.0); Immature Granulocytes % 0.6 %; Immature Granulocytes Absolute 0.05 #; Lymphocytes # 2.1 10*3/uL (1.4-4.0); Lymphocytes % 23.3 % (21.2-54.2); Mean Corpuscular HGB Conc 31.8 GM/DL (32-36); Mean Corpuscular Hemoglobin 25 PG (27-34); Mean Corpuscular Volume 79.8 FL (87-102); Mean Platelet Volume 9.5 FL (9.6-12.0); Monocytes # 0.9 10*3/uL (0.11-0.8); Monocytes % 9.9 % (1.7-12.7); Neutrophils # 5.4 10*3/uL (1.4-7.4); Neutrophils % 59.7 % (38.7-73.9); Platelet Count 211 T/CUMM (130-400); Red Blood Count 3.82 MC/CUMM (3.8-5.5); Red Cell Distribution Width 19.4 % (9.3-17.3)
[2016-10-14 05:28] LABS: Calcium 7.9 MG/DL (8.5-10.1); Potassium 4.1 MMOL/L (3.5-5.1)
[2016-10-14] MEDS: LEVOTHYROXINE 100 MCG TABLET PO SCH ×2 (05:28→07:19)
[2016-10-14] MEDS: LINEZOLID INJ 600 MG in PREMIX 1 EACH IV SCH ×2 (05:47→17:04)
[2016-10-14] MEDS: METOCLOPRAMIDE 10 MG/10 ML UDCUP PO SCH ×4 (07:29→20:43)
[2016-10-14] MEDS: PIPERACILLIN/TAZOBACTAM 3,375 MG in SODIUM CHLORIDE 0.9% 100 ML IV SCH ×2 (08:46→20:42)
[2016-10-14] MEDS: ATORVASTATIN 10 MG TABLET PO SCH (08:48)
[2016-10-14] MEDS: POTASSIUM CHLORIDE 8 MEQ CAPSULE PO SCH (08:49)
[2016-10-14] MEDS: DESITIN 4OZ/NYSTATIN 15 GRAM MIXTURE PASTE TOP SCH ×2 (08:49→20:44)
[2016-10-14] MEDS: PANTOPRAZOLE 40 MG VIAL IV SCH ×2 (08:51→20:40)
--- NOTE | 2016-10-14 11:17 | Nephrology Progress Note ---
Nephrology - PN: Subj Interval history: Patient is sitting up in bed resting comfortably. No acute changes. Transferred from ICU on yesterday. Serum creatinine noted to be 3.8 which is up stable. Hemodynamics are stable. Exam (PN)-Nephrology - Vital Signs Vital signs: Period Temp Pulse Resp BP Sys/Desai Pulse Ox Last 24 Hr 98.1 F-98.8 F 84-94 16-24 124-186/64-86 94-100 - General Appearance General appearance: well-developed, well-nourished EENT: ATNC Neck: supple Respiratory: clear Cardiology: regular rate, regular rhythm Gastrointestinal: normoactive bowel sounds, no tenderness, no guarding Neurologic: alert and oriented x3 Musculoskeletal: no deformities, no clubbing Psychiatric: mood/affect appropriate - Lab 10/14/16 03:05 10/14/16 03:05 Most recent lab results ABG pH 7.304 (7.35-7.45) L 10/07/16 15:50 ABG pCO2 23.1 MM HG (35-48) L 10/07/16 15:50 ABG pO2 109.0 MM HG (80-95) H 10/07/16 15:50 ABG HCO3 11.2 MMOL/L (20-26) L 10/07/16 15:50 ABG O2 Saturation 97.1 % (95-100) 10/07/16 15:50 Calcium 7.9 MG/DL (8.5-10.1) L 10/14/16 03:05 Phosphorus 3.1 MG/DL (2.5-4.9) 10/11/16 03:07 Magnesium 1.9 MG/DL (1.8-2.4) 10/12/16 04:23 Assessment and Plan (1) Acute renal failure Status: Acute Assessment and plan: Nonoliguric acute renal failure. Creatinine is 3.8. Avoid nephrotoxic agents. Daily BMP. Continue to follow. Current Visit: Yes (2) Pneumonia Status: Acute Current Visit: Yes (3) Diabetes mellitus Status: Chronic Current Visit: Yes Qualifiers: Diabetes mellitus type: type 2 Chronic kidney disease stage: stage 3 ( moderate)
[2016-10-14] MEDS: BACITRACIN OINT 0.9 GM PACK TOP SCH (11:18)
--- NOTE | 2016-10-14 12:01 | Gastrointestinal Progress Note ---
Assessment and Plan (1) Acute posthemorrhagic anemia Status: Acute Assessment and plan: This patient has a history of erosive esophagitis which was LA class D (the most severe type) back when last scoped on 04/26/14. We will perform upper endoscopy to see if this is the same and place the patient on acid blocking medication on a permanent basis depending on how severe this appears or if this is more consistent with gastroparesis versus Alejandra-Norwood tear we will treat the patient as appropriate for those conditions. He is both hungry and awake I do not see a reason not to advance his diet to something more solid diet as he is teeth appear to work. This should help him ultimately clear his ketones. He needs to be n.p.o. after midnight for the above upper endoscopy. We will continue to watch his CBCs and transfuse him as needed. Protonix twice daily is advised as well. 10/12/16-- This patient likely has diabetic gastroparesis resulting in LA class D erosive esophagitis 20 cm, most certainly one of the main causes for his anemia, mild patchy gastritis and duodenitis also incidentally noted as well as a 5 cm hiatal hernia. This patient is at high risk for aspiration. 10/13/16--the patient appears to have rumination syndrome with mouthfuls of food spit out on his bedside tray. Nursing staff indicates that he is able to swallow approximately 80% of his food, he states that he has no chest pain whatsoever despite the appearance of 20 cm of LA class D erosive esophagitis. He also has quite severe diabetic gastroparesis and a large hiatal hernia adding to the picture. I feel he may have some aspiration pneumonia as a cause for an elevated white blood cell count and chronic cough. 10/14/16--Patient cleared for pured diet by speech pathology, patient does have some severe LA class D erosive esophagitis 20 cm with severe diabetic gastroparesis which he is tolerating well, with the help of Reglan. His hematocrit has been stable, currently at 30.5%. Current Visit: Yes (2) History of esophagitis Status: Acute Assessment and plan: Again this was seen in April 2014, at that time was LA class D. It is likely this patient has the same esophagitis present although gastroparesis and Alejandra -Norwood tear may also produce this level of anemia. We will look for evidence of gastritis and possibly rule out celiac sprue in addition if no clear bleeding source is identified. This states that he has had colonoscopy done sometime back in the [place], if we do not find an upper GI source we may consider obtaining a colonoscopy likely as an outpatient. We will continue to follow his hematocrit during his hospitalization. 10/12/16--the endoscopy done today demonstrates 20 cm of LA class D (the most severe) esophagitis likely the cause of the patient's blood loss. This is likely spurred on by his fairly significant gastroparesis which may be a result of his recent DKA episode. At least in the short-term he needs Reglan as an antinausea and promotility agent. He may be able to tolerate a renal diet--we will watch and see. 10/13/16--this is the cause of the 4+ guaiac positive stool and at least part of the reason (or the entire reason) for his anemia. 10/14/16--continue treatment with the help of Reglan elixir and Protonix twice daily. A prescription has been written and left in the front of the chart for these medications which he can take home. From my standpoint he can certainly leave at this time, his GI workup is complete. Current Visit: Yes (3) Diabetic gastroparesis Status: Acute Assessment and plan: Seen on today's upper endoscopy with a great amount of liquid and solid material in the stomach. This will need to be treated with some Reglan in order to decrease his reflux issues. Even though he does not feel classic pain in his chest this is likely the source of his anemia. 10/13/16--the patient has developed some diarrhea which I suspect is partially due to passage of blood, partially due to the Reglan we have given him but we need to rule out C. difficile and so I am sending the stool off for this latter toxin check. Nursing staff does not feel that he needs a BMS. He is back on regular food--2200-calorie "consistent carb"/renal diet. 10/14/16--The patient is getting Reglan elixir for this, 10 mL of the 1 mg/mL dosing 4 times daily and this should be helping out with his underlying fluid/ food retention. Again, a prescription has been written and left in the front of the chart for use at home. Thank you for this interesting consult will sign off at this time. Current Visit: Yes (4) Rumination disorder Status: Acute Assessment and plan: This patient has a chewing and spitting of on swallow food versus food that has been swallowed and regurgitated up then spit out at the bedside. This is tantamount to perhaps 20% or 30% of his diet. He can be seen on removal of his tray and was noted by myself and the nursing staff. Clearly the patient is able to swallow his pills and most of his food. With his dementia this may be more difficult to deal with and may be tied in with his severe esophagitis/ gastroparesis. One can hope that it would go away spontaneously as these problems are addressed more completely. The esophagitis has been going on for many years as this was seen on previous endoscopy done by Dr. Jacob back in 2013. The patient's ammonia level was checked earlier in the hospital stay on and found to be normal at 25--he will not benefit from lactulose. 10/14/16--treatment of rumination disorder is beyond the scope of his current hospital stay. This is not causing him major distress in my opinion is unlikely to benefit from anything but long-term psychological intervention. He can certainly continue regurgitating and spitting a small percentage his food in the future. This will be a long-term problem for him. Current Visit: Yes Gastroenterology - PN: Subj Interval history: This patient has no new complaints, sitting up in bed, comfortable, needs to eat in an upright position. Exam (Progress Note) - Constitutional Vitals: Period Temp Pulse Resp BP Sys/Desai Pulse Ox Last 24 Hr 98.1 F-98.8 F 84-94 16-24 124-186/64-86 94-100 General appearance: no acute distress - Head Head exam: Present: normocephalic - Eye Eye exam: Present: EOMI - Respiratory Respiratory exam: Present: clear to auscultation bilaterally - Cardiovascular Cardiovascular exam: Present: regular rate and rhythm - GI/Abdominal GI/Abdominal exam: Present: normal bowel sounds, soft. Absent: guarding, tenderness, rebound - Extremities Exam Extremities exam: Absent: edema - Neurological Exam Neurological exam: Present: alert, altered (Confused) - Psychiatric Psychiatric exam: Present: normal affect, normal mood - Skin Skin exam: Present: warm Results - Labs CBC & BMP: 03/26/17 03:05 10/14/16 03:05
--- NOTE | 2016-10-14 12:40 | Hospitalist Progress Note ---
Assessment and Plan - Time spent with patient Time spent with patient: Greater than 30 minutes (1) Diabetic ketoacidosis Status: Acute Assessment and plan: Resolved. Current Visit: Yes (2) Sepsis Status: Acute Assessment and plan: Resolved. Continue antibiotics. Current Visit: Yes (3) Pneumonia Status: Acute Assessment and plan: Patient apparently exhibited signs of aspiration. Speech cleared for a pured diet. Current Visit: Yes (4) Acute renal failure Status: Acute Assessment and plan: Creatinine slowly improving. Appreciate nephrology assistance. Current Visit: Yes (5) Diabetes mellitus Status: Chronic Assessment and plan: Poorly controlled. HgA1c is 13. Current Visit: Yes Qualifiers: Diabetes mellitus type: type 2 Chronic kidney disease stage: stage 3 ( moderate) (6) Anemia Status: Acute Assessment and plan: GI was consulted for evaluation of positive heme occult. EGD revealed gastroparesis, gastritis. Hg is stable. Current Visit: Yes (7) Gastroparesis Status: Acute Assessment and plan: Continue medications. Current Visit: Yes Hospitalist: Subjective Interval history: Patient has no complaints this morning. No overnight events. Exam - Constitutional Vitals: Period Temp Pulse Resp BP Sys/Desai Pulse Ox Last 24 Hr 98.3 F-98.8 F 84-94 16-24 124-186/64-86 94-100 General appearance: no acute distress - Head Head exam: Present: normocephalic, atraumatic - Eye Eye exam: Present: EOMI Pupils: Present: LULÚ - ENT ENT exam: Present: normal exam - Neck Neck exam: Present: normal inspection - Respiratory Respiratory exam: Present: clear to auscultation bilaterally. Absent: rhonchi, wheezes - Cardiovascular Cardiovascular exam: Present: regular rate and rhythm. Absent: gallop, rubs, systolic murmur - GI/Abdominal GI/Abdominal exam: Present: normal bowel sounds, soft. Absent: distended, firm , guarding, tenderness, rebound - Extremities Exam Extremities exam: Present: normal inspection. Absent: calf tenderness, edema Results - Labs CBC & BMP: 10/14/16 03:05 10/14/16 03:05 Lab Results: I have reviewed the past 24 hour labs
[2016-10-15] MEDS: ALBUTEROL/IPRATROPIUM 3 ML NEB RESP TX SCH ×7 (00:06→23:20)
[2016-10-15] MEDS: INSULIN LISPRO 100 UNIT/ML SUBCUT SCH ×6 (01:33→20:41)
[2016-10-15] MEDS: SODIUM CHLORIDE IV SCH ×4 (02:26→15:49)
[2016-10-15] MEDS: DEXTROSE 10% IV SCH ×4 (02:26→15:49)
[2016-10-15] MEDS: LINEZOLID INJ 600 MG in PREMIX 1 EACH IV SCH ×2 (05:18→18:08)
[2016-10-15] MEDS: METOCLOPRAMIDE 10 MG/10 ML UDCUP PO SCH ×4 (06:38→20:40)
[2016-10-15] MEDS: LEVOTHYROXINE 100 MCG TABLET PO SCH (06:38)
[2016-10-15 06:39] LABS: Basophils % 0.3 % (0.0-0.8); Eosinophils # 0.4 10*3/uL (0.0-0.87); Eosinophils % 5.6 % (0.00-10.9); Hematocrit 26.4 VOL% (42.0-52.0); Hemoglobin 8.3 GM/DL (14.0-18.0); Immature Granulocytes % 0.4 %; Immature Granulocytes Absolute 0.03 #; Lymphocytes # 1.5 10*3/uL (1.4-4.0); Lymphocytes % 19.6 % (21.2-54.2); Mean Corpuscular HGB Conc 31.4 GM/DL (32-36); Mean Corpuscular Hemoglobin 26 PG (27-34); Mean Corpuscular Volume 81.7 FL (87-102); Mean Platelet Volume 9.1 FL (9.6-12.0); Monocytes # 0.9 10*3/uL (0.11-0.8); Monocytes % 11.5 % (1.7-12.7); Neutrophils # 4.8 10*3/uL (1.4-7.4); Neutrophils % 62.6 % (38.7-73.9); Platelet Count 152 T/CUMM (130-400); Red Blood Count 3.23 MC/CUMM (3.8-5.5); Red Cell Distribution Width 19.4 % (9.3-17.3); White Blood Count 7.7 T/CUMM (4-12)
[2016-10-15 07:05] LABS: Calcium 7.5 MG/DL (8.5-10.1); Osmolality,Calculated 287.3 MOS/KG (273-304); Potassium 4.3 MMOL/L (3.5-5.1)
[2016-10-15 07:08] LABS: Macrocytosis 1+
[2016-10-15 07:09] LABS: Acanthocytes Few; Burr Cells 1+
--- NOTE | 2016-10-15 08:57 | XRay Report ---
XR chest 1V portable Indication: Shortness of breath. Chest one view: Comparison 10/10/2016. Overall, lung bases are slightly better aerated than previous with decrease atelectasis. No new infiltrates are shown. There still some persistent interstitial prominence throughout. Borderline cardiomegaly is stable. Impression: Minimal improved aeration of the lung bases. Otherwise no change. PROCEDURE INTERPRETED AT [facility] DEPARTMENT OF RADIOLOGY Final Report Signed by: Jesse Arroyo M.D.
[2016-10-15] MEDS: POTASSIUM CHLORIDE 8 MEQ CAPSULE PO SCH (09:24)
[2016-10-15] MEDS: PIPERACILLIN/TAZOBACTAM 3,375 MG in SODIUM CHLORIDE 0.9% 100 ML IV SCH ×3 (09:24→18:08)
[2016-10-15] MEDS: PANTOPRAZOLE 40 MG VIAL IV SCH ×2 (09:24→20:41)
[2016-10-15] MEDS: DESITIN 4OZ/NYSTATIN 15 GRAM MIXTURE PASTE TOP SCH ×2 (09:25→20:45)
[2016-10-15] MEDS: BACITRACIN OINT 0.9 GM PACK TOP SCH (09:25)
[2016-10-15] MEDS: ATORVASTATIN 10 MG TABLET PO SCH (09:25)
--- NOTE | 2016-10-15 11:20 | Pathology Report from [facility] ---
ACCESSION # : [id number] PATIENT NAME : Truman Ordoñez ORDERING DR : Miller Alanis MD CLINICAL HX: Esophagus, anemia POST-OP DX: Same SPECIMEN INFO: ALYSSIA GROSS DESCRIPTION: The specimen is received in formalin labeled with the patient 's name Truman Ordoñez consists of a 0.7 x 0.4 cm aggregate of landa tissue. Submitted in one cassette. DIAGNOSIS FOR TRUMAN ORDOÑEZ: ALYSSIA BIOPSIES: Chronic gastritis. H.pylori not seen on special stain. SERVICE DATE: 10/12/2016 REPORT DATE: 10/15/2016 PATHOLOGIST: Guerrero Oconnor M.D. [facility]
--- NOTE | 2016-10-15 14:04 | Hospitalist Progress Note ---
Assessment and Plan - Time spent with patient Time spent with patient: Greater than 30 minutes (1) Diabetic ketoacidosis Status: Acute Assessment and plan: Resolved. Current Visit: Yes (2) Sepsis Status: Acute Assessment and plan: Resolved. Continue antibiotics. Current Visit: Yes (3) Pneumonia Status: Acute Assessment and plan: Patient apparently exhibited signs of aspiration. Speech cleared for a pured diet. Current Visit: Yes (4) Acute renal failure Status: Acute Assessment and plan: Creatinine stable at 3.8. Appreciate nephrology assistance. Current Visit: Yes (5) Diabetes mellitus Status: Chronic Assessment and plan: Poorly controlled. HgA1c is 13. Current Visit: Yes Qualifiers: Diabetes mellitus type: type 2 Chronic kidney disease stage: stage 3 ( moderate) (6) Anemia Status: Acute Assessment and plan: GI was consulted for evaluation of positive heme occult. EGD revealed gastroparesis, gastritis. Hg is stable. Current Visit: Yes (7) Gastroparesis Status: Acute Assessment and plan: Continue medications. Current Visit: Yes Hospitalist: Subjective Interval history: No complaints. T-max was 99.3. Patient is sitting upright and eating food in very good spirits. Exam - Constitutional Vitals: Period Temp Pulse Resp BP Sys/Desai Pulse Ox Last 24 Hr 98.8 F-99.3 F 78-93 16-24 141-178/65-83 94-99 General appearance: no acute distress - Head Head exam: Present: normocephalic, atraumatic - Eye Eye exam: Present: EOMI Pupils: Present: LULÚ - ENT ENT exam: Present: normal exam - Neck Neck exam: Present: normal inspection - Respiratory Respiratory exam: Present: other (Coarse breath sounds). Absent: rhonchi, wheezes - Cardiovascular Cardiovascular exam: Present: regular rate and rhythm. Absent: gallop, rubs, systolic murmur - GI/Abdominal GI/Abdominal exam: Present: normal bowel sounds, soft. Absent: distended, firm , guarding, tenderness, rebound - Extremities Exam Extremities exam: Present: normal inspection. Absent: calf tenderness, edema Results - Labs CBC & BMP: 10/15/16 04:35 10/15/16 04:35 Lab Results: I have reviewed the past 24 hour labs
--- NOTE | 2016-10-15 21:20 | Nephrology Progress Note ---
Nephrology - PN: Subj Interval history: He is awake and alert. He denies shortness of breath. Exam (PN)-Nephrology - Vital Signs Vital signs: Period Temp Pulse Resp BP Sys/Desai Pulse Ox Last 24 Hr 98.8 F-100.1 F 78-93 18-24 132-178/65-81 94-99 Exam: ENT: Normal Cardiovascular: Regular rate and rhythm. No murmur rub or gallop Lungs: Clear Extremities: No edema - Lab 10/15/16 04:35 10/15/16 04:35 Most recent lab results ABG pH 7.304 (7.35-7.45) L 10/07/16 15:50 ABG pCO2 23.1 MM HG (35-48) L 10/07/16 15:50 ABG pO2 109.0 MM HG (80-95) H 10/07/16 15:50 ABG HCO3 11.2 MMOL/L (20-26) L 10/07/16 15:50 ABG O2 Saturation 97.1 % (95-100) 10/07/16 15:50 Calcium 7.5 MG/DL (8.5-10.1) L 10/15/16 04:35 Phosphorus 3.1 MG/DL (2.5-4.9) 10/11/16 03:07 Magnesium 1.9 MG/DL (1.8-2.4) 10/12/16 04:23 Assessment and Plan (1) Acute renal failure Status: Acute Assessment and plan: 61-year-old man admitted with: * DKA. Resolved * Pneumonia. Continue current antibiotics * Chronic renal failure stage III. Baseline creatinine 1.8 -2.0 * Acute renal failure. Creatinine stable. Current Visit: Yes (2) Altered mental status Status: Acute Current Visit: Yes (3) Diabetes mellitus Status: Chronic Current Visit: Yes Qualifiers: Diabetes mellitus type: type 2 Chronic kidney disease stage: stage 3 ( moderate) (4) Diabetic ketoacidosis Status: Acute Current Visit: Yes (5) Lactic acidosis Status: Acute Current Visit: Yes (6) Pneumonia Status: Acute Current Visit: Yes
[2016-10-16] MEDS: INSULIN LISPRO 100 UNIT/ML SUBCUT SCH ×8 (01:02→21:15)
[2016-10-16] MEDS: PIPERACILLIN/TAZOBACTAM 3,375 MG in SODIUM CHLORIDE 0.9% 100 ML IV SCH ×3 (03:06→17:25)
[2016-10-16] MEDS: ALBUTEROL/IPRATROPIUM 3 ML NEB RESP TX SCH ×6 (03:40→23:00)
[2016-10-16 06:57] LABS: Basophils % 0.2 % (0.0-0.8); Eosinophils # 0.4 10*3/uL (0.0-0.87); Eosinophils % 5.9 % (0.00-10.9); Hemoglobin 8.2 GM/DL (14.0-18.0); Immature Granulocytes % 0.6 %; Immature Granulocytes Absolute 0.04 #; Lymphocytes # 1.5 10*3/uL (1.4-4.0); Lymphocytes % 22.1 % (21.2-54.2); Mean Corpuscular HGB Conc 31.5 GM/DL (32-36); Mean Corpuscular Hemoglobin 26 PG (27-34); Mean Corpuscular Volume 81.3 FL (87-102); Mean Platelet Volume 9.4 FL (9.6-12.0); Monocytes # 0.7 10*3/uL (0.11-0.8); Neutrophils % 60.2 % (38.7-73.9); Platelet Count 150 T/CUMM (130-400); Red Cell Distribution Width 19.4 % (9.3-17.3); White Blood Count 6.6 T/CUMM (4-12)
[2016-10-16 07:24] LABS: Burr Cells Slight; Eosinophils 4 % (0-10); Hypochromasia 1+; Lymphocytes 16 % (20-55); Macrocytosis Slight; Ovalocytes Slight; Platelet Estimate Normal; Segmented Neutrophils 72 % (50-85); Total Cells Counted 100
[2016-10-16 07:30] LABS: Calcium 7.6 MG/DL (8.5-10.1); Osmolality,Calculated 290.8 MOS/KG (273-304); Potassium 4.6 MMOL/L (3.5-5.1)
[2016-10-16] MEDS: LEVOTHYROXINE 100 MCG TABLET PO SCH (07:37)
[2016-10-16] MEDS: LINEZOLID INJ 600 MG in PREMIX 1 EACH IV SCH ×2 (07:37→17:26)
[2016-10-16] MEDS: METOCLOPRAMIDE 10 MG/10 ML UDCUP PO SCH ×4 (07:38→21:22)
[2016-10-16] MEDS: SODIUM CHLORIDE IV SCH ×2 (07:38→16:34)
[2016-10-16] MEDS: DEXTROSE 10% IV SCH ×2 (07:38→16:34)
[2016-10-16] MEDS: BACITRACIN OINT 0.9 GM PACK TOP SCH (08:53)
[2016-10-16] MEDS: PANTOPRAZOLE 40 MG VIAL IV SCH ×2 (08:53→21:16)
[2016-10-16] MEDS: ATORVASTATIN 10 MG TABLET PO SCH (08:53)
[2016-10-16] MEDS: POTASSIUM CHLORIDE 8 MEQ CAPSULE PO SCH (08:53)
[2016-10-16] MEDS: DESITIN 4OZ/NYSTATIN 15 GRAM MIXTURE PASTE TOP SCH ×2 (08:55→21:17)
--- NOTE | 2016-10-16 10:21 | XRay Report ---
XR chest 1V portable Indication: Fever. Chest one view: Comparison yesterday. Cardiomegaly, scattered calcified granulomata and interstitial prominence of the lungs is unchanged. No new infiltrates are shown. Impression: No change. PROCEDURE INTERPRETED AT [facility] DEPARTMENT OF RADIOLOGY Final Report Signed by: Jesse Arroyo M.D.
--- NOTE | 2016-10-16 10:25 | Hospitalist Progress Note ---
Assessment and Plan - Time spent with patient Time spent with patient: Greater than 30 minutes (1) Diabetes mellitus Status: Chronic Assessment and plan: Poorly controlled. HgA1c is 13. Patient will no longer require oral medications and will require insulin. Start the patient on detemir 15 units at bedtime and 5 units with meals 3 times daily. Sliding scale in place. Current Visit: Yes Qualifiers: Diabetes mellitus type: type 2 Chronic kidney disease stage: stage 3 ( moderate) (2) Sepsis Status: Acute Assessment and plan: Resolved. Continue antibiotics. Current Visit: Yes (3) Pneumonia Status: Acute Assessment and plan: Patient apparently exhibited signs of aspiration. Speech cleared for a pured diet. Current Visit: Yes (4) Acute renal failure Status: Acute Assessment and plan: Creatinine stable at 3.8. Appreciate nephrology assistance. Current Visit: Yes (5) Anemia Status: Acute Assessment and plan: GI was consulted for evaluation of positive heme occult. EGD revealed gastroparesis, gastritis. Hg is stable. Current Visit: Yes (6) Gastroparesis Status: Acute Assessment and plan: Continue medications. Current Visit: Yes (7) Acute diarrhea Status: Acute Assessment and plan: We will obtain stool studies. Current Visit: Yes Hospitalist: Subjective Interval history: No complaints. Recent T-max 100.1. Patient complains of having terrible diarrhea. Otherwise he is stable sitting up in bed and eating. Exam - Constitutional Vitals: Period Temp Pulse Resp BP Sys/Desai Pulse Ox Last 24 Hr 98.4 F-100.1 F 78-90 18-22 132-160/66-72 96-100 General appearance: no acute distress - Head Head exam: Present: normocephalic, atraumatic - Eye Eye exam: Present: EOMI Pupils: Present: LULÚ - ENT ENT exam: Present: normal exam - Neck Neck exam: Present: normal inspection - Respiratory Respiratory exam: Present: clear to auscultation bilaterally. Absent: rhonchi, wheezes - Cardiovascular Cardiovascular exam: Present: regular rate and rhythm. Absent: gallop, rubs, systolic murmur - GI/Abdominal GI/Abdominal exam: Present: normal bowel sounds, soft. Absent: distended, firm , guarding, tenderness, rebound - Extremities Exam Extremities exam: Present: normal inspection. Absent: calf tenderness, edema Results - Labs CBC & BMP: 10/16/16 04:43 10/16/16 04:43 Lab Results: I have reviewed the past 24 hour labs
--- NOTE | 2016-10-16 14:20 | Nephrology Progress Note ---
Nephrology - PN: Subj Interval history: No shortness of breath. Reports diarrhea. Exam (PN)-Nephrology - Vital Signs Vital signs: Period Temp Pulse Resp BP Sys/Desai Pulse Ox Last 24 Hr 98.4 F-100.1 F 78-90 15-22 132-160/66-76 95-100 Exam: Cardiovascular: Regular rate and rhythm. No murmur Lungs: Clear Extremities: No edema - Lab 10/16/16 04:43 10/16/16 04:43 Most recent lab results ABG pH 7.304 (7.35-7.45) L 10/07/16 15:50 ABG pCO2 23.1 MM HG (35-48) L 10/07/16 15:50 ABG pO2 109.0 MM HG (80-95) H 10/07/16 15:50 ABG HCO3 11.2 MMOL/L (20-26) L 10/07/16 15:50 ABG O2 Saturation 97.1 % (95-100) 10/07/16 15:50 Calcium 7.6 MG/DL (8.5-10.1) L 10/16/16 04:43 Phosphorus 3.1 MG/DL (2.5-4.9) 10/11/16 03:07 Magnesium 1.9 MG/DL (1.8-2.4) 10/12/16 04:23 Assessment and Plan (1) Acute renal failure Status: Acute Assessment and plan: 61-year-old man admitted with: * DKA. Resolved * Pneumonia. Continue current antibiotics * Chronic renal failure stage III. Baseline creatinine 1.8 -2.0 * Acute renal failure. Creatinine slightly improved. Urine output adequate Current Visit: Yes (2) Altered mental status Status: Acute Current Visit: Yes (3) Diabetes mellitus Status: Chronic Current Visit: Yes Qualifiers: Diabetes mellitus type: type 2 Chronic kidney disease stage: stage 3 ( moderate) (4) Diabetic ketoacidosis Status: Acute Current Visit: Yes (5) Lactic acidosis Status: Acute Current Visit: Yes (6) Pneumonia Status: Acute Current Visit: Yes
[2016-10-16] MEDS ORDERED: INSULIN GLARGINE 100 UNIT/ML SUBCUT SCH (21:00)
[2016-10-17] MEDS: INSULIN LISPRO 100 UNIT/ML SUBCUT SCH ×4 (01:21→08:24)
[2016-10-17] MEDS: PIPERACILLIN/TAZOBACTAM 3,375 MG in SODIUM CHLORIDE 0.9% 100 ML IV SCH (01:26)
[2016-10-17] MEDS: ALBUTEROL/IPRATROPIUM 3 ML NEB RESP TX SCH ×3 (03:00→11:10)
[2016-10-17] MEDS: SODIUM CHLORIDE IV SCH ×2 (06:15)
[2016-10-17] MEDS: DEXTROSE 10% IV SCH ×2 (06:15)
[2016-10-17] MEDS: LINEZOLID INJ 600 MG in PREMIX 1 EACH IV SCH (06:19)
[2016-10-17] MEDS: LEVOTHYROXINE 100 MCG TABLET PO SCH (06:30)
[2016-10-17 07:00] LABS: Basophils % 0.3 % (0.0-0.8); Eosinophils # 0.3 10*3/uL (0.0-0.87); Eosinophils % 4.6 % (0.00-10.9); Hematocrit 26.4 VOL% (42.0-52.0); Hemoglobin 8.3 GM/DL (14.0-18.0); Immature Granulocytes % 0.5 %; Immature Granulocytes Absolute 0.03 #; Lymphocytes # 1.1 10*3/uL (1.4-4.0); Lymphocytes % 18.1 % (21.2-54.2); Mean Corpuscular HGB Conc 31.4 GM/DL (32-36); Mean Corpuscular Hemoglobin 26 PG (27-34); Mean Platelet Volume 8.7 FL (9.6-12.0); Monocytes # 0.5 10*3/uL (0.11-0.8); Monocytes % 7.7 % (1.7-12.7); Neutrophils # 4.3 10*3/uL (1.4-7.4); Neutrophils % 68.8 % (38.7-73.9); Platelet Count 125 T/CUMM (130-400); Red Blood Count 3.22 MC/CUMM (3.8-5.5); Red Cell Distribution Width 19.3 % (9.3-17.3); White Blood Count 6.2 T/CUMM (4-12)
[2016-10-17 07:20] LABS: Elliptocytes Few; Eosinophils 2 % (0-10); Hypochromasia 1+; Lymphocytes 17 % (20-55); Platelet Estimate Normal; Segmented Neutrophils 75 % (50-85); Total Cells Counted 100
[2016-10-17 07:27] LABS: Calcium 7.7 MG/DL (8.5-10.1); Osmolality,Calculated 288.8 MOS/KG (273-304); Potassium 4.5 MMOL/L (3.5-5.1)
[2016-10-17] MEDS: POTASSIUM CHLORIDE 8 MEQ CAPSULE PO SCH (08:16)
[2016-10-17] MEDS: METOCLOPRAMIDE 10 MG/10 ML UDCUP PO SCH (08:16)
[2016-10-17] MEDS: PANTOPRAZOLE 40 MG VIAL IV SCH (08:17)
[2016-10-17] MEDS: ATORVASTATIN 10 MG TABLET PO SCH (08:17)
[2016-10-17] MEDS: BACITRACIN OINT 0.9 GM PACK TOP SCH (08:18)
[2016-10-17] MEDS: DESITIN 4OZ/NYSTATIN 15 GRAM MIXTURE PASTE TOP SCH (08:28)
--- NOTE | 2016-10-17 09:29 | Hospitalist Progress Note ---
Assessment and Plan (1) Diarrhea Status: Acute Assessment and plan: Patient has diarrhea but negative for C. difficile. He has been on antibiotics for almost 10 days without any apparent source of infection I will be seeing antibiotics and watch Current Visit: Yes (2) Metabolic acidosis Status: Acute Assessment and plan: Likely due to kidney disease will add sodium bicarbonate by mouth Current Visit: Yes (3) Acute renal failure Status: Acute Assessment and plan: Patient has chronic kidney disease and presented with acute in injury over the hyperglycemia and likely volume depletion. He is partially recovered continue to monitor and also followed by renal Current Visit: Yes (4) Anemia Status: Acute Assessment and plan: Patient has anemia positive stool Hemoccult followed by GI. Patient had EGD this admission and noted to have diabetic gastroparesis and erosive esophagitis. He is on PPI and Reglan. Current Visit: Yes (5) Diabetic ketoacidosis Status: Acute Assessment and plan: We will continue to monitor blood sugar. Patient has been on 5 units lispro insulin with meals and Lantus insulin 15 units at night Current Visit: Yes Hospitalist: Subjective Interval history: Mr. Fraire is a 61 year old -[place] male with a history significant for hypertension, seizures, [place], CVA, renal failure, diabetes mellitus admitted on 10/07/16 with the altered mental status and was noted to have hyperglycemia with blood sugar more than 1400. He had not been on glucose insulin and insulin regimenhere. He was also found to have acute kidney injury. He has been on Zyvox and Zosyn. He was noted to have a low-grade fever temperature 100.1 on 10/15/2016 since then his temperature is less than 100. He has reported diarrhea and checked for C. difficile and was a noted negative. Patient has no acute subjective symptoms otherwise Exam - Constitutional Vitals: Period Temp Pulse Resp BP Sys/Desai Pulse Ox Last 24 Hr 98.1 F-99.5 F 78-94 14-20 127-153/60-76 95-99 General appearance: no acute distress - Respiratory Respiratory exam: Present: clear to auscultation bilaterally. Absent: rales, rhonchi - Cardiovascular Cardiovascular exam: Present: regular rate and rhythm. Absent: tachycardia - GI/Abdominal GI/Abdominal exam: Present: normal bowel sounds, soft. Absent: tenderness - Extremities Exam Extremities exam: Present: normal inspection. Absent: edema - Neurological Exam Neurological exam: Present: alert Results - Labs CBC & BMP: 10/17/16 06:40 10/17/16 06:40 Lab Results: I have reviewed the past 24 hour labs
[2016-10-17 10:18] VITALS: BP 141/75
--- NOTE | 2016-10-17 10:30 | Discharge Summary ---
<Kp Cifuentes - Last Filed: 10/17/16 12:30> Hospital Course - Hospital Course Hospital Course: Mr. Fraire is a 61 year old -[place] male with a history significant for hypertension, seizures, [place], CVA, renal failure, diabetes mellitus who presented to the ED on 10/07 for evaluation of altered mental status. The patient had been at home with his daughter when he passed out and EMS was called. On arrival to ed, ptt was found to be in DKA with a blood glucose of 1415. The patient was admitted to the hospitalist service and placed in the ICU for treatment. An insulin infusion was started to manage DKA. Pt was also found to be anemic, in acute renal failure (bun/crea 44/6) hyponatremic (117)with an elevated WBC of 19.3. Initial CXR (10/07) showed only cardiomegaly but f/u on 10/08 showed progressive infiltrates. Pt. was started on antibiotics for pneumonia. Nephrology was consulted to evaluate acute renal failure which was presumed to be secondary to DKA. GI saw patient for anemia and a EGD with cold biopsy was performed. This revealed diabetic gastroporesis. Pt. was instructed to follow up in 1-2 weeks and PPI and Reglan was added to therapy. During the hospital course, the patient fall and had laceration to L ankle. This was repaired by suturing which patient tolerated well. Altered mental status issue has been resolved. Pt. alert and oriented. DKA has resolved. Blood sugars controlled with log and lantus. Renal function returned to baseline. Pt. was on antibiotics for pneumonia. Pt is now stable for transfer to swing bed facility today. Discharge Plan - Discharge Data Disposition: Disch/Xfer-Ip Rehab Fac - Discharge Medications New Pantoprazole Tab [Protonix Tab] 40 mg PO BID #60 tablet Insulin Glargine [Lantus] 15 unit SUBCUT BEDTIME unit Insulin Lispro [HumaLOG] 5 unit SUBCUT TID W/MEALS unit Metoclopramide Liquid [Reglan Liquid] 10 mg PO ACHS Skin Healing Oint (Aquaphor) [Aquaphor] 1 applic TOP PRN PRN #0 applic PRN Reason: Dry Skin Sodium Bicarb Tab 650 mg PO BID tablet Continue Atorvastatin [Lipitor] 10 mg PO DAILY Levothyroxine Tab [Synthroid Tab] 100 mcg PO DAILY Discontinued Potassium Chloride 8 meq PO DAILY Sitagliptin Phos/Metformin HCl [Janumet Xr 50-1,000 mg Tablet] 1 each PO BID W/MEALS metOLazone [Metolazone] 0.5 mg PO DAILY - Follow Up or Referral - Forms/Instructions Exam - Constitutional Vitals: Period Temp Pulse Resp BP Sys/Desai Pulse Ox Last 24 Hr 98.1 F-99.5 F 78-97 14-20 127-153/60-76 95-99 Discharge Results Procedures and tests throughout hospitalization: Pending Orders 10/10/16 06:02 Occult Blood, Stool Routine 10/16/16 05:00 Stool Culture Routine 10/16/16 07:42 Urinalysis Routine 10/18/16 04:00 BMP [Basic Metabolic Panel] IN AM CBC [Comp Blood Count Auto Diff] IN AM Labs on day of discharge: Labs from last 24 hours 10/17/16 10/17/16 10/17/16 08:23 06:40 06:40 WBC 6.2 RBC 3.22 L Hgb 8.3 L Hct 26.4 L MCV 82.0 L MCH 26 L MCHC 31.4 L RDW 19.3 H Plt Count 125 L MPV 8.7 L Neut % (Auto) 68.8 Lymph % (Auto) 18.1 L [place] % (Auto) 7.7 Eos % (Auto) 4.6 Baso % (Auto) 0.3 Neut # (Auto) 4.3 Lymph # (Auto) 1.1 L [place] # (Auto) 0.5 Eos # (Auto) 0.3 Baso # (Auto) 0.0 Total Counted 100 Immature Gran % 0.5 Nucleated RBC % 0.0 Immature Gran # 0.03 Segmented Neutrophils 75 Lymphocytes 17 L Monocytes 6 Eosinophils 2 Nucleated RBCs # 0.00 Platelet Estimate Normal Hypochromasia 1+ Elliptocytes Few Morphology Comment Sodium 144 Potassium 4.5 Chloride 113 H Carbon Dioxide 18 L Anion Gap 17.5 H BUN 18 Creatinine 3.60 H GFR Calculation 27 BUN/Creatinine Ratio 5.00 L Glucose 125 H POC Glucose 173 H Calculated Osmolality 288.8 Calcium 7.7 L 10/17/16 10/17/16 10/16/16 04:56 00:56 20:01 WBC RBC Hgb Hct MCV MCH MCHC RDW Plt Count MPV Neut % (Auto) Lymph % (Auto) [place] % (Auto) Eos % (Auto) Baso % (Auto) Neut # (Auto) Lymph # (Auto) [place] # (Auto) Eos # (Auto) Baso # (Auto) Total Counted Immature Gran % Nucleated RBC % Immature Gran # Segmented Neutrophils Lymphocytes Monocytes Eosinophils Nucleated RBCs # Platelet Estimate Hypochromasia Elliptocytes Morphology Comment Sodium Potassium Chloride Carbon Dioxide Anion Gap BUN Creatinine GFR Calculation BUN/Creatinine Ratio Glucose POC Glucose 96 170 H 236 H Calculated Osmolality Calcium 10/16/16 10/16/16 15:36 10:48 WBC RBC Hgb Hct MCV MCH MCHC RDW Plt Count MPV Neut % (Auto) Lymph % (Auto) [place] % (Auto) Eos % (Auto) Baso % (Auto) Neut # (Auto) Lymph # (Auto) [place] # (Auto) Eos # (Auto) Baso # (Auto) Total Counted Immature Gran % Nucleated RBC % Immature Gran # Segmented Neutrophils Lymphocytes Monocytes Eosinophils Nucleated RBCs # Platelet Estimate Hypochromasia Elliptocytes Morphology Comment Sodium Potassium Chloride Carbon Dioxide Anion Gap BUN Creatinine GFR Calculation BUN/Creatinine Ratio Glucose POC Glucose 163 H 225 H Calculated Osmolality Calcium DS: Provider Date of admission: 10/07/16 16:02 Primary care physician: . No PCP Attending physician on admission: Mago Rodriguez MD Consults: 10/07/16 16:41 Consult to Diabetes [place], Educator [CONS] Routine Reason for Numerical Control Tool Programmer: Diabetes Education Initial Insulin Education Consult Comment: INSULIN EDUCATION 10/07/16 18:50 Consult to Pharmacy [CONS] Routine Reason for Pharmacy Consult: Adjust Meds Renal Funct 10/08/16 08:11 Consult to Physician [CONS] Routine Comment: JANI Consulting Provider: Francisco Walsh Consulting Provider Notified: Yes Consult to Specialist Group: Nephrology When should Consulting Provider be notified: Now Person Notified: WILBER Date Notified: 10/08/16 Time Notified: 09:00 10/11/16 16:55 Consult to Anesthesiology [CONS] Routine Consulting Provider: Reason for Anesthesiology: Pre-op Clearance 10/15/16 08:18 Consult to [facility], Educator [CONS] Routine Reason for Numerical Control Tool Programmer: Initial Insulin Education Consult Comment: please work with patient on giving self insulin injections 10/15/16 08:19 Consult to Case Mgmt/Social Srvs [CONS] Routine Reason for Case Mgmt/Social Srvs: Home Health Swingbed/SNF/Half-Way Discharge Planning Consult Comment: He can go home with HH if he can give himself injections, if not swing bed 10/15/16 14:09 Consult to Physical Therapy [CONS] Routine Reason for Physical Therapy: Weakness Discharging clinician: Kp Cifuentes NP <Marlon Ayers - Last Filed: 10/18/16 17:40> Hospital Course - Hospital Course Hospital Course: Patient was discharged and med reconciliation was done Diagnosis - Discharge Diagnosis (1) Diarrhea Status: Acute (2) Metabolic acidosis Status: Acute (3) Acute renal failure Status: Acute (4) Anemia Status: Acute (5) Diabetic ketoacidosis Status: Acute Discharge Plan - Discharge Data Condition at Discharge: Stable Discharge Diet: diabetic diet Activity: resume usual activities as tolerated, as per physical therapy
--- NOTE | 2016-10-17 11:51 | Nephrology Progress Note ---
Nephrology - PN: Subj Interval history: No new symptoms today. No shortness of breath Exam (PN)-Nephrology - Vital Signs Vital signs: Period Temp Pulse Resp BP Sys/Desai Pulse Ox Last 24 Hr 98.1 F-99.5 F 78-97 14-20 127-153/60-76 95-99 Exam: ENT: Normal Cardiovascular: Regular rate and rhythm. No murmur rub or gallop Lungs: Clear Extremities: No edema - Lab 10/17/16 06:40 10/17/16 06:40 Most recent lab results ABG pH 7.304 (7.35-7.45) L 10/07/16 15:50 ABG pCO2 23.1 MM HG (35-48) L 10/07/16 15:50 ABG pO2 109.0 MM HG (80-95) H 10/07/16 15:50 ABG HCO3 11.2 MMOL/L (20-26) L 10/07/16 15:50 ABG O2 Saturation 97.1 % (95-100) 10/07/16 15:50 Calcium 7.7 MG/DL (8.5-10.1) L 10/17/16 06:40 Phosphorus 3.1 MG/DL (2.5-4.9) 10/11/16 03:07 Magnesium 1.9 MG/DL (1.8-2.4) 10/12/16 04:23 Assessment and Plan (1) Acute renal failure Status: Acute Assessment and plan: 61-year-old man admitted with: * DKA. Resolved * Pneumonia. Continue current antibiotics * Chronic renal failure stage III. Baseline creatinine 1.8 -2.0 * Acute renal failure. Urine output adequate. Creatinine is been stable at 3.6. This may be his new baseline. Current Visit: Yes (2) Altered mental status Status: Acute Current Visit: Yes (3) Diabetes mellitus Status: Chronic Current Visit: Yes Qualifiers: Diabetes mellitus type: type 2 Chronic kidney disease stage: stage 3 ( moderate) (4) Diabetic ketoacidosis Status: Acute Current Visit: Yes (5) Lactic acidosis Status: Acute Current Visit: Yes (6) Pneumonia Status: Acute Current Visit: Yes
[2016-10-17] MEDS ORDERED: SODIUM BICARBONATE 650 MG TABLET PO SCH (21:00)
== END 2016-10-17 12:29 | disposition swing bed (61) | DRG 871 ==
LOC: EDBD → EDUNIT# → N.ED 14:10 → SUATTDRO 16:02 → N.EDINP 16:02 → N.ICU 17:04 → N.2E 10-13 15:18
PROVIDERS: ADMIT Internal Medicine; ATTEND Internal Medicine

== ENCOUNTER 2017-07-11 10:15 | Inpatient (IN) ==
[2017-07-11] MEDS ORDERED: ACETAMINOPHEN 325 MG TABLET PO PRN (16:38)
[2017-07-11] MEDS ORDERED: ONDANSETRON 4 MG/2 ML VIAL IV PRN (16:38)
[2017-07-11] MEDS ORDERED: MAGNESIUM HYDROXIDE SUSP 30 ML UDCUP PO PRN (16:38)
[2017-07-11] MEDS ORDERED: DEXTROSE 50% 25 GM/50 ML VIAL IV PRN (16:38)
[2017-07-11] MEDS ORDERED: traMADol 50 MG TABLET PO PRN (16:38)
[2017-07-11] MEDS ORDERED: GLUCAGON 1 MG VIAL IM PRN (16:38)
[2017-07-11 19:01] LABS: Basophils % 0.4 % (0.0-0.8); Eosinophils # 2.9 10*3/uL (0.0-0.87); Eosinophils % 29.3 % (0.00-10.9); Hematocrit 26.2 VOL% (42.0-52.0); Hemoglobin 7.9 GM/DL (14.0-18.0); Immature Granulocytes % 0.6 %; Immature Granulocytes Absolute 0.06 #; Lymphocytes # 1.5 10*3/uL (1.4-4.0); Lymphocytes % 14.8 % (21.2-54.2); Mean Corpuscular HGB Conc 30.2 GM/DL (32-36); Mean Corpuscular Hemoglobin 25 PG (27-34); Mean Corpuscular Volume 82.1 FL (87-102); Mean Platelet Volume 9.2 FL (9.6-12.0); Monocytes # 0.7 10*3/uL (0.11-0.8); Neutrophils # 4.8 10*3/uL (1.4-7.4); Neutrophils % 47.9 % (38.7-73.9); Platelet Count 223 T/CUMM (130-400); Red Blood Count 3.19 MC/CUMM (3.8-5.5); Red Cell Distribution Width 19.2 % (9.3-17.3)
[2017-07-11 19:18] LABS: Alanine Aminotransferase 18 U/L (16-61); Alkaline Phosphatase 123 U/L (45-117); Aspartate Amino Transferase 16 U/L (0-37); Bilirubin,Total < 0.39 MG/DL (0.2-1.0); Blood Urea Nitrogen 39 MG/DL (7-18); Calcium 6.5 MG/DL (8.5-10.1); Glucose 121 MG/DL (74-106); Osmolality,Calculated 292.1 MOS/KG (273-304); Potassium 5.5 MMOL/L (3.5-5.1); Sodium 142 MMOL/L (136-145); Total Protein 7.3 G/DL (6.4-8.3)
[2017-07-11 19:57] LABS: Band Neutrophils 3 % (0-10); Eosinophils 32 % (0-10); Lymphocytes 10 % (20-55); Platelet Estimate Normal; Segmented Neutrophils 50 % (50-85); Total Cells Counted 100
[2017-07-11] MEDS ORDERED: VANCOMYCIN INJ 1,000 MG in SODIUM CHLORIDE 0.9% 250 ML IV PRN (20:26)
[2017-07-11] MEDS ORDERED: VANCOMYCIN INJ 1,000 MG in SODIUM CHLORIDE 0.9% 250 ML IV ONE (21:00)
[2017-07-11] MEDS: ENOXAPARIN 30 MG/0.3 ML SYRINGE SUBCUT SCH (21:30)
[2017-07-11] MEDS: INSULIN REGULAR 100 UNIT/ML SUBCUT SCH (21:30)
[2017-07-11] MEDS: DOCUSATE SODIUM 100 MG CAPSULE PO SCH (21:30)
[2017-07-11] MEDS: FAMOTIDINE 20 MG TABLET PO SCH (21:30)
[2017-07-11] MEDS ORDERED: SODIUM CHLORIDE 0.9% 1,000 ML IV PRN (23:47)
[2017-07-11] MEDS ORDERED: SODIUM POLYSTYRENE SULFATE 15 GM/60 ML BOTTLE PO STA (23:58)
[2017-07-12] MEDS ORDERED: FUROSEMIDE 40 MG/4 ML VIAL IV ONE (00:30)
[2017-07-12] MEDS: MUPIROCIN 2% OINT 22 GM TUBE TOP SCH ×3 (00:57→21:11)
[2017-07-12 02:31] LABS: Apearance,Urine CLEAR (Clear); Bilirubin,Urine Negative (Negative); Blood, Urine Negative (Negative); Glucose,Urine (UA) Negative (Negative); Ketones,Urine Negative (Negative); Nitrite,Urine Negative (Negative); Protein,Urine 100 MG/DL; RBC,Urine <1 /HPF (0-4); Squamous Epithelial Cell,Urine Occasional /HPF (0-10); Urine Color Straw (Yellow); Urine Specific Gravity 1.011 (1.001-1.035); Urine Urobilinogen < 2.0 EU/DL (0.2-1.0); WBC,Urine <1 /HPF (0-6)
[2017-07-12 03:48] LABS: Basophils % 0.4 % (0.0-0.8); Eosinophils # 2.8 10*3/uL (0.0-0.87); Eosinophils % 30.9 % (0.00-10.9); Hematocrit 24.9 VOL% (42.0-52.0); Hemoglobin 7.6 GM/DL (14.0-18.0); Immature Granulocytes % 0.4 %; Immature Granulocytes Absolute 0.04 #; Lymphocytes # 1.5 10*3/uL (1.4-4.0); Lymphocytes % 16.2 % (21.2-54.2); Mean Corpuscular HGB Conc 30.5 GM/DL (32-36); Mean Corpuscular Hemoglobin 24 PG (27-34); Mean Corpuscular Volume 80.1 FL (87-102); Mean Platelet Volume 10.3 FL (9.6-12.0); Monocytes # 0.7 10*3/uL (0.11-0.8); Monocytes % 7.2 % (1.7-12.7); Neutrophils # 4.1 10*3/uL (1.4-7.4); Neutrophils % 44.9 % (38.7-73.9); Platelet Count 237 T/CUMM (130-400); Red Blood Count 3.11 MC/CUMM (3.8-5.5); Red Cell Distribution Width 19.5 % (9.3-17.3); White Blood Count 9.1 T/CUMM (4-12)
[2017-07-12 04:21] LABS: Calcium 6.6 MG/DL (8.5-10.1); Osmolality,Calculated 298.7 MOS/KG (273-304); Potassium 5.7 MMOL/L (3.5-5.1); Risk Ratio 2.87
[2017-07-12 04:28] LABS: Thyroid Stimulating Hormone 0.972 uIU/ml (0.358-3.74); Uric Acid 7.9 MG/DL (3.5-7.2)
[2017-07-12 05:16] LABS: Band Neutrophils 1 % (0-10); Eosinophils 33 % (0-10); Hypochromasia 1+; Lymphocytes 25 % (20-55); Microcytosis 1+; Platelet Estimate Normal; Segmented Neutrophils 36 % (50-85); Total Cells Counted 100
[2017-07-12] MEDS: LEVOTHYROXINE 100 MCG TABLET PO SCH (06:49)
[2017-07-12] MEDS: INSULIN REGULAR 100 UNIT/ML SUBCUT SCH ×4 (07:17→21:05)
[2017-07-12] MEDS ORDERED: VANCOMYCIN 5,000 MG VIAL IV SCH (07:30)
[2017-07-12] MEDS ORDERED: ZALEPLON 5 MG CAPSULE PO PRN (08:20)
[2017-07-12] MEDS ORDERED: SKIN HEALING OINT (AQUAPHOR) 50 GM TUBE TOP PRN (08:20)
[2017-07-12] MEDS: DOCUSATE SODIUM 100 MG CAPSULE PO SCH ×2 (08:59→21:04)
[2017-07-12] MEDS: ESCITALOPRAM 10 MG TABLET PO SCH (08:59)
[2017-07-12] MEDS: SODIUM BICARBONATE 650 MG TABLET PO SCH ×2 (08:59→21:04)
[2017-07-12] MEDS: FUROSEMIDE 20 MG/2 ML VIAL IV SCH (08:59)
[2017-07-12] MEDS: FAMOTIDINE 20 MG TABLET PO SCH ×2 (08:59→21:04)
[2017-07-12] MEDS ORDERED: ESCITALOPRAM 10 MG TABLET PO SCH (09:00)
[2017-07-12] MEDS: diphenhydrAMINE 2% CREAM 28 GM TUBE TOP SCH ×3 (09:00→21:11)
[2017-07-12] MEDS ORDERED: ASPIRIN EC 81 MG TABLET PO SCH (09:00)
[2017-07-12] MEDS ORDERED: ASPIRIN CHEW 81 MG TABLET PO SCH (09:00)
[2017-07-12] MEDS: INSULIN GLARGINE 100 UNIT/ML SUBCUT SCH ×2 (09:00→17:06)
[2017-07-12] MEDS ORDERED: FUROSEMIDE 40 MG PO SCH (09:00)
[2017-07-12] MEDS ORDERED: predniSONE 10 MG TABLET PO SCH (09:00)
[2017-07-12] MEDS ORDERED: LEVOTHYROXINE 100 MCG TABLET PO SCH (09:00)
[2017-07-12] MEDS ORDERED: PANTOPRAZOLE 40 MG TABLET PO SCH (09:00)
[2017-07-12] MEDS: INSULIN LISPRO 100 UNIT/ML SUBCUT SCH ×2 (11:38→17:06)
[2017-07-12] MEDS: methylPREDNISolone SOD SUC 40 MG/1 ML VIAL IV SCH ×2 (11:38→21:05)
[2017-07-12 16:29] LABS: Basophils % 0.4 % (0.0-0.8); Eosinophils # 0.7 10*3/uL (0.0-0.87); Eosinophils % 6.6 % (0.00-10.9); Hematocrit 33.1 VOL% (42.0-52.0); Immature Granulocytes Absolute 0.11 #; Lymphocytes # 0.6 10*3/uL (1.4-4.0); Mean Corpuscular HGB Conc 29.9 GM/DL (32-36); Mean Corpuscular Hemoglobin 25 PG (27-34); Mean Corpuscular Volume 82.8 FL (87-102); Monocytes # 0.2 10*3/uL (0.11-0.8); Monocytes % 1.5 % (1.7-12.7); Neutrophils % 84.5 % (38.7-73.9); Platelet Count 246 T/CUMM (130-400); Red Cell Distribution Width 19.7 % (9.3-17.3); White Blood Count 10.7 T/CUMM (4-12)
[2017-07-12] MEDS ORDERED: INSULIN GLARGINE 100 UNIT/ML SUBCUT SCH (16:30)
[2017-07-12 16:31] LABS: Hemoglobin 9.9 GM/DL (14.0-18.0)
[2017-07-12 16:56] LABS: Calcium 6.8 MG/DL (8.5-10.1); Osmolality,Calculated 294.4 MOS/KG (273-304)
[2017-07-12 17:01] LABS: Potassium 6.2 MMOL/L (3.5-5.1)
[2017-07-12] MEDS: GABAPENTIN 100 MG CAPSULE PO SCH ×2 (17:05→21:07)
[2017-07-12] MEDS: FEXOFENADINE 180 MG TABLET PO SCH (17:05)
[2017-07-12] MEDS ORDERED: SODIUM POLYSTYRENE SULFATE 15 GM/60 ML BOTTLE PO STA (17:21)
[2017-07-12] MEDS: ATORVASTATIN 10 MG TABLET PO SCH (18:21)
[2017-07-12] MEDS: cloNIDine 0.1 MG TABLET PO SCH (21:04)
[2017-07-12] MEDS: LACTULOSE 20 GM/30 ML UDCUP PO SCH (21:05)
[2017-07-12] MEDS: ENOXAPARIN 30 MG/0.3 ML SYRINGE SUBCUT SCH (21:11)
[2017-07-13 03:29] LABS: Basophils # 0.1 10*3/uL (0.0-0.2); Basophils % 0.5 % (0.0-0.8); Eosinophils % 0.1 % (0.00-10.9); Hematocrit 32.2 VOL% (42.0-52.0); Hemoglobin 9.8 GM/DL (14.0-18.0); Immature Granulocytes % 1.2 %; Immature Granulocytes Absolute 0.13 #; Lymphocytes # 0.6 10*3/uL (1.4-4.0); Lymphocytes % 5.3 % (21.2-54.2); Mean Corpuscular HGB Conc 30.4 GM/DL (32-36); Mean Corpuscular Hemoglobin 25 PG (27-34); Mean Corpuscular Volume 81.5 FL (87-102); Mean Platelet Volume 9.5 FL (9.6-12.0); Monocytes # 0.2 10*3/uL (0.11-0.8); Monocytes % 2.1 % (1.7-12.7); Neutrophils # 9.7 10*3/uL (1.4-7.4); Neutrophils % 90.8 % (38.7-73.9); Platelet Count 231 T/CUMM (130-400); Red Blood Count 3.95 MC/CUMM (3.8-5.5); Red Cell Distribution Width 19.9 % (9.3-17.3); White Blood Count 10.7 T/CUMM (4-12)
[2017-07-13 03:57] LABS: Calcium 6.7 MG/DL (8.5-10.1); Potassium 5.5 MMOL/L (3.5-5.1)
[2017-07-13] MEDS: methylPREDNISolone SOD SUC 40 MG/1 ML VIAL IV SCH ×3 (04:25→21:14)
[2017-07-13] MEDS: LEVOTHYROXINE 100 MCG TABLET PO SCH (06:08)
[2017-07-13] MEDS ORDERED: INSULIN GLARGINE 100 UNIT/ML SUBCUT SCH (07:30)
[2017-07-13] MEDS: SODIUM BICARBONATE 650 MG TABLET PO SCH ×2 (08:24→21:21)
[2017-07-13] MEDS: DOCUSATE SODIUM 100 MG CAPSULE PO SCH ×2 (08:25→21:18)
[2017-07-13] MEDS: ESCITALOPRAM 10 MG TABLET PO SCH (08:25)
[2017-07-13] MEDS: ASPIRIN CHEW 81 MG TABLET PO SCH (08:25)
[2017-07-13] MEDS: FUROSEMIDE 20 MG/2 ML VIAL IV SCH (08:25)
[2017-07-13] MEDS: LACTULOSE 20 GM/30 ML UDCUP PO SCH ×2 (08:25→21:20)
[2017-07-13] MEDS: FEXOFENADINE 180 MG TABLET PO SCH (08:25)
[2017-07-13] MEDS: FAMOTIDINE 20 MG TABLET PO SCH ×2 (08:25→21:21)
[2017-07-13] MEDS: INSULIN GLARGINE 100 UNIT/ML SUBCUT SCH ×2 (08:26→17:05)
[2017-07-13] MEDS: INSULIN REGULAR 100 UNIT/ML SUBCUT SCH ×4 (08:26→21:43)
[2017-07-13] MEDS: INSULIN LISPRO 100 UNIT/ML SUBCUT SCH ×3 (08:26→17:05)
[2017-07-13] MEDS: MUPIROCIN 2% OINT 22 GM TUBE TOP SCH ×2 (08:27→21:19)
[2017-07-13] MEDS: diphenhydrAMINE 2% CREAM 28 GM TUBE TOP SCH ×3 (08:27→21:20)
[2017-07-13] MEDS: GABAPENTIN 100 MG CAPSULE PO SCH ×2 (17:05→21:19)
[2017-07-13] MEDS: ATORVASTATIN 10 MG TABLET PO SCH (18:24)
[2017-07-13] MEDS: cloNIDine 0.1 MG TABLET PO SCH (21:19)
[2017-07-13] MEDS: ENOXAPARIN 30 MG/0.3 ML SYRINGE SUBCUT SCH (21:20)
[2017-07-14] MEDS: methylPREDNISolone SOD SUC 40 MG/1 ML VIAL IV SCH ×3 (03:37→20:20)
[2017-07-14 04:18] LABS: Basophils % 0.2 % (0.0-0.8); Hematocrit 31.9 VOL% (42.0-52.0); Hemoglobin 9.3 GM/DL (14.0-18.0); Immature Granulocytes % 1.1 %; Lymphocytes # 0.5 10*3/uL (1.4-4.0); Lymphocytes % 5.3 % (21.2-54.2); Mean Corpuscular HGB Conc 29.2 GM/DL (32-36); Mean Corpuscular Hemoglobin 25 PG (27-34); Mean Corpuscular Volume 84.2 FL (87-102); Mean Platelet Volume 9.9 FL (9.6-12.0); Monocytes # 0.4 10*3/uL (0.11-0.8); Monocytes % 3.9 % (1.7-12.7); Neutrophils # 8.5 10*3/uL (1.4-7.4); Neutrophils % 89.5 % (38.7-73.9); Platelet Count 219 T/CUMM (130-400); Red Blood Count 3.79 MC/CUMM (3.8-5.5); Red Cell Distribution Width 20.1 % (9.3-17.3); White Blood Count 9.5 T/CUMM (4-12)
[2017-07-14 04:53] LABS: Calcium 6.5 MG/DL (8.5-10.1); Osmolality,Calculated 301.8 MOS/KG (273-304)
[2017-07-14] MEDS: LEVOTHYROXINE 100 MCG TABLET PO SCH (06:00)
[2017-07-14] MEDS ORDERED: SODIUM POLYSTYRENE SULFATE 15 GM/60 ML BOTTLE PO ONE (08:30)
[2017-07-14] MEDS: FAMOTIDINE 20 MG TABLET PO SCH ×2 (08:52→20:22)
[2017-07-14] MEDS: SODIUM BICARBONATE 650 MG TABLET PO SCH ×2 (08:52→20:22)
[2017-07-14] MEDS: LACTULOSE 20 GM/30 ML UDCUP PO SCH ×2 (08:52→20:23)
[2017-07-14] MEDS: ESCITALOPRAM 10 MG TABLET PO SCH (08:52)
[2017-07-14] MEDS: FEXOFENADINE 180 MG TABLET PO SCH (08:52)
[2017-07-14] MEDS: INSULIN GLARGINE 100 UNIT/ML SUBCUT SCH ×2 (08:53→16:55)
[2017-07-14] MEDS: ASPIRIN CHEW 81 MG TABLET PO SCH (08:53)
[2017-07-14] MEDS: FUROSEMIDE 20 MG/2 ML VIAL IV SCH (08:53)
[2017-07-14] MEDS: DOCUSATE SODIUM 100 MG CAPSULE PO SCH ×2 (08:53→20:22)
[2017-07-14] MEDS: INSULIN LISPRO 100 UNIT/ML SUBCUT SCH ×3 (08:54→16:54)
[2017-07-14] MEDS: MUPIROCIN 2% OINT 22 GM TUBE TOP SCH ×2 (08:54→20:29)
[2017-07-14] MEDS: INSULIN REGULAR 100 UNIT/ML SUBCUT SCH ×4 (08:54→20:23)
[2017-07-14] MEDS: diphenhydrAMINE 2% CREAM 28 GM TUBE TOP SCH ×3 (08:55→20:30)
[2017-07-14] MEDS: GABAPENTIN 100 MG CAPSULE PO SCH ×2 (16:54→20:22)
[2017-07-14] MEDS: cloNIDine 0.1 MG TABLET PO SCH (20:22)
[2017-07-14] MEDS: ATORVASTATIN 10 MG TABLET PO SCH (20:22)
[2017-07-14] MEDS: ENOXAPARIN 30 MG/0.3 ML SYRINGE SUBCUT SCH (20:22)
[2017-07-15] MEDS: methylPREDNISolone SOD SUC 40 MG/1 ML VIAL IV SCH ×3 (04:21→19:01)
[2017-07-15] MEDS: LEVOTHYROXINE 100 MCG TABLET PO SCH (06:41)
[2017-07-15] MEDS: INSULIN REGULAR 100 UNIT/ML SUBCUT SCH ×4 (09:02→21:56)
[2017-07-15] MEDS: INSULIN LISPRO 100 UNIT/ML SUBCUT SCH ×3 (09:04→16:25)
[2017-07-15] MEDS: INSULIN GLARGINE 100 UNIT/ML SUBCUT SCH ×2 (09:05→16:27)
[2017-07-15] MEDS: FEXOFENADINE 180 MG TABLET PO SCH (09:06)
[2017-07-15] MEDS: ASPIRIN CHEW 81 MG TABLET PO SCH (09:16)
[2017-07-15] MEDS: FUROSEMIDE 20 MG/2 ML VIAL IV SCH (09:16)
[2017-07-15] MEDS: DOCUSATE SODIUM 100 MG CAPSULE PO SCH ×2 (09:16→21:57)
[2017-07-15] MEDS: SODIUM BICARBONATE 650 MG TABLET PO SCH ×2 (09:17→21:57)
[2017-07-15] MEDS: LACTULOSE 20 GM/30 ML UDCUP PO SCH ×2 (09:17→21:56)
[2017-07-15] MEDS: ESCITALOPRAM 10 MG TABLET PO SCH (09:17)
[2017-07-15] MEDS: FAMOTIDINE 20 MG TABLET PO SCH ×2 (09:17→21:57)
[2017-07-15] MEDS ORDERED: SODIUM POLYSTYRENE SULFATE 15 GM/60 ML BOTTLE PO PRN (09:19)
[2017-07-15 10:54] LABS: Calcium 6.7 MG/DL (8.5-10.1); Osmolality,Calculated 306.8 MOS/KG (273-304)
[2017-07-15 10:58] LABS: Potassium 6.2 MMOL/L (3.5-5.1)
[2017-07-15] MEDS: GABAPENTIN 100 MG CAPSULE PO SCH ×2 (16:24→21:57)
[2017-07-15] MEDS: MUPIROCIN 2% OINT 22 GM TUBE TOP SCH ×2 (17:28→21:57)
[2017-07-15] MEDS: diphenhydrAMINE 2% CREAM 28 GM TUBE TOP SCH ×2 (17:28→21:57)
[2017-07-15] MEDS: ATORVASTATIN 10 MG TABLET PO SCH (18:22)
[2017-07-15] MEDS: ENOXAPARIN 30 MG/0.3 ML SYRINGE SUBCUT SCH (21:57)
[2017-07-15] MEDS: cloNIDine 0.1 MG TABLET PO SCH (21:57)
[2017-07-16] MEDS: methylPREDNISolone SOD SUC 40 MG/1 ML VIAL IV SCH ×3 (04:10→21:33)
[2017-07-16] MEDS: LEVOTHYROXINE 100 MCG TABLET PO SCH (06:03)
[2017-07-16 07:15] LABS: Calcium 6.6 MG/DL (8.5-10.1); Magnesium 1.9 MG/DL (1.8-2.4); Osmolality,Calculated 307.6 MOS/KG (273-304); Potassium 5.3 MMOL/L (3.5-5.1)
[2017-07-16 07:38] LABS: Basophils % 0.1 % (0.0-0.8); Hematocrit 32.5 VOL% (42.0-52.0); Hemoglobin 9.7 GM/DL (14.0-18.0); Immature Granulocytes % 1.2 %; Lymphocytes # 0.6 10*3/uL (1.4-4.0); Lymphocytes % 6.6 % (21.2-54.2); Mean Corpuscular HGB Conc 29.8 GM/DL (32-36); Mean Corpuscular Hemoglobin 25 PG (27-34); Mean Corpuscular Volume 84.4 FL (87-102); Mean Platelet Volume 9.7 FL (9.6-12.0); Monocytes # 0.4 10*3/uL (0.11-0.8); Monocytes % 4.3 % (1.7-12.7); Neutrophils # 7.4 10*3/uL (1.4-7.4); Neutrophils % 87.8 % (38.7-73.9); Platelet Count 196 T/CUMM (130-400); Red Blood Count 3.85 MC/CUMM (3.8-5.5); Red Cell Distribution Width 20.1 % (9.3-17.3); White Blood Count 8.5 T/CUMM (4-12)
[2017-07-16] MEDS: INSULIN REGULAR 100 UNIT/ML SUBCUT SCH ×5 (07:47→21:32)
[2017-07-16] MEDS: INSULIN GLARGINE 100 UNIT/ML SUBCUT SCH ×2 (08:09→16:24)
[2017-07-16] MEDS: INSULIN LISPRO 100 UNIT/ML SUBCUT SCH ×3 (08:09→16:23)
[2017-07-16] MEDS: FUROSEMIDE 20 MG/2 ML VIAL IV SCH (08:10)
[2017-07-16] MEDS: ESCITALOPRAM 10 MG TABLET PO SCH (08:14)
[2017-07-16] MEDS: ASPIRIN CHEW 81 MG TABLET PO SCH (08:14)
[2017-07-16] MEDS: LACTULOSE 20 GM/30 ML UDCUP PO SCH ×2 (08:14→21:32)
[2017-07-16] MEDS: DOCUSATE SODIUM 100 MG CAPSULE PO SCH ×2 (08:14→21:34)
[2017-07-16] MEDS: SODIUM BICARBONATE 650 MG TABLET PO SCH ×2 (08:15→21:33)
[2017-07-16] MEDS: FAMOTIDINE 20 MG TABLET PO SCH ×2 (08:15→21:34)
[2017-07-16] MEDS: MUPIROCIN 2% OINT 22 GM TUBE TOP SCH ×2 (08:16→21:39)
[2017-07-16] MEDS: FEXOFENADINE 180 MG TABLET PO SCH (08:27)
[2017-07-16] MEDS: GABAPENTIN 100 MG CAPSULE PO SCH ×2 (15:18→21:34)
[2017-07-16] MEDS: ATORVASTATIN 10 MG TABLET PO SCH (18:58)
[2017-07-16] MEDS: ENOXAPARIN 30 MG/0.3 ML SYRINGE SUBCUT SCH (21:33)
[2017-07-16] MEDS: cloNIDine 0.1 MG TABLET PO SCH (21:34)
[2017-07-17] MEDS: methylPREDNISolone SOD SUC 40 MG/1 ML VIAL IV SCH ×2 (03:08→11:30)
[2017-07-17] MEDS: LEVOTHYROXINE 100 MCG TABLET PO SCH (07:11)
[2017-07-17] MEDS: INSULIN REGULAR 100 UNIT/ML SUBCUT SCH ×3 (08:57→16:26)
[2017-07-17] MEDS: INSULIN LISPRO 100 UNIT/ML SUBCUT SCH ×3 (08:57→16:26)
[2017-07-17] MEDS: INSULIN GLARGINE 100 UNIT/ML SUBCUT SCH ×2 (08:58→16:26)
[2017-07-17] MEDS: MUPIROCIN 2% OINT 22 GM TUBE TOP SCH (08:58)
[2017-07-17] MEDS: SODIUM BICARBONATE 650 MG TABLET PO SCH (08:58)
[2017-07-17] MEDS: FEXOFENADINE 180 MG TABLET PO SCH (08:58)
[2017-07-17] MEDS: FAMOTIDINE 20 MG TABLET PO SCH (08:58)
[2017-07-17] MEDS: ASPIRIN CHEW 81 MG TABLET PO SCH (08:58)
[2017-07-17] MEDS: LACTULOSE 20 GM/30 ML UDCUP PO SCH (08:58)
[2017-07-17] MEDS: DOCUSATE SODIUM 100 MG CAPSULE PO SCH (08:58)
[2017-07-17] MEDS: FUROSEMIDE 20 MG/2 ML VIAL IV SCH (08:58)
[2017-07-17] MEDS: ESCITALOPRAM 10 MG TABLET PO SCH (08:58)
[2017-07-17] MEDS: GABAPENTIN 100 MG CAPSULE PO SCH (16:26)
[2017-07-17 16:29] VITALS: BP 142/78
== END 2017-07-17 18:50 | DRG 300 ==
LOC: N.3E 18:04
PROVIDERS: ADMIT Internal Medicine; ATTEND Internal Medicine

== ENCOUNTER 2018-02-17 13:55 | Inpatient (IN) ==
[2018-02-17] MEDS ORDERED: VANCOMYCIN INJ 1,000 MG in SODIUM CHLORIDE 0.9% 250 ML IV STA (14:38)
[2018-02-17 14:39] LABS: Basophils % 0.2 % (0.0-0.8); Eosinophils % 0.2 % (0.00-10.9); Hematocrit 25.4 VOL% (42.0-52.0); Immature Granulocytes % 1.3 %; Immature Granulocytes Absolute 0.16 #; Lymphocytes # 0.5 10*3/uL (1.4-4.0); Lymphocytes % 4.2 % (21.2-54.2); Mean Corpuscular HGB Conc 31.5 GM/DL (32-36); Mean Corpuscular Hemoglobin 28 PG (27-34); Mean Corpuscular Volume 87.3 FL (87-102); Mean Platelet Volume 10.1 FL (9.6-12.0); Monocytes # 0.9 10*3/uL (0.11-0.8); Monocytes % 6.7 % (1.7-12.7); Neutrophils % 87.4 % (38.7-73.9); Platelet Count 108 T/CUMM (130-400); Red Blood Count 2.91 MC/CUMM (3.8-5.5); Red Cell Distribution Width 14.9 % (9.3-17.3); White Blood Count 12.6 T/CUMM (4-12)
[2018-02-17 14:45] LABS: INR 1.1; PT Patient Result 11.8 SECS; Partial Thromboplastin Time 25.7 SECS (0-40)
[2018-02-17 14:53] LABS: Albumin 3.1 G/DL (3.4-5.0); Bilirubin,Total 0.7 MG/DL (0.2-1.0); Calcium 7.6 MG/DL (8.5-10.1); Osmolality,Calculated 293.1 MOS/KG (273-304); Potassium 4.5 MMOL/L (3.5-5.1); Total Protein 8.1 G/DL (6.4-8.3)
[2018-02-17 15:10] LABS: ABG Base Excess 4.2 MMOL/L (-2.5-2.5); ABG HCO3 27.8 MMOL/L (20-26); ABG Oxygen Saturation 64.3 % (95-100); ABG PH 7.413 (7.35-7.45); ABG TCO2 27.5 MMOL/L (23-27)
[2018-02-17 15:17] LABS: ABG PO2 36.2 MM HG (80-95)
[2018-02-17 15:29] LABS: Band Neutrophils 2 % (0-10); Eosinophils 1 % (0-10); Lymphocytes 3 % (20-55); Platelet Estimate Decreased; Polychromasia Few; Segmented Neutrophils 90 % (50-85); Total Cells Counted 100
[2018-02-17 15:33] LABS: ABG Base Excess 3.4 MMOL/L (-2.5-2.5); ABG HCO3 27.5 MMOL/L (20-26); ABG Oxygen Saturation 97.1 % (95-100); ABG PCO2 38.9 MM HG (35-48); ABG PH 7.457 (7.35-7.45); ABG PO2 84.8 MM HG (80-95); ABG TCO2 25.6 MMOL/L (23-27)
[2018-02-17] MEDS ORDERED: GLUCAGON 1 MG VIAL IM PRN (16:47)
[2018-02-17] MEDS ORDERED: DEXTROSE 50% 25 GM/50 ML VIAL IV PRN (16:47)
[2018-02-17] MEDS ORDERED: ACETAMINOPHEN 325 MG TABLET PO PRN (16:47)
[2018-02-17] MEDS ORDERED: ONDANSETRON 4 MG/2 ML VIAL IV PRN (16:47)
[2018-02-17] MEDS ORDERED: SODIUM CHLORIDE 0.9% 1,000 ML IV SCH (16:47)
[2018-02-17] MEDS: INSULIN LISPRO 100 UNIT/ML SUBCUT SCH ×2 (17:52→20:20)
[2018-02-17] MEDS: cloNIDine 0.1 MG TABLET PO SCH (20:20)
[2018-02-17] MEDS: DOCUSATE SODIUM 100 MG CAPSULE PO SCH (20:20)
[2018-02-17 23:17] LABS: Lactic Acid 0.7 MMOL/L (0.4-2.0)
[2018-02-17] MEDS: cefTRIAXone 1,000 MG in SYRINGE 1 EACH IV SCH (23:30)
[2018-02-17] MEDS: CLINDAMYCIN INJ 600 MG in PREMIX 1 EACH IV SCH (23:30)
[2018-02-18 03:17] LABS: Basophils % 0.3 % (0.0-0.8); Eosinophils % 0.4 % (0.00-10.9); Hematocrit 23.7 VOL% (42.0-52.0); Hemoglobin 7.4 GM/DL (14.0-18.0); Immature Granulocytes % 0.6 %; Immature Granulocytes Absolute 0.06 #; Lymphocytes # 0.9 10*3/uL (1.4-4.0); Lymphocytes % 8.6 % (21.2-54.2); Mean Corpuscular HGB Conc 31.2 GM/DL (32-36); Mean Corpuscular Hemoglobin 27 PG (27-34); Mean Corpuscular Volume 87.1 FL (87-102); Mean Platelet Volume 10.2 FL (9.6-12.0); Monocytes # 1.1 10*3/uL (0.11-0.8); Monocytes % 10.8 % (1.7-12.7); Neutrophils # 8.3 10*3/uL (1.4-7.4); Neutrophils % 79.3 % (38.7-73.9); Platelet Count 100 T/CUMM (130-400); Red Blood Count 2.72 MC/CUMM (3.8-5.5); Red Cell Distribution Width 14.7 % (9.3-17.3); White Blood Count 10.4 T/CUMM (4-12)
[2018-02-18 03:32] LABS: Calcium 7.5 MG/DL (8.5-10.1); Potassium 4.2 MMOL/L (3.5-5.1)
[2018-02-18] MEDS: CLINDAMYCIN INJ 600 MG in PREMIX 1 EACH IV SCH ×3 (06:03→22:54)
[2018-02-18] MEDS ORDERED: SODIUM CHLORIDE 0.9% 1,000 ML IV PRN (06:38)
[2018-02-18] MEDS ORDERED: LACTULOSE 20 GM/30 ML UDCUP PO PRN (06:46)
[2018-02-18] MEDS ORDERED: POLYVINYL ALCOHOL 1.4% OPH SOLN 15 ML BOTTLE BOTH EYES PRN (06:46)
[2018-02-18] MEDS ORDERED: GLUCAGON 1 MG VIAL IM PRN (06:52)
[2018-02-18] MEDS ORDERED: DEXTROSE 50% 25 GM/50 ML VIAL IV PRN (06:52)
[2018-02-18] MEDS ORDERED: LEVOTHYROXINE 100 MCG TABLET PO SCH (07:00)
[2018-02-18] MEDS: ALBUTEROL/IPRATROPIUM 3 ML NEB RESP TX SCH ×3 (07:00→23:50)
[2018-02-18] MEDS ORDERED: INSULIN DETEMIR 100 UNIT/ML SUBCUT SCH ×2 (07:30→16:30)
[2018-02-18] MEDS: INSULIN REGULAR 100 UNIT/ML SUBCUT SCH ×4 (07:41→20:29)
[2018-02-18] MEDS: LEVOTHYROXINE 125 MCG TABLET PO SCH (07:42)
[2018-02-18] MEDS: CALCIUM ACETATE 667 MG CAPSULE PO SCH ×3 (07:42→17:15)
[2018-02-18] MEDS: INSULIN GLARGINE 100 UNIT/ML SUBCUT SCH (07:59)
[2018-02-18] MEDS: DOCUSATE SODIUM 100 MG CAPSULE PO SCH ×2 (08:00→20:29)
[2018-02-18] MEDS: FAMOTIDINE 20 MG TABLET PO SCH (08:00)
[2018-02-18] MEDS: FERROUS SULFATE 325 MG TABLET PO SCH (08:00)
[2018-02-18] MEDS: cloNIDine 0.1 MG TABLET PO SCH ×3 (08:00→20:29)
[2018-02-18] MEDS: FEXOFENADINE 180 MG TABLET PO SCH (08:00)
[2018-02-18] MEDS: ESCITALOPRAM 10 MG TABLET PO SCH (08:00)
[2018-02-18] MEDS: ASPIRIN CHEW 81 MG TABLET PO SCH (08:00)
[2018-02-18] MEDS ORDERED: PANTOPRAZOLE 40 MG TABLET PO SCH (09:00)
[2018-02-18] MEDS ORDERED: INSULIN GLARGINE 100 UNIT/ML SUBCUT SCH ×2 (09:00→21:00)
[2018-02-18] MEDS: TRIAMCINOLONE 0.1% CREAM 15 GM TUBE TOP SCH ×2 (12:16→20:32)
[2018-02-18] MEDS: GABAPENTIN 100 MG CAPSULE PO SCH ×2 (15:35→20:29)
[2018-02-18] MEDS: cefTRIAXone 1,000 MG in SYRINGE 1 EACH IV SCH (22:54)
[2018-02-19 04:53] LABS: Basophils % 0.2 % (0.0-0.8); Eosinophils # 0.3 10*3/uL (0.0-0.87); Eosinophils % 3.1 % (0.00-10.9); Hematocrit 31.2 VOL% (42.0-52.0); Immature Granulocytes % 0.8 %; Immature Granulocytes Absolute 0.09 #; Lymphocytes % 9.6 % (21.2-54.2); Mean Corpuscular HGB Conc 31.7 GM/DL (32-36); Mean Corpuscular Hemoglobin 28 PG (27-34); Mean Corpuscular Volume 87.4 FL (87-102); Mean Platelet Volume 10.5 FL (9.6-12.0); Monocytes # 1.6 10*3/uL (0.11-0.8); Monocytes % 14.5 % (1.7-12.7); Neutrophils # 7.7 10*3/uL (1.4-7.4); Neutrophils % 71.8 % (38.7-73.9); Platelet Count 103 T/CUMM (130-400); Red Blood Count 3.57 MC/CUMM (3.8-5.5); Red Cell Distribution Width 14.5 % (9.3-17.3); White Blood Count 10.7 T/CUMM (4-12)
[2018-02-19 04:55] LABS: Hemoglobin 9.9 GM/DL (14.0-18.0)
[2018-02-19 05:22] LABS: Calcium 7.8 MG/DL (8.5-10.1); Osmolality,Calculated 296.1 MOS/KG (273-304); Potassium 4.3 MMOL/L (3.5-5.1)
[2018-02-19 05:27] LABS: Band Neutrophils 4 % (0-10); Eosinophils 3 % (0-10); Hypochromasia 1+; Lymphocytes 8 % (20-55); Microcytosis 1+; Platelet Estimate Adequate; Segmented Neutrophils 74 % (50-85); Total Cells Counted 100
[2018-02-19] MEDS: LEVOTHYROXINE 125 MCG TABLET PO SCH (06:00)
[2018-02-19] MEDS: CLINDAMYCIN INJ 600 MG in PREMIX 1 EACH IV SCH ×3 (06:00→22:44)
[2018-02-19] MEDS: ALBUTEROL/IPRATROPIUM 3 ML NEB RESP TX SCH ×3 (07:47→23:09)
[2018-02-19] MEDS: FERROUS SULFATE 325 MG TABLET PO SCH (08:56)
[2018-02-19] MEDS: ASPIRIN CHEW 81 MG TABLET PO SCH (08:58)
[2018-02-19] MEDS: FAMOTIDINE 20 MG TABLET PO SCH (08:58)
[2018-02-19] MEDS: DOCUSATE SODIUM 100 MG CAPSULE PO SCH ×2 (08:58→20:45)
[2018-02-19] MEDS: ESCITALOPRAM 10 MG TABLET PO SCH (08:58)
[2018-02-19] MEDS: FEXOFENADINE 180 MG TABLET PO SCH (08:58)
[2018-02-19] MEDS: cloNIDine 0.1 MG TABLET PO SCH ×3 (08:58→20:45)
[2018-02-19] MEDS: INSULIN REGULAR 100 UNIT/ML SUBCUT SCH ×4 (08:58→20:45)
[2018-02-19] MEDS: INSULIN GLARGINE 100 UNIT/ML SUBCUT SCH ×2 (08:59→20:44)
[2018-02-19] MEDS: CALCIUM ACETATE 667 MG CAPSULE PO SCH ×3 (10:22→17:26)
[2018-02-19] MEDS: TRIAMCINOLONE 0.1% CREAM 15 GM TUBE TOP SCH ×2 (17:21→20:45)
[2018-02-19] MEDS: GABAPENTIN 100 MG CAPSULE PO SCH ×2 (17:27→20:45)
[2018-02-19] MEDS ORDERED: cloNIDine 0.1 MG TABLET PO PRN (18:05)
[2018-02-19] MEDS: cefTRIAXone 1,000 MG in SYRINGE 1 EACH IV SCH (22:43)
[2018-02-20 04:25] LABS: Hematocrit 27.3 VOL% (42.0-52.0); Hemoglobin 8.9 GM/DL (14.0-18.0); Lymphocytes % 11.1 % (21.2-54.2); Mean Corpuscular HGB Conc 32.6 GM/DL (32-36); Mean Corpuscular Hemoglobin 28 PG (27-34); Mean Corpuscular Volume 84.3 FL (87-102); Mean Platelet Volume 10.8 FL (9.6-12.0); Neutrophils % 71.1 % (38.7-73.9); Platelet Count 114 T/CUMM (130-400); Red Blood Count 3.24 MC/CUMM (3.8-5.5); Red Cell Distribution Width 14.6 % (9.3-17.3)
[2018-02-20 04:26] LABS: Basophils % 0.4 % (0.0-0.8); Eosinophils # 0.3 10*3/uL (0.0-0.87); Eosinophils % 3.9 % (0.00-10.9); Immature Granulocytes Absolute 0.08 #; Lymphocytes # 0.9 10*3/uL (1.4-4.0); Monocytes % 12.5 % (1.7-12.7); Neutrophils # 5.7 10*3/uL (1.4-7.4)
[2018-02-20] MEDS: LEVOTHYROXINE 125 MCG TABLET PO SCH ×2 (06:05→10:42)
[2018-02-20] MEDS: CLINDAMYCIN INJ 600 MG in PREMIX 1 EACH IV SCH ×3 (06:06→23:55)
[2018-02-20] MEDS: ALBUTEROL/IPRATROPIUM 3 ML NEB RESP TX SCH ×3 (07:35→23:47)
[2018-02-20] MEDS: INSULIN REGULAR 100 UNIT/ML SUBCUT SCH ×4 (08:41→20:23)
[2018-02-20] MEDS: CALCIUM ACETATE 667 MG CAPSULE PO SCH ×3 (08:41→17:29)
[2018-02-20] MEDS: ASPIRIN CHEW 81 MG TABLET PO SCH (10:39)
[2018-02-20] MEDS: FEXOFENADINE 180 MG TABLET PO SCH (10:39)
[2018-02-20] MEDS: cloNIDine 0.1 MG TABLET PO SCH ×3 (10:40→20:22)
[2018-02-20] MEDS: FERROUS SULFATE 325 MG TABLET PO SCH (10:40)
[2018-02-20] MEDS: DOCUSATE SODIUM 100 MG CAPSULE PO SCH ×2 (10:40→20:23)
[2018-02-20] MEDS: FAMOTIDINE 20 MG TABLET PO SCH (10:41)
[2018-02-20] MEDS: ESCITALOPRAM 10 MG TABLET PO SCH (10:41)
[2018-02-20] MEDS: INSULIN GLARGINE 100 UNIT/ML SUBCUT SCH ×2 (14:09→20:23)
[2018-02-20] MEDS: TRIAMCINOLONE 0.1% CREAM 15 GM TUBE TOP SCH ×2 (14:11→20:23)
[2018-02-20] MEDS: GABAPENTIN 100 MG CAPSULE PO SCH ×2 (17:29→20:22)
[2018-02-20] MEDS: cefTRIAXone 1,000 MG in SYRINGE 1 EACH IV SCH (23:54)
[2018-02-21] MEDS: LEVOTHYROXINE 125 MCG TABLET PO SCH (06:03)
[2018-02-21] MEDS: CLINDAMYCIN INJ 600 MG in PREMIX 1 EACH IV SCH ×2 (06:03→17:26)
[2018-02-21 06:05] LABS: Basophils % 0.5 % (0.0-0.8); Eosinophils # 0.5 10*3/uL (0.0-0.87); Hematocrit 27.7 VOL% (42.0-52.0); Hemoglobin 9.1 GM/DL (14.0-18.0); Immature Granulocytes % 2.4 %; Immature Granulocytes Absolute 0.19 #; Lymphocytes % 12.5 % (21.2-54.2); Mean Corpuscular HGB Conc 32.9 GM/DL (32-36); Mean Corpuscular Hemoglobin 28 PG (27-34); Mean Corpuscular Volume 84.2 FL (87-102); Mean Platelet Volume 10.7 FL (9.6-12.0); Monocytes # 0.7 10*3/uL (0.11-0.8); Monocytes % 8.8 % (1.7-12.7); Neutrophils # 5.6 10*3/uL (1.4-7.4); Neutrophils % 69.8 % (38.7-73.9); Platelet Count 138 T/CUMM (130-400); Red Blood Count 3.29 MC/CUMM (3.8-5.5); Red Cell Distribution Width 14.6 % (9.3-17.3)
[2018-02-21] MEDS ORDERED: LIDOCAINE 1%/EPI INJ 20 ML VIAL ONE (06:25)
[2018-02-21] MEDS ORDERED: HEPARIN 5,000 UNIT/1 ML VIAL ONE (06:25)
[2018-02-21] MEDS ORDERED: BUPIVACAINE 0.25% /EPI 10 ML VIAL ONE (06:25)
[2018-02-21 06:32] LABS: Albumin 2.7 G/DL (3.4-5.0); Bilirubin,Total 0.7 MG/DL (0.2-1.0); Calcium 6.7 MG/DL (8.5-10.1); Osmolality,Calculated 302.5 MOS/KG (273-304); Potassium 4.7 MMOL/L (3.5-5.1)
[2018-02-21] MEDS: ALBUTEROL/IPRATROPIUM 3 ML NEB RESP TX SCH ×3 (07:18→23:58)
[2018-02-21] MEDS ORDERED: PROPOFOL 200 MG/20 ML VIAL IV ONE (07:58)
[2018-02-21] MEDS ORDERED: fentaNYL 100 MCG/2 ML VIAL ONE (07:58)
[2018-02-21] MEDS ORDERED: MIDAZOLAM 2 MG/2 ML VIAL ONE (07:59)
[2018-02-21] MEDS ORDERED: KETAMINE 500 MG/10 ML VIAL ONE (07:59)
[2018-02-21] MEDS ORDERED: SODIUM CHLORIDE 0.9% 250 ML IV ONE (07:59)
[2018-02-21] MEDS: INSULIN REGULAR 100 UNIT/ML SUBCUT SCH ×4 (08:31→23:29)
[2018-02-21] MEDS: CALCIUM ACETATE 667 MG CAPSULE PO SCH ×3 (08:37→17:46)
[2018-02-21] MEDS: FAMOTIDINE 20 MG TABLET PO SCH (08:37)
[2018-02-21] MEDS: FEXOFENADINE 180 MG TABLET PO SCH (08:37)
[2018-02-21] MEDS: ASPIRIN CHEW 81 MG TABLET PO SCH (08:37)
[2018-02-21] MEDS: DOCUSATE SODIUM 100 MG CAPSULE PO SCH ×2 (08:38→20:49)
[2018-02-21] MEDS: cloNIDine 0.1 MG TABLET PO SCH ×4 (08:38→20:49)
[2018-02-21] MEDS: ESCITALOPRAM 10 MG TABLET PO SCH (08:38)
[2018-02-21] MEDS: TRIAMCINOLONE 0.1% CREAM 15 GM TUBE TOP SCH ×2 (08:38→23:29)
[2018-02-21] MEDS: FERROUS SULFATE 325 MG TABLET PO SCH (08:38)
[2018-02-21] MEDS: INSULIN GLARGINE 100 UNIT/ML SUBCUT SCH ×2 (11:33→20:50)
[2018-02-21] MEDS ORDERED: HEPARIN 10,000 UNIT/10 ML VIAL IV PRN (15:49)
[2018-02-21] MEDS: GABAPENTIN 100 MG CAPSULE PO SCH ×2 (17:30→20:49)
[2018-02-21] MEDS: OXACILLIN 500 MG in SODIUM CHLORIDE 0.9% 100 ML IV SCH ×2 (17:45→23:29)
[2018-02-22] MEDS: CLINDAMYCIN INJ 600 MG in PREMIX 1 EACH IV SCH ×4 (00:54→23:40)
[2018-02-22] MEDS: OXACILLIN 500 MG in SODIUM CHLORIDE 0.9% 100 ML IV SCH ×4 (04:07→22:21)
[2018-02-22 07:28] LABS: Basophils % 0.3 % (0.0-0.8); Eosinophils # 0.6 10*3/uL (0.0-0.87); Eosinophils % 6.6 % (0.00-10.9); Hematocrit 28.8 VOL% (42.0-52.0); Hemoglobin 9.2 GM/DL (14.0-18.0); Immature Granulocytes % 2.4 %; Immature Granulocytes Absolute 0.21 #; Lymphocytes % 11.9 % (21.2-54.2); Mean Corpuscular HGB Conc 31.9 GM/DL (32-36); Mean Corpuscular Hemoglobin 28 PG (27-34); Mean Corpuscular Volume 87.3 FL (87-102); Mean Platelet Volume 10.4 FL (9.6-12.0); Monocytes # 0.7 10*3/uL (0.11-0.8); Monocytes % 7.5 % (1.7-12.7); Neutrophils # 6.2 10*3/uL (1.4-7.4); Neutrophils % 71.3 % (38.7-73.9); Platelet Count 154 T/CUMM (130-400); Red Cell Distribution Width 14.6 % (9.3-17.3); White Blood Count 8.7 T/CUMM (4-12)
[2018-02-22] MEDS: ALBUTEROL/IPRATROPIUM 3 ML NEB RESP TX SCH ×4 (07:29→23:28)
[2018-02-22 07:46] LABS: Calcium 6.8 MG/DL (8.5-10.1); Osmolality,Calculated 289.7 MOS/KG (273-304); Potassium 4.3 MMOL/L (3.5-5.1)
[2018-02-22] MEDS: INSULIN REGULAR 100 UNIT/ML SUBCUT SCH ×4 (08:21→20:46)
[2018-02-22] MEDS: INSULIN GLARGINE 100 UNIT/ML SUBCUT SCH ×2 (08:22→20:45)
[2018-02-22] MEDS: LEVOTHYROXINE 125 MCG TABLET PO SCH (10:25)
[2018-02-22] MEDS: CALCIUM ACETATE 667 MG CAPSULE PO SCH ×3 (11:43→17:23)
[2018-02-22] MEDS: cloNIDine 0.1 MG TABLET PO SCH ×4 (11:43→20:45)
[2018-02-22] MEDS: ASPIRIN CHEW 81 MG TABLET PO SCH (11:44)
[2018-02-22] MEDS: TRIAMCINOLONE 0.1% CREAM 15 GM TUBE TOP SCH ×2 (11:44→20:46)
[2018-02-22] MEDS: FEXOFENADINE 180 MG TABLET PO SCH (11:44)
[2018-02-22] MEDS: ESCITALOPRAM 10 MG TABLET PO SCH (11:44)
[2018-02-22] MEDS: DOCUSATE SODIUM 100 MG CAPSULE PO SCH ×2 (11:44→20:45)
[2018-02-22] MEDS: FERROUS SULFATE 325 MG TABLET PO SCH (11:44)
[2018-02-22] MEDS: FAMOTIDINE 20 MG TABLET PO SCH (11:44)
[2018-02-22] MEDS: GABAPENTIN 100 MG CAPSULE PO SCH ×2 (17:23→20:45)
[2018-02-23] MEDS: OXACILLIN 500 MG in SODIUM CHLORIDE 0.9% 100 ML IV SCH ×4 (04:46→21:30)
[2018-02-23] MEDS: LEVOTHYROXINE 125 MCG TABLET PO SCH (06:33)
[2018-02-23 06:59] LABS: Basophils % 0.4 % (0.0-0.8); Eosinophils # 0.5 10*3/uL (0.0-0.87); Eosinophils % 7.2 % (0.00-10.9); Hematocrit 29.7 VOL% (42.0-52.0); Hemoglobin 9.5 GM/DL (14.0-18.0); Lymphocytes # 1.1 10*3/uL (1.4-4.0); Lymphocytes % 14.6 % (21.2-54.2); Mean Corpuscular Hemoglobin 28 PG (27-34); Mean Corpuscular Volume 86.8 FL (87-102); Mean Platelet Volume 10.2 FL (9.6-12.0); Monocytes # 0.6 10*3/uL (0.11-0.8); Monocytes % 8.5 % (1.7-12.7); Neutrophils # 4.9 10*3/uL (1.4-7.4); Neutrophils % 65.3 % (38.7-73.9); Platelet Count 172 T/CUMM (130-400); Red Blood Count 3.42 MC/CUMM (3.8-5.5); Red Cell Distribution Width 14.6 % (9.3-17.3); White Blood Count 7.5 T/CUMM (4-12)
[2018-02-23 07:17] LABS: Calcium 7.3 MG/DL (8.5-10.1); Osmolality,Calculated 286.8 MOS/KG (273-304); Potassium 4.4 MMOL/L (3.5-5.1)
[2018-02-23] MEDS: ALBUTEROL/IPRATROPIUM 3 ML NEB RESP TX SCH ×3 (07:44→23:34)
[2018-02-23] MEDS: cloNIDine 0.1 MG TABLET PO SCH ×4 (09:27→21:29)
[2018-02-23] MEDS: DOCUSATE SODIUM 100 MG CAPSULE PO SCH ×2 (09:27→21:29)
[2018-02-23] MEDS: ESCITALOPRAM 10 MG TABLET PO SCH (09:27)
[2018-02-23] MEDS: ASPIRIN CHEW 81 MG TABLET PO SCH (09:27)
[2018-02-23] MEDS: TRIAMCINOLONE 0.1% CREAM 15 GM TUBE TOP SCH ×2 (09:28→21:30)
[2018-02-23] MEDS: INSULIN GLARGINE 100 UNIT/ML SUBCUT SCH ×2 (09:28→21:30)
[2018-02-23] MEDS: FEXOFENADINE 180 MG TABLET PO SCH (09:28)
[2018-02-23] MEDS: CALCIUM ACETATE 667 MG CAPSULE PO SCH ×3 (09:28→17:33)
[2018-02-23] MEDS: FAMOTIDINE 20 MG TABLET PO SCH (09:28)
[2018-02-23] MEDS: INSULIN REGULAR 100 UNIT/ML SUBCUT SCH ×4 (09:29→21:30)
[2018-02-23] MEDS: CLINDAMYCIN INJ 600 MG in PREMIX 1 EACH IV SCH ×2 (09:29→17:33)
[2018-02-23] MEDS: FERROUS SULFATE 325 MG TABLET PO SCH (09:30)
[2018-02-23] MEDS: GABAPENTIN 100 MG CAPSULE PO SCH ×2 (17:33→21:29)
[2018-02-24] MEDS: CLINDAMYCIN INJ 600 MG in PREMIX 1 EACH IV SCH ×4 (00:52→23:13)
[2018-02-24] MEDS: OXACILLIN 500 MG in SODIUM CHLORIDE 0.9% 100 ML IV SCH ×4 (04:30→21:57)
[2018-02-24 06:51] LABS: Basophils % 0.2 % (0.0-0.8); Eosinophils # 0.6 10*3/uL (0.0-0.87); Eosinophils % 9.3 % (0.00-10.9); Hematocrit 27.9 VOL% (42.0-52.0); Hemoglobin 9.2 GM/DL (14.0-18.0); Immature Granulocytes % 4.4 %; Immature Granulocytes Absolute 0.27 #; Lymphocytes # 0.9 10*3/uL (1.4-4.0); Lymphocytes % 13.9 % (21.2-54.2); Mean Corpuscular Hemoglobin 28 PG (27-34); Mean Corpuscular Volume 85.1 FL (87-102); Mean Platelet Volume 9.5 FL (9.6-12.0); Monocytes # 0.5 10*3/uL (0.11-0.8); Monocytes % 7.5 % (1.7-12.7); Neutrophils # 3.9 10*3/uL (1.4-7.4); Neutrophils % 64.7 % (38.7-73.9); Platelet Count 159 T/CUMM (130-400); Red Blood Count 3.28 MC/CUMM (3.8-5.5); Red Cell Distribution Width 14.6 % (9.3-17.3); White Blood Count 6.1 T/CUMM (4-12)
[2018-02-24 07:12] LABS: Calcium 6.8 MG/DL (8.5-10.1); Osmolality,Calculated 298.5 MOS/KG (273-304); Potassium 4.6 MMOL/L (3.5-5.1)
[2018-02-24] MEDS: LEVOTHYROXINE 125 MCG TABLET PO SCH (07:18)
[2018-02-24] MEDS: ALBUTEROL/IPRATROPIUM 3 ML NEB RESP TX SCH ×3 (07:20→23:04)
[2018-02-24] MEDS: INSULIN REGULAR 100 UNIT/ML SUBCUT SCH ×4 (08:47→21:58)
[2018-02-24] MEDS: FAMOTIDINE 20 MG TABLET PO SCH (09:33)
[2018-02-24] MEDS: ASPIRIN CHEW 81 MG TABLET PO SCH (09:33)
[2018-02-24] MEDS: ESCITALOPRAM 10 MG TABLET PO SCH (09:33)
[2018-02-24] MEDS: INSULIN GLARGINE 100 UNIT/ML SUBCUT SCH ×2 (09:33→21:59)
[2018-02-24] MEDS: FERROUS SULFATE 325 MG TABLET PO SCH (09:33)
[2018-02-24] MEDS: cloNIDine 0.1 MG TABLET PO SCH ×4 (09:33→21:58)
[2018-02-24] MEDS: FEXOFENADINE 180 MG TABLET PO SCH (09:33)
[2018-02-24] MEDS: DOCUSATE SODIUM 100 MG CAPSULE PO SCH ×2 (09:33→21:58)
[2018-02-24] MEDS: CALCIUM ACETATE 667 MG CAPSULE PO SCH ×3 (09:33→17:36)
[2018-02-24] MEDS: TRIAMCINOLONE 0.1% CREAM 15 GM TUBE TOP SCH ×2 (09:34→22:00)
[2018-02-24] MEDS: GABAPENTIN 100 MG CAPSULE PO SCH ×2 (15:50→21:58)
[2018-02-24] MEDS: DESITIN 4OZ/NYSTATIN 15 GRAM MIXTURE PASTE TOP SCH (22:00)
[2018-02-25] MEDS: OXACILLIN 500 MG in SODIUM CHLORIDE 0.9% 100 ML IV SCH ×3 (04:39→17:23)
[2018-02-25] MEDS: LEVOTHYROXINE 125 MCG TABLET PO SCH (06:57)
[2018-02-25] MEDS: ALBUTEROL/IPRATROPIUM 3 ML NEB RESP TX SCH ×2 (07:31→14:11)
[2018-02-25] MEDS: ASPIRIN CHEW 81 MG TABLET PO SCH (09:12)
[2018-02-25] MEDS: CLINDAMYCIN INJ 600 MG in PREMIX 1 EACH IV SCH ×2 (09:12→17:22)
[2018-02-25] MEDS: FEXOFENADINE 180 MG TABLET PO SCH (09:12)
[2018-02-25] MEDS: FERROUS SULFATE 325 MG TABLET PO SCH (09:12)
[2018-02-25] MEDS: DOCUSATE SODIUM 100 MG CAPSULE PO SCH (09:12)
[2018-02-25] MEDS: CALCIUM ACETATE 667 MG CAPSULE PO SCH ×2 (09:12→15:10)
[2018-02-25] MEDS: ESCITALOPRAM 10 MG TABLET PO SCH (09:12)
[2018-02-25] MEDS: FAMOTIDINE 20 MG TABLET PO SCH (09:12)
[2018-02-25] MEDS: INSULIN REGULAR 100 UNIT/ML SUBCUT SCH ×2 (09:13→13:40)
[2018-02-25] MEDS: INSULIN GLARGINE 100 UNIT/ML SUBCUT SCH (09:13)
[2018-02-25] MEDS: TRIAMCINOLONE 0.1% CREAM 15 GM TUBE TOP SCH (09:13)
[2018-02-25] MEDS: DESITIN 4OZ/NYSTATIN 15 GRAM MIXTURE PASTE TOP SCH (09:14)
[2018-02-25] MEDS: cloNIDine 0.1 MG TABLET PO SCH ×2 (11:04→15:10)
[2018-02-25 15:14] VITALS: BP 174/86
[2018-02-25] MEDS: GABAPENTIN 100 MG CAPSULE PO SCH (17:23)
== END 2018-02-25 16:20 | DRG 314 ==
LOC: EDBD → EDUNIT# → N.ED 13:55 → N.EDINP 15:21 → N.ICU 16:54 → N.5E 02-21 17:14
PROVIDERS: ADMIT Internal Medicine; ATTEND Internal Medicine

== ENCOUNTER 2018-03-14 13:44 | Inpatient (IN) ==
[2018-03-14] MEDS ORDERED: PIPERACILLIN/TAZOBACTAM 3,375 MG in SODIUM CHLORIDE 0.9% 100 ML IV STA (14:50)
[2018-03-14] MEDS ORDERED: VANCOMYCIN INJ 1,500 MG in SODIUM CHLORIDE 0.9% 500 ML IV STA (14:50)
[2018-03-14] MEDS ORDERED: SODIUM CHLORIDE 0.9% 2,000 ML IV STA (15:13)
[2018-03-14 16:10] LABS: Basophils # 0.1 10*3/uL (0.0-0.2); Basophils % 0.4 % (0.0-0.8); Eosinophils % 0.2 % (0.00-10.9); Hematocrit 39.9 VOL% (42.0-52.0); Hemoglobin 12.3 GM/DL (14.0-18.0); Immature Granulocytes % 1.9 %; Immature Granulocytes Absolute 0.27 #; Lymphocytes # 0.3 10*3/uL (1.4-4.0); Lymphocytes % 2.4 % (21.2-54.2); Mean Corpuscular HGB Conc 30.8 GM/DL (32-36); Mean Corpuscular Hemoglobin 28 PG (27-34); Mean Corpuscular Volume 89.7 FL (87-102); Mean Platelet Volume 10.9 FL (9.6-12.0); Monocytes # 0.4 10*3/uL (0.11-0.8); Monocytes % 2.9 % (1.7-12.7); NRBC # 0.02 10*3/uL; Neutrophils # 13.1 10*3/uL (1.4-7.4); Neutrophils % 92.2 % (38.7-73.9); Platelet Count 165 T/CUMM (130-400); Red Blood Count 4.45 MC/CUMM (3.8-5.5); Red Cell Distribution Width 15.8 % (9.3-17.3); White Blood Count 14.2 T/CUMM (4-12)
[2018-03-14 16:25] LABS: Alanine Aminotransferase 57 U/L (16-61); Alkaline Phosphatase 107 U/L (45-117); Aspartate Amino Transferase 100 U/L (0-37); Blood Urea Nitrogen 72 MG/DL (7-18); Calcium 9.2 MG/DL (8.5-10.1); Glucose 253 MG/DL (74-106); Sodium 136 MMOL/L (136-145); Total Protein 10.2 G/DL (6.4-8.3)
[2018-03-14 16:31] LABS: Lactic Acid 2.2 MMOL/L (0.4-2.0)
[2018-03-14 16:34] LABS: Potassium 6.6 MMOL/L (3.5-5.1)
[2018-03-14] MEDS ORDERED: CALCIUM GLUCONATE 2,000 MG in SODIUM CHLORIDE 0.9% 100 ML IV ONE (16:37)
[2018-03-14] MEDS ORDERED: INSULIN REGULAR 100 UNIT/ML SUBCUT STA (16:37)
[2018-03-14] MEDS ORDERED: DEXTROSE 50% 25 GM/50 ML VIAL IV PRN ×2 (16:52→23:38)
[2018-03-14] MEDS ORDERED: ONDANSETRON 4 MG/2 ML VIAL IV PRN (16:52)
[2018-03-14] MEDS ORDERED: ACETAMINOPHEN 325 MG TABLET PO PRN ×2 (16:52→23:40)
[2018-03-14] MEDS ORDERED: GLUCAGON 1 MG VIAL IM PRN ×2 (16:52→23:38)
[2018-03-14] MEDS ORDERED: ENOXAPARIN 30 MG/0.3 ML SYRINGE SUBCUT SCH (17:00)
[2018-03-14] MEDS ORDERED: SODIUM CHLORIDE 0.9% 1,000 ML IV SCH (17:00)
[2018-03-14 17:14] LABS: Sedimentation Rate-Westergren 45 MM/HR (0-20)
[2018-03-14 17:30] LABS: Band Neutrophils 27 % (0-10); Lymphocytes 6 % (20-55); Platelet Estimate Normal; Segmented Neutrophils 66 % (50-85); Total Cells Counted 100
[2018-03-14] MEDS: INSULIN GLARGINE 100 UNIT/ML SUBCUT SCH (21:42)
[2018-03-14] MEDS: DOCUSATE SODIUM 100 MG CAPSULE PO SCH (23:01)
[2018-03-14] MEDS ORDERED: LACTULOSE 20 GM/30 ML UDCUP PO PRN (23:40)
[2018-03-14] MEDS ORDERED: cloNIDine 0.1 MG TABLET PO PRN (23:40)
[2018-03-15] MEDS ORDERED: methylPREDNISolone SOD SUC 40 MG/1 ML VIAL IV SCH (01:00)
[2018-03-15 04:43] LABS: Basophils % 0.3 % (0.0-0.8); Eosinophils % 0.4 % (0.00-10.9); Hematocrit 32.9 VOL% (42.0-52.0); Hemoglobin 10.2 GM/DL (14.0-18.0); Immature Granulocytes % 1.7 %; Immature Granulocytes Absolute 0.19 #; Lymphocytes # 0.7 10*3/uL (1.4-4.0); Lymphocytes % 6.2 % (21.2-54.2); Mean Corpuscular Hemoglobin 28 PG (27-34); Mean Corpuscular Volume 90.4 FL (87-102); Mean Platelet Volume 10.4 FL (9.6-12.0); Monocytes # 0.8 10*3/uL (0.11-0.8); Monocytes % 7.1 % (1.7-12.7); Neutrophils # 9.5 10*3/uL (1.4-7.4); Neutrophils % 84.3 % (38.7-73.9); Platelet Count 105 T/CUMM (130-400); Red Blood Count 3.64 MC/CUMM (3.8-5.5); Red Cell Distribution Width 15.5 % (9.3-17.3); White Blood Count 11.2 T/CUMM (4-12)
[2018-03-15] MEDS: INSULIN GLARGINE 100 UNIT/ML SUBCUT SCH ×3 (04:51→22:40)
[2018-03-15] MEDS: DOCUSATE SODIUM 100 MG CAPSULE PO SCH ×5 (04:55→22:42)
[2018-03-15 05:09] LABS: Albumin 3.2 G/DL (3.4-5.0); Bilirubin,Total 0.9 MG/DL (0.2-1.0); Calcium 8.7 MG/DL (8.5-10.1); Osmolality,Calculated 298.7 MOS/KG (273-304); Potassium 5.5 MMOL/L (3.5-5.1)
[2018-03-15] MEDS: LEVOTHYROXINE 100 MCG TABLET PO SCH (06:45)
[2018-03-15] MEDS: ALBUTEROL/IPRATROPIUM 3 ML NEB RESP TX SCH ×2 (07:10→14:30)
[2018-03-15 07:17] LABS: Band Neutrophils 31 % (0-10); Eosinophils 1 % (0-10); Lymphocytes 5 % (20-55); Metamyelocytes 11 %; Myelocytes 9 %; Segmented Neutrophils 34 % (50-85); Total Cells Counted 100
[2018-03-15 07:18] LABS: Hypochromasia Slight; Platelet Estimate Decreased
[2018-03-15] MEDS ORDERED: VANCOMYCIN INJ 1,000 MG in SODIUM CHLORIDE 0.9% 250 ML IV PRN (08:24)
[2018-03-15] MEDS ORDERED: PANTOPRAZOLE 40 MG TABLET PO SCH (09:00)
[2018-03-15] MEDS ORDERED: ASPIRIN CHEW 81 MG TABLET PO SCH (09:00)
[2018-03-15] MEDS ORDERED: FERROUS SULFATE 325 MG TABLET PO SCH (09:00)
[2018-03-15] MEDS ORDERED: SODIUM CHLORIDE 0.9% 250 ML IV ONE ×2 (09:28→09:29)
[2018-03-15] MEDS: ESCITALOPRAM 10 MG TABLET PO SCH (10:52)
[2018-03-15] MEDS: CALCIUM ACETATE 667 MG CAPSULE PO SCH ×3 (10:52→18:43)
[2018-03-15] MEDS: cloNIDine 0.1 MG TABLET PO SCH ×4 (10:52→22:41)
[2018-03-15] MEDS: FEXOFENADINE 180 MG TABLET PO SCH (10:52)
[2018-03-15] MEDS: TRIAMCINOLONE 0.1% CREAM 15 GM TUBE TOP SCH ×2 (10:53→22:40)
[2018-03-15] MEDS: INSULIN REGULAR 100 UNIT/ML SUBCUT SCH ×4 (10:54→22:40)
[2018-03-15] MEDS ORDERED: VANCOMYCIN INJ 1,500 MG in SODIUM CHLORIDE 0.9% 500 ML IV ONE (12:00)
[2018-03-15] MEDS: cefTRIAXone 1,000 MG in SYRINGE 1 EACH IV SCH (16:55)
[2018-03-15] MEDS: GABAPENTIN 100 MG CAPSULE PO SCH ×2 (18:42→22:41)
[2018-03-16] MEDS: ALBUTEROL/IPRATROPIUM 3 ML NEB RESP TX SCH ×4 (00:59→22:44)
[2018-03-16] MEDS: PANTOPRAZOLE 40 MG VIAL IV SCH ×3 (03:39→22:47)
[2018-03-16] MEDS: LEVOTHYROXINE 100 MCG TABLET PO SCH (07:00)
[2018-03-16] MEDS ORDERED: VANCOMYCIN INJ 1,000 MG in SODIUM CHLORIDE 0.9% 250 ML IV ONE (09:00)
[2018-03-16] MEDS: CALCIUM ACETATE 667 MG CAPSULE PO SCH ×3 (10:21→18:09)
[2018-03-16] MEDS: FEXOFENADINE 180 MG TABLET PO SCH (10:22)
[2018-03-16] MEDS: cloNIDine 0.1 MG TABLET PO SCH ×3 (10:23→22:44)
[2018-03-16] MEDS: ESCITALOPRAM 10 MG TABLET PO SCH (10:23)
[2018-03-16] MEDS: INSULIN REGULAR 100 UNIT/ML SUBCUT SCH ×4 (10:29→22:48)
[2018-03-16] MEDS: INSULIN GLARGINE 100 UNIT/ML SUBCUT SCH ×2 (10:30→22:47)
[2018-03-16] MEDS: TRIAMCINOLONE 0.1% CREAM 15 GM TUBE TOP SCH ×2 (10:34→22:46)
[2018-03-16] MEDS: cefTRIAXone 1,000 MG in SYRINGE 1 EACH IV SCH (10:42)
[2018-03-16] MEDS: DOCUSATE SODIUM 100 MG CAPSULE PO SCH ×2 (10:51→22:45)
[2018-03-16] MEDS: GABAPENTIN 100 MG CAPSULE PO SCH ×2 (15:17→22:44)
[2018-03-16] MEDS: BISACODYL 5 MG TABLET PO SCH ×3 (15:28→22:44)
[2018-03-16] MEDS ORDERED: POLYETHYLENE GLYCOL 3350/ELECTROLYTES 4,000 ML BOTTLE PO ONE (18:00)
[2018-03-16] MEDS ORDERED: MAGNESIUM CITRATE 300 ML BOTTLE PO ONE (21:00)
[2018-03-16] MEDS: POLYVINYL ALCOHOL 1.4% OPH SOLN 15 ML BOTTLE BOTH EYES PRN (22:46)
[2018-03-17 05:13] LABS: Basophils % 0.2 % (0.0-0.8); Eosinophils # 0.7 10*3/uL (0.0-0.87); Hematocrit 27.9 VOL% (42.0-52.0); Hemoglobin 8.9 GM/DL (14.0-18.0); Immature Granulocytes % 0.3 %; Immature Granulocytes Absolute 0.03 #; Lymphocytes # 0.8 10*3/uL (1.4-4.0); Lymphocytes % 8.9 % (21.2-54.2); Mean Corpuscular HGB Conc 31.9 GM/DL (32-36); Mean Corpuscular Hemoglobin 28 PG (27-34); Mean Corpuscular Volume 86.4 FL (87-102); Mean Platelet Volume 11.5 FL (9.6-12.0); Monocytes # 0.6 10*3/uL (0.11-0.8); Monocytes % 6.1 % (1.7-12.7); Neutrophils # 7.3 10*3/uL (1.4-7.4); Neutrophils % 77.5 % (38.7-73.9); Platelet Count 100 T/CUMM (130-400); Red Blood Count 3.23 MC/CUMM (3.8-5.5); Red Cell Distribution Width 14.7 % (9.3-17.3); White Blood Count 9.4 T/CUMM (4-12)
[2018-03-17 05:36] LABS: Band Neutrophils 1 % (0-10); Eosinophils 3 % (0-10); Hypochromasia 1+; Lymphocytes 4 % (20-55); Microcytosis Slight; Ovalocytes Slight; Segmented Neutrophils 87 % (50-85); Total Cells Counted 100
[2018-03-17 05:37] LABS: Platelet Estimate Adequate
[2018-03-17] MEDS: BISACODYL 5 MG TABLET PO SCH (05:38)
[2018-03-17 05:44] LABS: Calcium 8.1 MG/DL (8.5-10.1); Potassium 4.6 MMOL/L (3.5-5.1)
[2018-03-17] MEDS: LEVOTHYROXINE 100 MCG TABLET PO SCH (07:04)
[2018-03-17] MEDS: ALBUTEROL/IPRATROPIUM 3 ML NEB RESP TX SCH ×3 (08:16→23:00)
[2018-03-17] MEDS ORDERED: LIDOCAINE 2% 5 ML VIAL ONE (10:00)
[2018-03-17] MEDS ORDERED: PROPOFOL 200 MG/20 ML VIAL IV ONE (10:00)
[2018-03-17] MEDS: INSULIN REGULAR 100 UNIT/ML SUBCUT SCH ×4 (10:48→21:45)
[2018-03-17] MEDS: CALCIUM ACETATE 667 MG CAPSULE PO SCH ×3 (10:49→17:42)
[2018-03-17] MEDS: DOCUSATE SODIUM 100 MG CAPSULE PO SCH ×2 (10:50→21:52)
[2018-03-17] MEDS: ESCITALOPRAM 10 MG TABLET PO SCH (10:50)
[2018-03-17] MEDS: cloNIDine 0.1 MG TABLET PO SCH ×2 (10:50→21:52)
[2018-03-17] MEDS: FEXOFENADINE 180 MG TABLET PO SCH (10:50)
[2018-03-17] MEDS: TRIAMCINOLONE 0.1% CREAM 15 GM TUBE TOP SCH ×2 (10:50→21:53)
[2018-03-17] MEDS: cefTRIAXone 1,000 MG in SYRINGE 1 EACH IV SCH (10:51)
[2018-03-17] MEDS: INSULIN GLARGINE 100 UNIT/ML SUBCUT SCH ×2 (10:52→21:52)
[2018-03-17] MEDS: PANTOPRAZOLE 40 MG VIAL IV SCH ×2 (10:59→21:54)
[2018-03-17] MEDS: GABAPENTIN 100 MG CAPSULE PO SCH ×2 (17:42→21:52)
[2018-03-18 04:20] LABS: Basophils % 0.3 % (0.0-0.8); Eosinophils # 0.8 10*3/uL (0.0-0.87); Eosinophils % 10.9 % (0.00-10.9); Hematocrit 27.9 VOL% (42.0-52.0); Hemoglobin 8.7 GM/DL (14.0-18.0); Immature Granulocytes % 0.9 %; Immature Granulocytes Absolute 0.07 #; Lymphocytes % 13.3 % (21.2-54.2); Mean Corpuscular HGB Conc 31.2 GM/DL (32-36); Mean Corpuscular Hemoglobin 28 PG (27-34); Mean Corpuscular Volume 88.9 FL (87-102); Mean Platelet Volume 10.1 FL (9.6-12.0); Monocytes # 0.6 10*3/uL (0.11-0.8); Monocytes % 8.5 % (1.7-12.7); Neutrophils % 66.1 % (38.7-73.9); Platelet Count 111 T/CUMM (130-400); Red Blood Count 3.14 MC/CUMM (3.8-5.5); Red Cell Distribution Width 14.6 % (9.3-17.3); White Blood Count 7.5 T/CUMM (4-12)
[2018-03-18] MEDS: LEVOTHYROXINE 100 MCG TABLET PO SCH (05:32)
[2018-03-18] MEDS: ALBUTEROL/IPRATROPIUM 3 ML NEB RESP TX SCH ×2 (06:45→14:00)
[2018-03-18] MEDS ORDERED: VANCOMYCIN INJ 1,000 MG in SODIUM CHLORIDE 0.9% 250 ML IV PRN (08:00)
[2018-03-18 08:15] LABS: Calcium 7.5 MG/DL (8.5-10.1); Osmolality,Calculated 290.8 MOS/KG (273-304); Potassium 4.8 MMOL/L (3.5-5.1)
[2018-03-18] MEDS: DOCUSATE SODIUM 100 MG CAPSULE PO SCH ×2 (08:35→21:46)
[2018-03-18] MEDS: PANTOPRAZOLE 40 MG VIAL IV SCH ×2 (08:35→21:43)
[2018-03-18] MEDS: FEXOFENADINE 180 MG TABLET PO SCH (08:35)
[2018-03-18] MEDS: CALCIUM ACETATE 667 MG CAPSULE PO SCH ×3 (08:35→16:08)
[2018-03-18] MEDS: cloNIDine 0.1 MG TABLET PO SCH ×2 (08:35→21:43)
[2018-03-18] MEDS: ESCITALOPRAM 10 MG TABLET PO SCH (08:35)
[2018-03-18] MEDS: INSULIN GLARGINE 100 UNIT/ML SUBCUT SCH ×2 (08:36→21:43)
[2018-03-18] MEDS: INSULIN REGULAR 100 UNIT/ML SUBCUT SCH ×4 (08:37→21:46)
[2018-03-18] MEDS: TRIAMCINOLONE 0.1% CREAM 15 GM TUBE TOP SCH ×2 (08:37→21:46)
[2018-03-18] MEDS: GABAPENTIN 100 MG CAPSULE PO SCH ×2 (16:08→21:43)
[2018-03-18] MEDS: BACITRACIN OINT 0.9 GM PACK TOP SCH (21:46)
[2018-03-19] MEDS: ALBUTEROL/IPRATROPIUM 3 ML NEB RESP TX SCH ×3 (00:27→14:26)
[2018-03-19 04:38] LABS: Basophils % 0.3 % (0.0-0.8); Eosinophils # 0.9 10*3/uL (0.0-0.87); Hematocrit 27.7 VOL% (42.0-52.0); Hemoglobin 8.6 GM/DL (14.0-18.0); Immature Granulocytes Absolute 0.29 #; Lymphocytes # 1.1 10*3/uL (1.4-4.0); Lymphocytes % 18.6 % (21.2-54.2); Mean Corpuscular Hemoglobin 27 PG (27-34); Mean Corpuscular Volume 87.9 FL (87-102); Mean Platelet Volume 10.6 FL (9.6-12.0); Monocytes # 0.5 10*3/uL (0.11-0.8); Monocytes % 8.5 % (1.7-12.7); Neutrophils # 3.1 10*3/uL (1.4-7.4); Neutrophils % 52.6 % (38.7-73.9); Platelet Count 150 T/CUMM (130-400); Red Blood Count 3.15 MC/CUMM (3.8-5.5); White Blood Count 5.9 T/CUMM (4-12)
[2018-03-19 04:53] LABS: Calcium 7.4 MG/DL (8.5-10.1); Osmolality,Calculated 289.1 MOS/KG (273-304); Potassium 4.8 MMOL/L (3.5-5.1)
[2018-03-19 05:14] LABS: Hypochromasia 1+; Platelet Estimate Adequate
[2018-03-19 05:15] LABS: Ovalocytes Slight
[2018-03-19] MEDS: LEVOTHYROXINE 100 MCG TABLET PO SCH (05:59)
[2018-03-19] MEDS: ESCITALOPRAM 10 MG TABLET PO SCH (08:56)
[2018-03-19] MEDS: DOCUSATE SODIUM 100 MG CAPSULE PO SCH ×2 (08:56→22:38)
[2018-03-19] MEDS: cloNIDine 0.1 MG TABLET PO SCH ×2 (08:57→22:37)
[2018-03-19] MEDS: CALCIUM ACETATE 667 MG CAPSULE PO SCH ×3 (08:57→17:26)
[2018-03-19] MEDS: BACITRACIN OINT 0.9 GM PACK TOP SCH ×2 (08:57→22:37)
[2018-03-19] MEDS: FEXOFENADINE 180 MG TABLET PO SCH (08:57)
[2018-03-19] MEDS: INSULIN GLARGINE 100 UNIT/ML SUBCUT SCH ×2 (08:59→22:39)
[2018-03-19] MEDS: INSULIN REGULAR 100 UNIT/ML SUBCUT SCH ×4 (09:07→22:38)
[2018-03-19] MEDS ORDERED: VANCOMYCIN INJ 1,000 MG in SODIUM CHLORIDE 0.9% 250 ML IV ONE (12:00)
[2018-03-19] MEDS: TRIAMCINOLONE 0.1% CREAM 15 GM TUBE TOP SCH ×2 (12:35→22:38)
[2018-03-19] MEDS: PANTOPRAZOLE 40 MG VIAL IV SCH ×2 (13:52→22:39)
[2018-03-19] MEDS: GABAPENTIN 100 MG CAPSULE PO SCH ×2 (17:27→22:38)
[2018-03-20] MEDS: ALBUTEROL/IPRATROPIUM 3 ML NEB RESP TX SCH ×3 (00:26→14:10)
[2018-03-20 04:12] LABS: Basophils % 0.4 % (0.0-0.8); Eosinophils # 1.1 10*3/uL (0.0-0.87); Eosinophils % 19.9 % (0.00-10.9); Hemoglobin 8.7 GM/DL (14.0-18.0); Immature Granulocytes % 4.7 %; Immature Granulocytes Absolute 0.26 #; Lymphocytes # 0.9 10*3/uL (1.4-4.0); Lymphocytes % 16.1 % (21.2-54.2); Mean Corpuscular HGB Conc 32.2 GM/DL (32-36); Mean Corpuscular Hemoglobin 27 PG (27-34); Mean Corpuscular Volume 84.9 FL (87-102); Mean Platelet Volume 10.2 FL (9.6-12.0); Monocytes # 0.5 10*3/uL (0.11-0.8); Monocytes % 9.2 % (1.7-12.7); Neutrophils # 2.8 10*3/uL (1.4-7.4); Neutrophils % 49.7 % (38.7-73.9); Platelet Count 187 T/CUMM (130-400); Red Blood Count 3.18 MC/CUMM (3.8-5.5); Red Cell Distribution Width 14.9 % (9.3-17.3); White Blood Count 5.5 T/CUMM (4-12)
[2018-03-20 04:48] LABS: Band Neutrophils 1 % (0-10); Eosinophils 23 % (0-10); Lymphocytes 20 % (20-55); Segmented Neutrophils 51 % (50-85); Total Cells Counted 100
[2018-03-20 04:49] LABS: Hypochromasia 1+; Ovalocytes Slight; Platelet Estimate Adequate
[2018-03-20 04:55] LABS: Calcium 7.2 MG/DL (8.5-10.1); Osmolality,Calculated 294.1 MOS/KG (273-304); Potassium 4.9 MMOL/L (3.5-5.1)
[2018-03-20] MEDS ORDERED: ceFAZolin 2,000 MG in PREMIX 1 EACH IV ONE (06:30)
[2018-03-20] MEDS: INSULIN GLARGINE 100 UNIT/ML SUBCUT SCH ×2 (09:50→22:14)
[2018-03-20] MEDS: TRIAMCINOLONE 0.1% CREAM 15 GM TUBE TOP SCH ×2 (10:00→21:57)
[2018-03-20] MEDS: CALCIUM ACETATE 667 MG CAPSULE PO SCH ×3 (10:10→20:42)
[2018-03-20] MEDS: INSULIN REGULAR 100 UNIT/ML SUBCUT SCH ×3 (10:10→21:58)
[2018-03-20] MEDS: BACITRACIN OINT 0.9 GM PACK TOP SCH ×2 (10:10→21:57)
[2018-03-20] MEDS: DOCUSATE SODIUM 100 MG CAPSULE PO SCH ×2 (10:11→21:59)
[2018-03-20] MEDS: cloNIDine 0.1 MG TABLET PO SCH ×2 (10:39→21:57)
[2018-03-20] MEDS ORDERED: BUPIVACAINE 0.25% /EPI 10 ML VIAL ONE (12:07)
[2018-03-20] MEDS ORDERED: HEPARIN 5,000 UNIT/1 ML VIAL ONE (12:07)
[2018-03-20] MEDS ORDERED: LIDOCAINE 1%/EPI INJ 20 ML VIAL ONE (12:07)
[2018-03-20] MEDS: TOBRAMYCIN 0.3% OPH SOLN 5 ML BOTTLE RIGHT EYE SCH ×2 (12:13→20:30)
[2018-03-20] MEDS: LEVOTHYROXINE 100 MCG TABLET PO SCH (12:13)
[2018-03-20] MEDS: SODIUM CHLORIDE 0.9% 250 ML IV SCH (12:34)
[2018-03-20] MEDS: PANTOPRAZOLE 40 MG VIAL IV SCH ×2 (12:40→21:56)
[2018-03-20] MEDS ORDERED: MIDAZOLAM 2 MG/2 ML VIAL ONE (13:34)
[2018-03-20] MEDS ORDERED: PROPOFOL 200 MG/20 ML VIAL IV ONE (13:34)
[2018-03-20] MEDS ORDERED: PHENYLEPHRINE 1 MG/10 ML SYRINGE IV ONE (13:34)
[2018-03-20] MEDS ORDERED: fentaNYL 100 MCG/2 ML VIAL ONE (13:34)
[2018-03-20] MEDS ORDERED: HEPARIN 10,000 UNIT/10 ML VIAL IV PRN (15:58)
[2018-03-20] MEDS ORDERED: VANCOMYCIN INJ 1,000 MG in SODIUM CHLORIDE 0.9% 250 ML IV ONE (18:00)
[2018-03-20] MEDS: GABAPENTIN 100 MG CAPSULE PO SCH ×2 (20:43→21:57)
[2018-03-20] MEDS: ESCITALOPRAM 10 MG TABLET PO SCH (21:57)
[2018-03-20] MEDS: FEXOFENADINE 180 MG TABLET PO SCH (21:57)
[2018-03-20] MEDS: POLYVINYL ALCOHOL 1.4% OPH SOLN 15 ML BOTTLE BOTH EYES PRN (21:57)
[2018-03-20] MEDS: CEFTAROLINE 400 MG in SODIUM CHLORIDE 0.9% 100 ML IV SCH (22:12)
[2018-03-21] MEDS: ALBUTEROL/IPRATROPIUM 3 ML NEB RESP TX SCH ×3 (00:59→14:00)
[2018-03-21 06:32] LABS: Basophils % 0.2 % (0.0-0.8); Eosinophils # 0.9 10*3/uL (0.0-0.87); Eosinophils % 9.2 % (0.00-10.9); Hematocrit 29.4 VOL% (42.0-52.0); Hemoglobin 9.1 GM/DL (14.0-18.0); Immature Granulocytes % 1.9 %; Immature Granulocytes Absolute 0.19 #; Lymphocytes # 1.2 10*3/uL (1.4-4.0); Lymphocytes % 11.6 % (21.2-54.2); Mean Corpuscular Hemoglobin 27 PG (27-34); Mean Corpuscular Volume 88.6 FL (87-102); Mean Platelet Volume 9.9 FL (9.6-12.0); Monocytes # 0.5 10*3/uL (0.11-0.8); Monocytes % 5.3 % (1.7-12.7); Neutrophils # 7.2 10*3/uL (1.4-7.4); Neutrophils % 71.8 % (38.7-73.9); Platelet Count 216 T/CUMM (130-400); Red Blood Count 3.32 MC/CUMM (3.8-5.5); Red Cell Distribution Width 15.2 % (9.3-17.3); White Blood Count 10.1 T/CUMM (4-12)
[2018-03-21 07:05] LABS: Calcium 6.7 MG/DL (8.5-10.1); Osmolality,Calculated 291.7 MOS/KG (273-304); Potassium 5.3 MMOL/L (3.5-5.1)
[2018-03-21] MEDS: LEVOTHYROXINE 100 MCG TABLET PO SCH (07:33)
[2018-03-21] MEDS: INSULIN REGULAR 100 UNIT/ML SUBCUT SCH ×4 (07:55→22:35)
[2018-03-21] MEDS: CEFTAROLINE 400 MG in SODIUM CHLORIDE 0.9% 100 ML IV SCH ×2 (09:20→20:55)
[2018-03-21] MEDS: DOCUSATE SODIUM 100 MG CAPSULE PO SCH ×2 (09:23→20:53)
[2018-03-21] MEDS: CALCIUM ACETATE 667 MG CAPSULE PO SCH ×3 (09:23→16:16)
[2018-03-21] MEDS: ESCITALOPRAM 10 MG TABLET PO SCH (09:24)
[2018-03-21] MEDS: FEXOFENADINE 180 MG TABLET PO SCH (09:24)
[2018-03-21] MEDS: PANTOPRAZOLE 40 MG VIAL IV SCH ×2 (09:24→20:53)
[2018-03-21] MEDS: INSULIN GLARGINE 100 UNIT/ML SUBCUT SCH ×2 (09:24→20:56)
[2018-03-21] MEDS: cloNIDine 0.1 MG TABLET PO SCH ×2 (09:24→20:53)
[2018-03-21] MEDS: ZINC OXIDE PASTE 113 GM TUBE TOP PRN (09:27)
[2018-03-21] MEDS: TRIAMCINOLONE 0.1% CREAM 15 GM TUBE TOP SCH ×2 (09:28→22:36)
[2018-03-21] MEDS: SODIUM CHLORIDE 0.9% 250 ML IV SCH ×2 (09:29→16:15)
[2018-03-21] MEDS: TOBRAMYCIN 0.3% OPH SOLN 5 ML BOTTLE RIGHT EYE SCH ×2 (09:29→22:36)
[2018-03-21] MEDS: BACITRACIN OINT 0.9 GM PACK TOP SCH ×2 (09:32→20:53)
[2018-03-21] MEDS ORDERED: VANCOMYCIN INJ 1,000 MG in SODIUM CHLORIDE 0.9% 250 ML IV ONE (12:00)
[2018-03-21] MEDS: GABAPENTIN 100 MG CAPSULE PO SCH ×2 (16:16→20:53)
[2018-03-21] MEDS: hydrOXYzine HCL 25 MG TABLET PO PRN (16:19)
[2018-03-22] MEDS: ALBUTEROL/IPRATROPIUM 3 ML NEB RESP TX SCH ×4 (00:03→23:06)
[2018-03-22] MEDS: SODIUM CHLORIDE 0.9% 250 ML IV SCH ×2 (02:27→16:11)
[2018-03-22] MEDS: LEVOTHYROXINE 100 MCG TABLET PO SCH (05:31)
[2018-03-22 06:35] LABS: Basophils % 0.4 % (0.0-0.8); Eosinophils # 0.6 10*3/uL (0.0-0.87); Eosinophils % 11.4 % (0.00-10.9); Hematocrit 26.8 VOL% (42.0-52.0); Hemoglobin 8.5 GM/DL (14.0-18.0); Immature Granulocytes % 2.1 %; Immature Granulocytes Absolute 0.11 #; Lymphocytes % 18.3 % (21.2-54.2); Mean Corpuscular HGB Conc 31.7 GM/DL (32-36); Mean Corpuscular Hemoglobin 28 PG (27-34); Mean Corpuscular Volume 86.7 FL (87-102); Mean Platelet Volume 9.2 FL (9.6-12.0); Monocytes # 0.5 10*3/uL (0.11-0.8); Monocytes % 9.5 % (1.7-12.7); Neutrophils # 3.1 10*3/uL (1.4-7.4); Neutrophils % 58.3 % (38.7-73.9); Platelet Count 204 T/CUMM (130-400); Red Blood Count 3.09 MC/CUMM (3.8-5.5); Red Cell Distribution Width 15.3 % (9.3-17.3); White Blood Count 5.3 T/CUMM (4-12)
[2018-03-22 06:48] LABS: Calcium 7.4 MG/DL (8.5-10.1); Osmolality,Calculated 283.7 MOS/KG (273-304); Potassium 4.9 MMOL/L (3.5-5.1)
[2018-03-22 07:22] LABS: Band Neutrophils 4 % (0-10); Eosinophils 12 % (0-10); Lymphocytes 18 % (20-55); Platelet Estimate Normal; Segmented Neutrophils 63 % (50-85); Total Cells Counted 100
[2018-03-22] MEDS: INSULIN REGULAR 100 UNIT/ML SUBCUT SCH ×4 (08:38→23:09)
[2018-03-22] MEDS: PANTOPRAZOLE 40 MG VIAL IV SCH ×2 (08:39→23:06)
[2018-03-22] MEDS: TOBRAMYCIN 0.3% OPH SOLN 5 ML BOTTLE RIGHT EYE SCH ×2 (09:16→23:10)
[2018-03-22] MEDS: ZINC OXIDE PASTE 113 GM TUBE TOP PRN (09:16)
[2018-03-22] MEDS: TRIAMCINOLONE 0.1% CREAM 15 GM TUBE TOP SCH ×2 (09:16→23:15)
[2018-03-22] MEDS: cloNIDine 0.1 MG TABLET PO SCH ×2 (09:17→23:05)
[2018-03-22] MEDS: DOCUSATE SODIUM 100 MG CAPSULE PO SCH ×2 (09:17→23:06)
[2018-03-22] MEDS: ESCITALOPRAM 10 MG TABLET PO SCH (09:17)
[2018-03-22] MEDS: BACITRACIN OINT 0.9 GM PACK TOP SCH ×2 (09:17→23:08)
[2018-03-22] MEDS: FEXOFENADINE 180 MG TABLET PO SCH (09:17)
[2018-03-22] MEDS: INSULIN GLARGINE 100 UNIT/ML SUBCUT SCH ×2 (09:18→23:08)
[2018-03-22] MEDS: CALCIUM ACETATE 667 MG CAPSULE PO SCH ×3 (09:20→16:10)
[2018-03-22] MEDS: CEFTAROLINE 400 MG in SODIUM CHLORIDE 0.9% 100 ML IV SCH (11:55)
[2018-03-22] MEDS: GABAPENTIN 100 MG CAPSULE PO SCH ×2 (16:11→23:05)
[2018-03-22] MEDS: hydrOXYzine HCL 25 MG TABLET PO PRN (18:05)
[2018-03-23] MEDS: CEFTAROLINE 400 MG in SODIUM CHLORIDE 0.9% 100 ML IV SCH ×3 (01:26→21:05)
[2018-03-23] MEDS: LEVOTHYROXINE 100 MCG TABLET PO SCH (06:39)
[2018-03-23] MEDS: ALBUTEROL/IPRATROPIUM 3 ML NEB RESP TX SCH ×3 (07:38→23:48)
[2018-03-23] MEDS: INSULIN REGULAR 100 UNIT/ML SUBCUT SCH ×3 (09:02→17:12)
[2018-03-23] MEDS: SODIUM CHLORIDE 0.9% 250 ML IV SCH ×2 (09:02→17:12)
[2018-03-23] MEDS: CALCIUM ACETATE 667 MG CAPSULE PO SCH ×3 (10:36→17:21)
[2018-03-23] MEDS: DOCUSATE SODIUM 100 MG CAPSULE PO SCH ×2 (10:36→21:05)
[2018-03-23] MEDS: INSULIN GLARGINE 100 UNIT/ML SUBCUT SCH (10:36)
[2018-03-23] MEDS: cloNIDine 0.1 MG TABLET PO SCH ×2 (10:36→21:06)
[2018-03-23] MEDS: FEXOFENADINE 180 MG TABLET PO SCH (10:36)
[2018-03-23] MEDS: ESCITALOPRAM 10 MG TABLET PO SCH (10:36)
[2018-03-23] MEDS: BACITRACIN OINT 0.9 GM PACK TOP SCH ×2 (10:36→21:06)
[2018-03-23] MEDS: TOBRAMYCIN 0.3% OPH SOLN 5 ML BOTTLE RIGHT EYE SCH ×2 (10:37→21:06)
[2018-03-23] MEDS: TRIAMCINOLONE 0.1% CREAM 15 GM TUBE TOP SCH ×2 (10:37→21:06)
[2018-03-23] MEDS: PANTOPRAZOLE 40 MG VIAL IV SCH ×2 (10:37→21:07)
[2018-03-23] MEDS ORDERED: DEXTROSE 50% 25 GM/50 ML VIAL IV PRN (12:20)
[2018-03-23] MEDS ORDERED: GLUCAGON 1 MG VIAL IM PRN (12:20)
[2018-03-23] MEDS: GABAPENTIN 100 MG CAPSULE PO SCH ×2 (17:26→21:06)
[2018-03-23] MEDS ORDERED: HALOPERIDOL 5 MG/ML AMP IV PRN (20:56)
[2018-03-24] MEDS: INSULIN GLARGINE 100 UNIT/ML SUBCUT SCH ×3 (03:16→21:48)
[2018-03-24] MEDS: INSULIN REGULAR 100 UNIT/ML SUBCUT SCH ×5 (03:16→21:48)
[2018-03-24] MEDS: LEVOTHYROXINE 100 MCG TABLET PO SCH (06:23)
[2018-03-24] MEDS: ALBUTEROL/IPRATROPIUM 3 ML NEB RESP TX SCH ×3 (07:40→22:42)
[2018-03-24] MEDS: CALCIUM ACETATE 667 MG CAPSULE PO SCH ×4 (14:34→16:15)
[2018-03-24] MEDS: CEFTAROLINE 400 MG in SODIUM CHLORIDE 0.9% 100 ML IV SCH ×2 (14:34→21:48)
[2018-03-24] MEDS: DOCUSATE SODIUM 100 MG CAPSULE PO SCH ×2 (14:35→21:47)
[2018-03-24] MEDS: ESCITALOPRAM 10 MG TABLET PO SCH (14:35)
[2018-03-24] MEDS: FEXOFENADINE 180 MG TABLET PO SCH (14:35)
[2018-03-24] MEDS: cloNIDine 0.1 MG TABLET PO SCH ×2 (14:35→21:48)
[2018-03-24] MEDS: BACITRACIN OINT 0.9 GM PACK TOP SCH ×2 (14:35→21:49)
[2018-03-24] MEDS: PANTOPRAZOLE 40 MG VIAL IV SCH ×2 (14:35→21:50)
[2018-03-24] MEDS: POLYVINYL ALCOHOL 1.4% OPH SOLN 15 ML BOTTLE BOTH EYES PRN (14:38)
[2018-03-24] MEDS: TOBRAMYCIN 0.3% OPH SOLN 5 ML BOTTLE RIGHT EYE SCH ×2 (14:39→21:50)
[2018-03-24] MEDS: TRIAMCINOLONE 0.1% CREAM 15 GM TUBE TOP SCH ×2 (14:40→21:50)
[2018-03-24] MEDS: GABAPENTIN 100 MG CAPSULE PO SCH ×2 (16:39→21:48)
[2018-03-25] MEDS: LEVOTHYROXINE 100 MCG TABLET PO SCH (06:12)
[2018-03-25] MEDS: ALBUTEROL/IPRATROPIUM 3 ML NEB RESP TX SCH ×2 (07:28→14:29)
[2018-03-25] MEDS: INSULIN REGULAR 100 UNIT/ML SUBCUT SCH ×4 (07:57→21:30)
[2018-03-25] MEDS: PANTOPRAZOLE 40 MG VIAL IV SCH ×2 (08:59→21:32)
[2018-03-25] MEDS: ESCITALOPRAM 10 MG TABLET PO SCH (09:00)
[2018-03-25] MEDS: cloNIDine 0.1 MG TABLET PO SCH ×2 (09:00→21:30)
[2018-03-25] MEDS: TRIAMCINOLONE 0.1% CREAM 15 GM TUBE TOP SCH ×2 (09:00→21:30)
[2018-03-25] MEDS: BACITRACIN OINT 0.9 GM PACK TOP SCH ×2 (09:00→21:30)
[2018-03-25] MEDS: DOCUSATE SODIUM 100 MG CAPSULE PO SCH ×2 (09:00→21:30)
[2018-03-25] MEDS: FEXOFENADINE 180 MG TABLET PO SCH (09:00)
[2018-03-25] MEDS: CALCIUM ACETATE 667 MG CAPSULE PO SCH ×3 (09:00→17:39)
[2018-03-25] MEDS: INSULIN GLARGINE 100 UNIT/ML SUBCUT SCH (09:01)
[2018-03-25] MEDS: TOBRAMYCIN 0.3% OPH SOLN 5 ML BOTTLE RIGHT EYE SCH ×2 (09:01→21:31)
[2018-03-25] MEDS: CEFTAROLINE 400 MG in SODIUM CHLORIDE 0.9% 100 ML IV SCH ×2 (09:20→21:31)
[2018-03-25] MEDS: GABAPENTIN 100 MG CAPSULE PO SCH ×2 (17:40→21:30)
[2018-03-26] MEDS: ALBUTEROL/IPRATROPIUM 3 ML NEB RESP TX SCH ×4 (00:40→23:44)
[2018-03-26] MEDS: LEVOTHYROXINE 100 MCG TABLET PO SCH (06:07)
[2018-03-26 07:31] LABS: Basophils % 0.5 % (0.0-0.8); Eosinophils # 0.4 10*3/uL (0.0-0.87); Eosinophils % 9.7 % (0.00-10.9); Hematocrit 25.9 VOL% (42.0-52.0); Hemoglobin 8.2 GM/DL (14.0-18.0); Immature Granulocytes % 0.5 %; Immature Granulocytes Absolute 0.02 #; Lymphocytes # 0.7 10*3/uL (1.4-4.0); Lymphocytes % 15.7 % (21.2-54.2); Mean Corpuscular HGB Conc 31.7 GM/DL (32-36); Mean Corpuscular Hemoglobin 28 PG (27-34); Mean Corpuscular Volume 87.5 FL (87-102); Mean Platelet Volume 8.9 FL (9.6-12.0); Monocytes # 0.3 10*3/uL (0.11-0.8); Monocytes % 7.4 % (1.7-12.7); Neutrophils # 2.9 10*3/uL (1.4-7.4); Neutrophils % 66.2 % (38.7-73.9); Platelet Count 213 T/CUMM (130-400); Red Blood Count 2.96 MC/CUMM (3.8-5.5); Red Cell Distribution Width 14.8 % (9.3-17.3); White Blood Count 4.3 T/CUMM (4-12)
[2018-03-26 08:07] LABS: Alanine Aminotransferase 15 U/L (16-61); Albumin 2.7 G/DL (3.4-5.0); Alkaline Phosphatase 71 U/L (45-117); Aspartate Amino Transferase 16 U/L (0-37); Bilirubin,Total < 0.39 MG/DL (0.2-1.0); Blood Urea Nitrogen 47 MG/DL (7-18); Calcium 7.1 MG/DL (8.5-10.1); Glucose 103 MG/DL (74-106); Potassium 5.4 MMOL/L (3.5-5.1); Sodium 143 MMOL/L (136-145); Total Protein 8.1 G/DL (6.4-8.3)
[2018-03-26] MEDS: INSULIN REGULAR 100 UNIT/ML SUBCUT SCH ×4 (08:17→21:10)
[2018-03-26] MEDS: ESCITALOPRAM 10 MG TABLET PO SCH (08:58)
[2018-03-26] MEDS: cloNIDine 0.1 MG TABLET PO SCH ×2 (08:58→21:11)
[2018-03-26] MEDS: FEXOFENADINE 180 MG TABLET PO SCH (08:58)
[2018-03-26] MEDS: BACITRACIN OINT 0.9 GM PACK TOP SCH ×2 (08:58→21:11)
[2018-03-26] MEDS: DOCUSATE SODIUM 100 MG CAPSULE PO SCH ×2 (08:58→21:10)
[2018-03-26] MEDS: CALCIUM ACETATE 667 MG CAPSULE PO SCH ×3 (08:58→17:29)
[2018-03-26] MEDS: PANTOPRAZOLE 40 MG VIAL IV SCH ×2 (08:58→21:12)
[2018-03-26] MEDS: TRIAMCINOLONE 0.1% CREAM 15 GM TUBE TOP SCH ×2 (08:59→21:11)
[2018-03-26] MEDS: TOBRAMYCIN 0.3% OPH SOLN 5 ML BOTTLE RIGHT EYE SCH ×2 (08:59→21:12)
[2018-03-26] MEDS: CEFTAROLINE 400 MG in SODIUM CHLORIDE 0.9% 100 ML IV SCH ×2 (09:15→21:11)
[2018-03-26] MEDS ORDERED: ALTEPLASE 2 MG VIAL IV ONE (11:30)
[2018-03-26] MEDS ORDERED: VANCOMYCIN INJ 1,000 MG in SODIUM CHLORIDE 0.9% 250 ML IV ONE (17:00)
[2018-03-26] MEDS: GABAPENTIN 100 MG CAPSULE PO SCH ×2 (17:29→21:10)
[2018-03-27 05:45] LABS: Basophils % 0.5 % (0.0-0.8); Eosinophils # 0.5 10*3/uL (0.0-0.87); Eosinophils % 11.9 % (0.00-10.9); Hematocrit 27.6 VOL% (42.0-52.0); Hemoglobin 8.5 GM/DL (14.0-18.0); Immature Granulocytes % 0.5 %; Immature Granulocytes Absolute 0.02 #; Lymphocytes # 0.7 10*3/uL (1.4-4.0); Lymphocytes % 18.6 % (21.2-54.2); Mean Corpuscular HGB Conc 30.8 GM/DL (32-36); Mean Corpuscular Hemoglobin 28 PG (27-34); Mean Corpuscular Volume 89.3 FL (87-102); Mean Platelet Volume 9.3 FL (9.6-12.0); Monocytes # 0.3 10*3/uL (0.11-0.8); Monocytes % 8.5 % (1.7-12.7); Neutrophils # 2.3 10*3/uL (1.4-7.4); Platelet Count 188 T/CUMM (130-400); Red Blood Count 3.09 MC/CUMM (3.8-5.5); Red Cell Distribution Width 14.8 % (9.3-17.3); White Blood Count 3.9 T/CUMM (4-12)
[2018-03-27 06:04] LABS: Calcium 7.3 MG/DL (8.5-10.1); Osmolality,Calculated 287.4 MOS/KG (273-304)
[2018-03-27] MEDS: LEVOTHYROXINE 100 MCG TABLET PO SCH (06:09)
[2018-03-27 06:11] LABS: Eosinophils 6 % (0-10); Lymphocytes 19 % (20-55); Segmented Neutrophils 67 % (50-85); Total Cells Counted 100
[2018-03-27 06:12] LABS: Hypochromasia 1+; Microcytosis 1+; Ovalocytes Slight
[2018-03-27 06:13] LABS: Platelet Estimate Adequate
[2018-03-27] MEDS: ALBUTEROL/IPRATROPIUM 3 ML NEB RESP TX SCH ×3 (07:34→22:49)
[2018-03-27] MEDS: INSULIN REGULAR 100 UNIT/ML SUBCUT SCH ×4 (07:55→21:29)
[2018-03-27] MEDS: BACITRACIN OINT 0.9 GM PACK TOP SCH ×2 (08:32→21:28)
[2018-03-27] MEDS: CALCIUM ACETATE 667 MG CAPSULE PO SCH ×3 (08:32→16:57)
[2018-03-27] MEDS: FEXOFENADINE 180 MG TABLET PO SCH (08:32)
[2018-03-27] MEDS: PANTOPRAZOLE 40 MG VIAL IV SCH ×2 (08:32→21:31)
[2018-03-27] MEDS: DOCUSATE SODIUM 100 MG CAPSULE PO SCH ×2 (08:32→21:28)
[2018-03-27] MEDS: cloNIDine 0.1 MG TABLET PO SCH ×2 (08:32→21:30)
[2018-03-27] MEDS: ESCITALOPRAM 10 MG TABLET PO SCH (08:32)
[2018-03-27] MEDS: TRIAMCINOLONE 0.1% CREAM 15 GM TUBE TOP SCH ×2 (08:33→21:29)
[2018-03-27] MEDS: CEFTAROLINE 400 MG in SODIUM CHLORIDE 0.9% 100 ML IV SCH ×2 (08:35→21:30)
[2018-03-27] MEDS: TOBRAMYCIN 0.3% OPH SOLN 5 ML BOTTLE RIGHT EYE SCH ×2 (08:41→21:28)
[2018-03-27] MEDS: GABAPENTIN 100 MG CAPSULE PO SCH ×2 (16:57→21:28)
[2018-03-27] MEDS: ZINC OXIDE PASTE 113 GM TUBE TOP PRN (21:28)
[2018-03-28] MEDS: LEVOTHYROXINE 100 MCG TABLET PO SCH (05:34)
[2018-03-28 06:27] LABS: Basophils % 0.7 % (0.0-0.8); Eosinophils # 0.4 10*3/uL (0.0-0.87); Hematocrit 26.7 VOL% (42.0-52.0); Hemoglobin 8.4 GM/DL (14.0-18.0); Immature Granulocytes % 0.2 %; Immature Granulocytes Absolute 0.01 #; Lymphocytes # 0.7 10*3/uL (1.4-4.0); Mean Corpuscular HGB Conc 31.5 GM/DL (32-36); Mean Corpuscular Hemoglobin 28 PG (27-34); Mean Corpuscular Volume 87.8 FL (87-102); Mean Platelet Volume 9.3 FL (9.6-12.0); Monocytes # 0.3 10*3/uL (0.11-0.8); Monocytes % 5.8 % (1.7-12.7); Neutrophils % 69.3 % (38.7-73.9); Platelet Count 200 T/CUMM (130-400); Red Blood Count 3.04 MC/CUMM (3.8-5.5); Red Cell Distribution Width 14.7 % (9.3-17.3); White Blood Count 4.3 T/CUMM (4-12)
[2018-03-28 06:55] LABS: Calcium 6.8 MG/DL (8.5-10.1); Osmolality,Calculated 292.4 MOS/KG (273-304); Potassium 5.2 MMOL/L (3.5-5.1)
[2018-03-28] MEDS: ALBUTEROL/IPRATROPIUM 3 ML NEB RESP TX SCH ×3 (07:51→23:51)
[2018-03-28] MEDS: INSULIN REGULAR 100 UNIT/ML SUBCUT SCH ×4 (07:58→22:19)
[2018-03-28] MEDS: CALCIUM ACETATE 667 MG CAPSULE PO SCH ×3 (08:05→16:05)
[2018-03-28] MEDS: ESCITALOPRAM 10 MG TABLET PO SCH (08:05)
[2018-03-28] MEDS: BACITRACIN OINT 0.9 GM PACK TOP SCH ×2 (08:05→21:00)
[2018-03-28] MEDS: cloNIDine 0.1 MG TABLET PO SCH ×2 (08:05→21:30)
[2018-03-28] MEDS: FEXOFENADINE 180 MG TABLET PO SCH (08:05)
[2018-03-28] MEDS: DOCUSATE SODIUM 100 MG CAPSULE PO SCH ×2 (08:05→21:29)
[2018-03-28] MEDS: PANTOPRAZOLE 40 MG VIAL IV SCH ×2 (08:05→22:32)
[2018-03-28] MEDS: TRIAMCINOLONE 0.1% CREAM 15 GM TUBE TOP SCH ×2 (08:06→21:00)
[2018-03-28] MEDS: TOBRAMYCIN 0.3% OPH SOLN 5 ML BOTTLE RIGHT EYE SCH (08:40)
[2018-03-28] MEDS: CEFTAROLINE 400 MG in SODIUM CHLORIDE 0.9% 100 ML IV SCH ×2 (13:34→21:31)
[2018-03-28] MEDS: GABAPENTIN 100 MG CAPSULE PO SCH ×2 (15:39→21:29)
[2018-03-28] MEDS ORDERED: VANCOMYCIN INJ 1,000 MG in SODIUM CHLORIDE 0.9% 250 ML IV ONE (21:00)
[2018-03-29 06:15] LABS: Basophils # 0.1 10*3/uL (0.0-0.2); Basophils % 1.2 % (0.0-0.8); Eosinophils # 0.4 10*3/uL (0.0-0.87); Eosinophils % 9.5 % (0.00-10.9); Hematocrit 24.7 VOL% (42.0-52.0); Hemoglobin 7.7 GM/DL (14.0-18.0); Immature Granulocytes % 0.5 %; Immature Granulocytes Absolute 0.02 #; Lymphocytes # 0.8 10*3/uL (1.4-4.0); Mean Corpuscular HGB Conc 31.2 GM/DL (32-36); Mean Corpuscular Hemoglobin 27 PG (27-34); Mean Corpuscular Volume 87.9 FL (87-102); Mean Platelet Volume 9.4 FL (9.6-12.0); Monocytes # 0.3 10*3/uL (0.11-0.8); Neutrophils # 2.5 10*3/uL (1.4-7.4); Neutrophils % 61.8 % (38.7-73.9); Platelet Count 176 T/CUMM (130-400); Red Blood Count 2.81 MC/CUMM (3.8-5.5); Red Cell Distribution Width 14.7 % (9.3-17.3); White Blood Count 4.1 T/CUMM (4-12)
[2018-03-29] MEDS: LEVOTHYROXINE 100 MCG TABLET PO SCH (06:43)
[2018-03-29] MEDS: TOBRAMYCIN 0.3% OPH SOLN 5 ML BOTTLE RIGHT EYE SCH ×3 (06:43→23:12)
[2018-03-29 06:55] LABS: Albumin 2.8 G/DL (3.4-5.0); Bilirubin,Total 0.6 MG/DL (0.2-1.0); Calcium 7.1 MG/DL (8.5-10.1); Osmolality,Calculated 287.4 MOS/KG (273-304); Potassium 4.8 MMOL/L (3.5-5.1); Total Protein 7.6 G/DL (6.4-8.3)
[2018-03-29] MEDS: ALBUTEROL/IPRATROPIUM 3 ML NEB RESP TX SCH ×3 (07:27→23:35)
[2018-03-29] MEDS: CEFTAROLINE 400 MG in SODIUM CHLORIDE 0.9% 100 ML IV SCH ×2 (09:19→23:12)
[2018-03-29] MEDS: PANTOPRAZOLE 40 MG VIAL IV SCH ×2 (09:19→23:08)
[2018-03-29] MEDS: BACITRACIN OINT 0.9 GM PACK TOP SCH ×2 (09:19→23:07)
[2018-03-29] MEDS: CALCIUM ACETATE 667 MG CAPSULE PO SCH ×3 (09:20→17:11)
[2018-03-29] MEDS: TRIAMCINOLONE 0.1% CREAM 15 GM TUBE TOP SCH ×2 (09:20→23:11)
[2018-03-29] MEDS: INSULIN REGULAR 100 UNIT/ML SUBCUT SCH ×4 (09:20→23:17)
[2018-03-29] MEDS: cloNIDine 0.1 MG TABLET PO SCH ×2 (09:20→23:08)
[2018-03-29] MEDS: ESCITALOPRAM 10 MG TABLET PO SCH (09:20)
[2018-03-29] MEDS: FEXOFENADINE 180 MG TABLET PO SCH (09:20)
[2018-03-29] MEDS: DOCUSATE SODIUM 100 MG CAPSULE PO SCH ×2 (09:20→23:11)
[2018-03-29] MEDS: GABAPENTIN 100 MG CAPSULE PO SCH ×2 (17:10→23:07)
[2018-03-29] MEDS ORDERED: SODIUM CHLORIDE 0.9% 1,000 ML IV PRN (18:35)
[2018-03-29] MEDS: hydrOXYzine HCL 25 MG TABLET PO PRN (23:08)
[2018-03-29] MEDS: SKIN HEALING OINT (AQUAPHOR) 50 GM TUBE TOP SCH (23:12)
[2018-03-30] MEDS: LEVOTHYROXINE 100 MCG TABLET PO SCH (05:54)
[2018-03-30 06:08] LABS: Basophils % 0.7 % (0.0-0.8); Eosinophils # 0.4 10*3/uL (0.0-0.87); Eosinophils % 6.2 % (0.00-10.9); Hematocrit 27.1 VOL% (42.0-52.0); Hemoglobin 8.3 GM/DL (14.0-18.0); Immature Granulocytes % 0.3 %; Immature Granulocytes Absolute 0.02 #; Lymphocytes # 0.6 10*3/uL (1.4-4.0); Lymphocytes % 10.2 % (21.2-54.2); Mean Corpuscular HGB Conc 30.6 GM/DL (32-36); Mean Corpuscular Hemoglobin 27 PG (27-34); Mean Corpuscular Volume 89.4 FL (87-102); Mean Platelet Volume 9.2 FL (9.6-12.0); Monocytes # 0.4 10*3/uL (0.11-0.8); Monocytes % 6.1 % (1.7-12.7); Neutrophils # 4.4 10*3/uL (1.4-7.4); Neutrophils % 76.5 % (38.7-73.9); Platelet Count 171 T/CUMM (130-400); Red Blood Count 3.03 MC/CUMM (3.8-5.5); Red Cell Distribution Width 14.9 % (9.3-17.3); White Blood Count 5.8 T/CUMM (4-12)
[2018-03-30 06:09] LABS: Hemoglobin 8.5 GM/DL (14.0-18.0)
[2018-03-30] MEDS: INSULIN REGULAR 100 UNIT/ML SUBCUT SCH ×4 (07:34→21:13)
[2018-03-30] MEDS: PANTOPRAZOLE 40 MG VIAL IV SCH ×2 (08:19→21:14)
[2018-03-30] MEDS: FEXOFENADINE 180 MG TABLET PO SCH (08:20)
[2018-03-30] MEDS: SKIN HEALING OINT (AQUAPHOR) 50 GM TUBE TOP SCH ×2 (08:20→21:14)
[2018-03-30] MEDS: ESCITALOPRAM 10 MG TABLET PO SCH (08:20)
[2018-03-30] MEDS: CALCIUM ACETATE 667 MG CAPSULE PO SCH ×3 (08:20→17:25)
[2018-03-30] MEDS: cloNIDine 0.1 MG TABLET PO SCH ×2 (08:20→21:14)
[2018-03-30] MEDS: TOBRAMYCIN 0.3% OPH SOLN 5 ML BOTTLE RIGHT EYE SCH ×2 (08:21→21:14)
[2018-03-30] MEDS: BACITRACIN OINT 0.9 GM PACK TOP SCH ×2 (08:21→21:14)
[2018-03-30] MEDS: DOCUSATE SODIUM 100 MG CAPSULE PO SCH ×2 (08:22→21:14)
[2018-03-30] MEDS: CEFTAROLINE 400 MG in SODIUM CHLORIDE 0.9% 100 ML IV SCH ×2 (08:25→21:12)
[2018-03-30] MEDS: TRIAMCINOLONE 0.1% CREAM 15 GM TUBE TOP SCH ×2 (08:34→21:13)
[2018-03-30] MEDS: ALBUTEROL/IPRATROPIUM 3 ML NEB RESP TX SCH ×2 (08:43→14:20)
[2018-03-30 10:22] LABS: Calcium 7.2 MG/DL (8.5-10.1); Osmolality,Calculated 293.4 MOS/KG (273-304); Potassium 5.4 MMOL/L (3.5-5.1)
[2018-03-30] MEDS: GABAPENTIN 100 MG CAPSULE PO SCH ×2 (17:25→21:13)
[2018-03-30] MEDS: VANCOMYCIN 50 MG/ML 60 ML/BOTTLE PO SCH (17:25)
[2018-03-30] MEDS: hydrOXYzine HCL 25 MG TABLET PO PRN (21:19)
[2018-03-31] MEDS: VANCOMYCIN 50 MG/ML 60 ML/BOTTLE PO SCH ×4 (00:15→17:14)
[2018-03-31] MEDS: ALBUTEROL/IPRATROPIUM 3 ML NEB RESP TX SCH ×4 (00:46→23:00)
[2018-03-31] MEDS: LEVOTHYROXINE 100 MCG TABLET PO SCH (05:46)
[2018-03-31 05:51] LABS: Basophils % 0.5 % (0.0-0.8); Eosinophils # 0.5 10*3/uL (0.0-0.87); Hematocrit 27.4 VOL% (42.0-52.0); Hemoglobin 8.6 GM/DL (14.0-18.0); Immature Granulocytes % 0.2 %; Immature Granulocytes Absolute 0.01 #; Lymphocytes # 0.7 10*3/uL (1.4-4.0); Lymphocytes % 13.1 % (21.2-54.2); Mean Corpuscular HGB Conc 31.4 GM/DL (32-36); Mean Corpuscular Hemoglobin 27 PG (27-34); Mean Platelet Volume 9.6 FL (9.6-12.0); Monocytes # 0.4 10*3/uL (0.11-0.8); Monocytes % 7.3 % (1.7-12.7); Neutrophils % 70.9 % (38.7-73.9); Platelet Count 176 T/CUMM (130-400); Red Blood Count 3.15 MC/CUMM (3.8-5.5); Red Cell Distribution Width 15.2 % (9.3-17.3); White Blood Count 5.7 T/CUMM (4-12)
[2018-03-31 05:53] LABS: Hematocrit 27.7 VOL% (42.0-52.0); Hemoglobin 8.6 GM/DL (14.0-18.0)
[2018-03-31 06:14] LABS: Calcium 8.1 MG/DL (8.5-10.1); Osmolality,Calculated 292.4 MOS/KG (273-304); Potassium 5.4 MMOL/L (3.5-5.1)
[2018-03-31] MEDS: ESCITALOPRAM 10 MG TABLET PO SCH (10:09)
[2018-03-31] MEDS: PANTOPRAZOLE 40 MG VIAL IV SCH ×2 (10:09→22:48)
[2018-03-31] MEDS: CALCIUM ACETATE 667 MG CAPSULE PO SCH ×3 (10:09→17:13)
[2018-03-31] MEDS: FEXOFENADINE 180 MG TABLET PO SCH (10:09)
[2018-03-31] MEDS: cloNIDine 0.1 MG TABLET PO SCH ×2 (10:09→23:01)
[2018-03-31] MEDS: DOCUSATE SODIUM 100 MG CAPSULE PO SCH ×2 (10:09→22:47)
[2018-03-31] MEDS: INSULIN REGULAR 100 UNIT/ML SUBCUT SCH ×4 (10:10→22:47)
[2018-03-31] MEDS: TRIAMCINOLONE 0.1% CREAM 15 GM TUBE TOP SCH ×2 (10:10→22:49)
[2018-03-31] MEDS: SKIN HEALING OINT (AQUAPHOR) 50 GM TUBE TOP SCH ×2 (10:10→22:46)
[2018-03-31] MEDS: BACITRACIN OINT 0.9 GM PACK TOP SCH ×2 (10:10→22:47)
[2018-03-31] MEDS: TOBRAMYCIN 0.3% OPH SOLN 5 ML BOTTLE RIGHT EYE SCH ×2 (10:11→22:44)
[2018-03-31] MEDS: CEFTAROLINE 400 MG in SODIUM CHLORIDE 0.9% 100 ML IV SCH ×2 (10:11→22:48)
[2018-03-31] MEDS: GABAPENTIN 100 MG CAPSULE PO SCH ×2 (17:13→22:46)
[2018-03-31] MEDS ORDERED: VANCOMYCIN INJ 1,000 MG in SODIUM CHLORIDE 0.9% 250 ML IV ONE (21:00)
[2018-03-31] MEDS: POLYVINYL ALCOHOL 1.4% OPH SOLN 15 ML BOTTLE BOTH EYES PRN (22:46)
[2018-04-01] MEDS: VANCOMYCIN 50 MG/ML 60 ML/BOTTLE PO SCH ×4 (00:26→18:21)
[2018-04-01 03:25] LABS: Basophils % 0.7 % (0.0-0.8); Eosinophils # 0.4 10*3/uL (0.0-0.87); Eosinophils % 9.9 % (0.00-10.9); Hematocrit 27.6 VOL% (42.0-52.0); Hemoglobin 8.8 GM/DL (14.0-18.0); Immature Granulocytes % 0.5 %; Immature Granulocytes Absolute 0.02 #; Lymphocytes # 0.7 10*3/uL (1.4-4.0); Lymphocytes % 16.7 % (21.2-54.2); Mean Corpuscular HGB Conc 31.9 GM/DL (32-36); Mean Corpuscular Hemoglobin 28 PG (27-34); Mean Corpuscular Volume 87.1 FL (87-102); Mean Platelet Volume 9.3 FL (9.6-12.0); Monocytes # 0.4 10*3/uL (0.11-0.8); Monocytes % 9.5 % (1.7-12.7); Neutrophils # 2.8 10*3/uL (1.4-7.4); Neutrophils % 62.7 % (38.7-73.9); Platelet Count 186 T/CUMM (130-400); Red Blood Count 3.17 MC/CUMM (3.8-5.5); White Blood Count 4.4 T/CUMM (4-12)
[2018-04-01 03:27] LABS: Hematocrit 27.4 VOL% (42.0-52.0); Hemoglobin 8.7 GM/DL (14.0-18.0)
[2018-04-01 03:32] LABS: Calcium 7.8 MG/DL (8.5-10.1); Osmolality,Calculated 293.5 MOS/KG (273-304); Potassium 5.6 MMOL/L (3.5-5.1)
[2018-04-01] MEDS: LEVOTHYROXINE 100 MCG TABLET PO SCH (07:07)
[2018-04-01] MEDS: ALBUTEROL/IPRATROPIUM 3 ML NEB RESP TX SCH ×2 (08:02→14:26)
[2018-04-01] MEDS: INSULIN REGULAR 100 UNIT/ML SUBCUT SCH ×3 (08:58→16:57)
[2018-04-01] MEDS: CALCIUM ACETATE 667 MG CAPSULE PO SCH ×3 (08:58→18:21)
[2018-04-01] MEDS: DOCUSATE SODIUM 100 MG CAPSULE PO SCH ×2 (08:59→21:56)
[2018-04-01] MEDS: cloNIDine 0.1 MG TABLET PO SCH ×2 (08:59→15:46)
[2018-04-01] MEDS ORDERED: HEPARIN 5,000 UNIT/1 ML VIAL ONE (11:49)
[2018-04-01] MEDS ORDERED: BUPIVACAINE 0.25% /EPI 10 ML VIAL ONE ×2 (11:49)
[2018-04-01] MEDS ORDERED: LIDOCAINE 1%/EPI INJ 20 ML VIAL ONE (11:49)
[2018-04-01] MEDS: ESCITALOPRAM 10 MG TABLET PO SCH (12:11)
[2018-04-01] MEDS: PANTOPRAZOLE 40 MG VIAL IV SCH ×2 (12:11→21:55)
[2018-04-01] MEDS: FEXOFENADINE 180 MG TABLET PO SCH (12:11)
[2018-04-01] MEDS ORDERED: MIDAZOLAM 2 MG/2 ML VIAL ONE (13:01)
[2018-04-01] MEDS ORDERED: fentaNYL 100 MCG/2 ML VIAL ONE (13:02)
[2018-04-01] MEDS ORDERED: KETAMINE 500 MG/10 ML VIAL ONE (13:03)
[2018-04-01] MEDS: SKIN HEALING OINT (AQUAPHOR) 50 GM TUBE TOP SCH ×2 (13:28→21:56)
[2018-04-01] MEDS: TOBRAMYCIN 0.3% OPH SOLN 5 ML BOTTLE RIGHT EYE SCH ×2 (13:28→21:56)
[2018-04-01] MEDS: TRIAMCINOLONE 0.1% CREAM 15 GM TUBE TOP SCH ×2 (13:28→21:56)
[2018-04-01] MEDS: BACITRACIN OINT 0.9 GM PACK TOP SCH ×2 (13:28→21:56)
[2018-04-01] MEDS: CEFTAROLINE 400 MG in SODIUM CHLORIDE 0.9% 100 ML IV SCH ×2 (13:49→21:54)
[2018-04-01] MEDS ORDERED: HEPARIN LOCK FLUSH 500 UNIT/5 ML SYRINGE IV ONE (15:29)
[2018-04-01] MEDS ORDERED: TISSUE ADHESIVE 1 EACH APPLICATOR TOP ONE (15:29)
[2018-04-01] MEDS: GABAPENTIN 100 MG CAPSULE PO SCH ×2 (15:46→21:55)
[2018-04-01] MEDS ORDERED: HEPARIN LOCK FLUSH 500 UNIT/5 ML SYRINGE IV PRN (16:08)
[2018-04-01] MEDS ORDERED: GLUCAGON 1 MG VIAL IM PRN (17:19)
[2018-04-01] MEDS ORDERED: DEXTROSE 50% 25 GM/50 ML VIAL IV PRN (17:19)
[2018-04-01] MEDS: POLYVINYL ALCOHOL 1.4% OPH SOLN 15 ML BOTTLE BOTH EYES PRN (21:57)
[2018-04-02] MEDS: ALBUTEROL/IPRATROPIUM 3 ML NEB RESP TX SCH ×4 (00:10→23:00)
[2018-04-02] MEDS: INSULIN REGULAR 100 UNIT/ML SUBCUT SCH ×5 (02:46→20:36)
[2018-04-02] MEDS: VANCOMYCIN 50 MG/ML 60 ML/BOTTLE PO SCH ×4 (02:47→19:09)
[2018-04-02] MEDS: LEVOTHYROXINE 100 MCG TABLET PO SCH (06:43)
[2018-04-02 06:46] LABS: Basophils % 0.5 % (0.0-0.8); Eosinophils # 0.4 10*3/uL (0.0-0.87); Eosinophils % 10.2 % (0.00-10.9); Hematocrit 26.8 VOL% (42.0-52.0); Hemoglobin 8.6 GM/DL (14.0-18.0); Immature Granulocytes % 0.5 %; Immature Granulocytes Absolute 0.02 #; Lymphocytes # 0.7 10*3/uL (1.4-4.0); Lymphocytes % 19.4 % (21.2-54.2); Mean Corpuscular HGB Conc 32.1 GM/DL (32-36); Mean Corpuscular Hemoglobin 28 PG (27-34); Mean Corpuscular Volume 85.6 FL (87-102); Mean Platelet Volume 9.3 FL (9.6-12.0); Monocytes # 0.3 10*3/uL (0.11-0.8); Monocytes % 9.1 % (1.7-12.7); Neutrophils # 2.2 10*3/uL (1.4-7.4); Neutrophils % 60.3 % (38.7-73.9); Platelet Count 180 T/CUMM (130-400); Red Blood Count 3.13 MC/CUMM (3.8-5.5); Red Cell Distribution Width 14.8 % (9.3-17.3); White Blood Count 3.7 T/CUMM (4-12)
[2018-04-02 07:27] LABS: Albumin 2.8 G/DL (3.4-5.0); Bilirubin,Total 0.4 MG/DL (0.2-1.0); Calcium 7.8 MG/DL (8.5-10.1); Osmolality,Calculated 284.5 MOS/KG (273-304); Potassium 4.4 MMOL/L (3.5-5.1); Total Protein 7.7 G/DL (6.4-8.3)
[2018-04-02 08:15] LABS: Hepatitis A Ab IgM Quant 0.12 Index; Hepatitis A Ab IgM Result Negative (Negative); Hepatitis B Core IgM Quant 0.07 Index; Hepatitis B Core IgM Result Negative (Negative); Hepatitis B Surface Ag Quant < 0.10 Index; Hepatitis B Surface Ag Result Negative (Negative); Hepatitis C Virus Ab Quant 0.11 Index; Hepatitis C Virus Ab Result Negative (Negative)
[2018-04-02] MEDS: TRIAMCINOLONE 0.1% CREAM 15 GM TUBE TOP SCH ×2 (09:00→20:24)
[2018-04-02] MEDS: SKIN HEALING OINT (AQUAPHOR) 50 GM TUBE TOP SCH ×2 (09:00→20:23)
[2018-04-02] MEDS: TOBRAMYCIN 0.3% OPH SOLN 5 ML BOTTLE RIGHT EYE SCH ×2 (09:00→20:21)
[2018-04-02] MEDS: CEFTAROLINE 400 MG in SODIUM CHLORIDE 0.9% 100 ML IV SCH ×2 (10:15→20:27)
[2018-04-02] MEDS: hydrOXYzine HCL 25 MG TABLET PO PRN ×2 (10:22→20:22)
[2018-04-02] MEDS: CALCIUM ACETATE 667 MG CAPSULE PO SCH ×3 (10:22→17:50)
[2018-04-02] MEDS: FEXOFENADINE 180 MG TABLET PO SCH (10:23)
[2018-04-02] MEDS: DOCUSATE SODIUM 100 MG CAPSULE PO SCH ×2 (10:23→20:22)
[2018-04-02] MEDS: PANTOPRAZOLE 40 MG VIAL IV SCH ×2 (10:23→20:22)
[2018-04-02] MEDS: ESCITALOPRAM 10 MG TABLET PO SCH (10:23)
[2018-04-02] MEDS: BACITRACIN OINT 0.9 GM PACK TOP SCH ×2 (10:23→20:21)
[2018-04-02] MEDS: ZINC OXIDE PASTE 113 GM TUBE TOP PRN ×2 (10:28→20:21)
[2018-04-02] MEDS: GABAPENTIN 100 MG CAPSULE PO SCH ×2 (17:50→20:36)
[2018-04-03] MEDS: VANCOMYCIN 50 MG/ML 60 ML/BOTTLE PO SCH ×2 (00:47→06:22)
[2018-04-03] MEDS: LEVOTHYROXINE 100 MCG TABLET PO SCH (06:21)
[2018-04-03 07:26] VITALS: BP 143/80
[2018-04-03 07:28] LABS: Calcium 7.7 MG/DL (8.5-10.1); Osmolality,Calculated 288.5 MOS/KG (273-304); Potassium 4.9 MMOL/L (3.5-5.1)
[2018-04-03] MEDS: ALBUTEROL/IPRATROPIUM 3 ML NEB RESP TX SCH (07:29)
[2018-04-03] MEDS: INSULIN REGULAR 100 UNIT/ML SUBCUT SCH (08:00)
[2018-04-03] MEDS: ESCITALOPRAM 10 MG TABLET PO SCH (08:44)
[2018-04-03] MEDS: DOCUSATE SODIUM 100 MG CAPSULE PO SCH (08:44)
[2018-04-03] MEDS: CALCIUM ACETATE 667 MG CAPSULE PO SCH ×2 (08:44→14:26)
[2018-04-03] MEDS: FEXOFENADINE 180 MG TABLET PO SCH (08:44)
[2018-04-03] MEDS: CEFTAROLINE 400 MG in SODIUM CHLORIDE 0.9% 100 ML IV SCH (09:00)
[2018-04-03] MEDS: TOBRAMYCIN 0.3% OPH SOLN 5 ML BOTTLE RIGHT EYE SCH (09:00)
[2018-04-03] MEDS: PANTOPRAZOLE 40 MG VIAL IV SCH (09:00)
[2018-04-03] MEDS ORDERED: VANCOMYCIN INJ 1,000 MG in SODIUM CHLORIDE 0.9% 250 ML IV ONE (14:00)
== END 2018-04-03 16:15 | DRG 314 ==
LOC: EDUNIT# → N.ED 13:44 → N.EDINP 16:52 → N.TELEN 17:47 → N.5E 03-22 18:22
PROVIDERS: ADMIT Emergency Medicine Emergency Medical Services; ATTEND Internal Medicine
PROC: COLONBX (2018-03-17 08:05)

== ENCOUNTER 2018-08-27 18:53 | Inpatient (IN) ==
[2018-08-27] MEDS ORDERED: SODIUM CHLORIDE 0.9% 1,000 ML IV STA (19:22)
[2018-08-27] MEDS ORDERED: ACETAMINOPHEN 500 MG TABLET PO STA (19:22)
[2018-08-27 19:37] LABS: Basophils % 0.1 % (0.0-0.8); Eosinophils # 0.1 10*3/uL (0.0-0.87); Eosinophils % 0.9 % (0.00-10.9); Hematocrit 26.4 VOL% (42.0-52.0); Hemoglobin 8.3 GM/DL (14.0-18.0); Immature Granulocytes % 0.8 %; Immature Granulocytes Absolute 0.09 #; Lymphocytes # 0.5 10*3/uL (1.4-4.0); Lymphocytes % 4.2 % (21.2-54.2); Mean Corpuscular HGB Conc 31.4 GM/DL (32-36); Mean Corpuscular Hemoglobin 28 PG (27-34); Mean Platelet Volume 10.9 FL (9.6-12.0); Monocytes # 0.7 10*3/uL (0.11-0.8); Monocytes % 5.7 % (1.7-12.7); Neutrophils # 10.2 10*3/uL (1.4-7.4); Neutrophils % 88.3 % (38.7-73.9); Platelet Count 142 T/CUMM (130-400); Red Cell Distribution Width 16.4 % (9.3-17.3); White Blood Count 11.5 T/CUMM (4-12)
[2018-08-27 20:00] LABS: Albumin 3.1 G/DL (3.4-5.0); Bilirubin,Total 1.1 MG/DL (0.2-1.0); Calcium 8.7 MG/DL (8.5-10.1); Osmolality,Calculated 288.4 MOS/KG (273-304); Total Protein 7.7 G/DL (6.4-8.3)
[2018-08-27 20:49] LABS: Band Neutrophils 11 % (0-10); Eosinophils 1 % (0-10); Lymphocytes 3 % (20-55); Platelet Estimate Normal; Polychromasia Slight; Segmented Neutrophils 82 % (50-85); Total Cells Counted 100; Toxic Granulation 1+
[2018-08-27] MEDS ORDERED: cefTRIAXone 250 MG VIAL IV STA (21:30)
[2018-08-27] MEDS ORDERED: VANCOMYCIN INJ 1,000 MG in SODIUM CHLORIDE 0.9% 250 ML IV STA (21:31)
[2018-08-27] MEDS ORDERED: cefTRIAXone 1,000 MG VIAL ONE (21:39)
[2018-08-27] MEDS ORDERED: SODIUM CHLORIDE 0.9% 250 ML IV ONE (21:39)
[2018-08-27] MEDS ORDERED: diphenhydrAMINE CAP 25 MG CAPSULE PO PRN (22:24)
[2018-08-27] MEDS ORDERED: ACETAMINOPHEN 500 MG TABLET PO PRN (22:24)
[2018-08-27] MEDS ORDERED: MORPHINE 4 MG/1 ML VIAL IV PRN (22:24)
[2018-08-27] MEDS ORDERED: BISACODYL 5 MG TABLET PO PRN (22:24)
[2018-08-27] MEDS ORDERED: DEXTROSE 50% 25 GM/50 ML VIAL IV PRN (22:24)
[2018-08-27] MEDS ORDERED: NICOTINE 21 MG/24 HR PATCH TRANSDERM PRN (22:24)
[2018-08-27] MEDS ORDERED: ONDANSETRON 4 MG/2 ML VIAL IV PRN (22:24)
[2018-08-27] MEDS ORDERED: GLUCAGON 1 MG VIAL IM PRN (22:24)
[2018-08-27] MEDS: ALBUTEROL/IPRATROPIUM 3 ML NEB RESP TX SCH (23:58)
[2018-08-28] MEDS ORDERED: VANCOMYCIN INJ 1,500 MG in SODIUM CHLORIDE 0.9% 500 ML IV ONE (00:30)
[2018-08-28] MEDS: INSULIN REGULAR 100 UNIT/ML SUBCUT SCH ×4 (01:29→18:21)
[2018-08-28] MEDS: ALBUTEROL/IPRATROPIUM 3 ML NEB RESP TX SCH ×6 (03:57→23:36)
[2018-08-28] MEDS: PIPERACILLIN/TAZOBACTAM 3,375 MG in SODIUM CHLORIDE 0.9% 100 ML IV SCH ×2 (04:02→18:21)
[2018-08-28] MEDS: LEVOTHYROXINE 100 MCG TABLET PO SCH (06:24)
[2018-08-28] MEDS ORDERED: VANCOMYCIN INJ 1,000 MG in SODIUM CHLORIDE 0.9% 250 ML IV PRN ×2 (06:33→14:06)
[2018-08-28 07:30] LABS: Basophils % 0.3 % (0.0-0.8); Eosinophils # 0.1 10*3/uL (0.0-0.87); Eosinophils % 0.8 % (0.00-10.9); Hemoglobin 7.5 GM/DL (14.0-18.0); Immature Granulocytes % 0.4 %; Immature Granulocytes Absolute 0.03 #; Lymphocytes # 0.5 10*3/uL (1.4-4.0); Lymphocytes % 6.2 % (21.2-54.2); Mean Corpuscular HGB Conc 31.3 GM/DL (32-36); Mean Corpuscular Hemoglobin 28 PG (27-34); Mean Corpuscular Volume 88.6 FL (87-102); Mean Platelet Volume 10.9 FL (9.6-12.0); Monocytes # 0.2 10*3/uL (0.11-0.8); Monocytes % 2.6 % (1.7-12.7); Neutrophils # 6.7 10*3/uL (1.4-7.4); Neutrophils % 89.7 % (38.7-73.9); Platelet Count 124 T/CUMM (130-400); Red Blood Count 2.71 MC/CUMM (3.8-5.5); Red Cell Distribution Width 16.4 % (9.3-17.3); White Blood Count 7.4 T/CUMM (4-12)
[2018-08-28 07:43] LABS: Albumin 2.7 G/DL (3.4-5.0); Bilirubin,Total 1.2 MG/DL (0.2-1.0); Calcium 8.3 MG/DL (8.5-10.1); Osmolality,Calculated 290.8 MOS/KG (273-304); Potassium 4.5 MMOL/L (3.5-5.1); Total Protein 6.7 G/DL (6.4-8.3)
[2018-08-28 07:50] LABS: Band Neutrophils 52 % (0-10); Eosinophils 4 % (0-10); Lymphocytes 4 % (20-55); Segmented Neutrophils 38 % (50-85); Total Cells Counted 100
[2018-08-28 07:51] LABS: Anisocytosis 2+; Platelet Estimate Adequate
[2018-08-28] MEDS: CALCIUM ACETATE 667 MG CAPSULE PO SCH ×3 (09:48→18:21)
[2018-08-28] MEDS: FEXOFENADINE 180 MG TABLET PO SCH (09:49)
[2018-08-28] MEDS: MULTIVITAMIN (CENTRUM) TABLET PO SCH (09:49)
[2018-08-28] MEDS: ASPIRIN EC 81 MG TABLET PO SCH (09:49)
[2018-08-28] MEDS: ATORVASTATIN 10 MG TABLET PO SCH (09:49)
[2018-08-28] MEDS: PANTOPRAZOLE 40 MG TABLET PO SCH (09:49)
[2018-08-28] MEDS: FERROUS SULFATE 325 MG TABLET PO SCH (09:49)
[2018-08-28] MEDS: cloNIDine 0.1 MG TABLET PO SCH ×3 (09:49→20:52)
[2018-08-28] MEDS: ESCITALOPRAM 10 MG TABLET PO SCH (09:49)
[2018-08-28] MEDS: FENOFIBRATE 160 MG TABLET PO SCH (09:49)
[2018-08-28] MEDS ORDERED: VANCOMYCIN INJ 1,000 MG in SODIUM CHLORIDE 0.9% 250 ML IV ONE (12:30)
[2018-08-28] MEDS: GABAPENTIN 100 MG CAPSULE PO SCH ×2 (17:56→20:52)
[2018-08-28] MEDS: INSULIN GLARGINE 100 UNIT/ML SUBCUT SCH (20:52)
[2018-08-29] MEDS: INSULIN REGULAR 100 UNIT/ML SUBCUT SCH ×4 (00:56→17:46)
[2018-08-29] MEDS: ALBUTEROL/IPRATROPIUM 3 ML NEB RESP TX SCH ×6 (03:09→22:50)
[2018-08-29] MEDS: PIPERACILLIN/TAZOBACTAM 3,375 MG in SODIUM CHLORIDE 0.9% 100 ML IV SCH ×2 (04:32→17:46)
[2018-08-29 05:56] LABS: Basophils % 0.2 % (0.0-0.8); Eosinophils # 0.3 10*3/uL (0.0-0.87); Eosinophils % 3.2 % (0.00-10.9); Hematocrit 20.5 VOL% (42.0-52.0); Hemoglobin 6.5 GM/DL (14.0-18.0); Immature Granulocytes % 0.6 %; Immature Granulocytes Absolute 0.05 #; Lymphocytes % 12.3 % (21.2-54.2); Mean Corpuscular HGB Conc 31.7 GM/DL (32-36); Mean Corpuscular Hemoglobin 28 PG (27-34); Mean Corpuscular Volume 87.2 FL (87-102); Mean Platelet Volume 9.9 FL (9.6-12.0); Monocytes # 0.6 10*3/uL (0.11-0.8); Monocytes % 7.5 % (1.7-12.7); Neutrophils # 6.2 10*3/uL (1.4-7.4); Neutrophils % 76.2 % (38.7-73.9); Platelet Count 111 T/CUMM (130-400); Red Blood Count 2.35 MC/CUMM (3.8-5.5); Red Cell Distribution Width 16.4 % (9.3-17.3); White Blood Count 8.1 T/CUMM (4-12)
[2018-08-29 06:17] LABS: Calcium 7.9 MG/DL (8.5-10.1); Osmolality,Calculated 280.1 MOS/KG (273-304); Potassium 4.5 MMOL/L (3.5-5.1)
[2018-08-29 06:25] LABS: Band Neutrophils 2 % (0-10); Hypochromasia Slight; Lymphocytes 13 % (20-55); Metamyelocytes 3 %; Platelet Estimate Decreased; Segmented Neutrophils 77 % (50-85); Total Cells Counted 100
[2018-08-29] MEDS: LEVOTHYROXINE 100 MCG TABLET PO SCH (06:32)
[2018-08-29] MEDS ORDERED: SODIUM CHLORIDE 0.9% 1,000 ML IV PRN (08:11)
[2018-08-29] MEDS ORDERED: TUBERCULIN SKIN TEST 0.1 ML SYRINGE INTRADERM ONE (09:39)
[2018-08-29] MEDS: ASPIRIN EC 81 MG TABLET PO SCH (09:43)
[2018-08-29] MEDS: MULTIVITAMIN (CENTRUM) TABLET PO SCH (09:43)
[2018-08-29] MEDS: FEXOFENADINE 180 MG TABLET PO SCH (09:43)
[2018-08-29] MEDS: CALCIUM ACETATE 667 MG CAPSULE PO SCH ×3 (09:43→17:46)
[2018-08-29] MEDS: FENOFIBRATE 160 MG TABLET PO SCH (09:43)
[2018-08-29] MEDS: FERROUS SULFATE 325 MG TABLET PO SCH (09:44)
[2018-08-29] MEDS: PANTOPRAZOLE 40 MG TABLET PO SCH (09:44)
[2018-08-29] MEDS: ATORVASTATIN 10 MG TABLET PO SCH (09:44)
[2018-08-29] MEDS: ESCITALOPRAM 10 MG TABLET PO SCH (09:44)
[2018-08-29] MEDS: cloNIDine 0.1 MG TABLET PO SCH ×4 (09:44→21:26)
[2018-08-29] MEDS ORDERED: GENTAMICIN INJ 160 MG in SODIUM CHLORIDE 0.9% 100 ML IV ONE (14:32)
[2018-08-29] MEDS: SKIN HEALING OINT (AQUAPHOR) 50 GM TUBE TOP PRN (16:12)
[2018-08-29] MEDS: BACITRACIN OINT 0.9 GM PACK TOP SCH (16:12)
[2018-08-29] MEDS: HEPARIN 5,000 UNIT/1 ML VIAL SUBCUT SCH (16:12)
[2018-08-29] MEDS: GABAPENTIN 100 MG CAPSULE PO SCH ×2 (16:48→21:26)
[2018-08-29] MEDS: INSULIN GLARGINE 100 UNIT/ML SUBCUT SCH (21:26)
[2018-08-30] MEDS: INSULIN REGULAR 100 UNIT/ML SUBCUT SCH ×4 (00:26→18:08)
[2018-08-30] MEDS: HEPARIN 5,000 UNIT/1 ML VIAL SUBCUT SCH ×2 (02:12→14:37)
[2018-08-30] MEDS: ALBUTEROL/IPRATROPIUM 3 ML NEB RESP TX SCH ×6 (02:38→23:56)
[2018-08-30] MEDS: PIPERACILLIN/TAZOBACTAM 3,375 MG in SODIUM CHLORIDE 0.9% 100 ML IV SCH ×2 (04:12→18:07)
[2018-08-30] MEDS: LEVOTHYROXINE 100 MCG TABLET PO SCH (06:06)
[2018-08-30 06:13] LABS: Basophils % 0.2 % (0.0-0.8); Eosinophils # 0.5 10*3/uL (0.0-0.87); Eosinophils % 5.3 % (0.00-10.9); Hematocrit 23.9 VOL% (42.0-52.0); Hemoglobin 7.4 GM/DL (14.0-18.0); Immature Granulocytes % 0.7 %; Immature Granulocytes Absolute 0.06 #; Lymphocytes % 10.4 % (21.2-54.2); Mean Corpuscular Hemoglobin 28 PG (27-34); Mean Corpuscular Volume 88.8 FL (87-102); Mean Platelet Volume 11.5 FL (9.6-12.0); Monocytes # 0.7 10*3/uL (0.11-0.8); Monocytes % 7.4 % (1.7-12.7); Platelet Count 144 T/CUMM (130-400); Red Blood Count 2.69 MC/CUMM (3.8-5.5); Red Cell Distribution Width 16.3 % (9.3-17.3); White Blood Count 9.2 T/CUMM (4-12)
[2018-08-30] MEDS ORDERED: SODIUM CHLORIDE 0.9% 1,000 ML IV PRN (08:36)
[2018-08-30] MEDS: cloNIDine 0.1 MG TABLET PO SCH ×4 (10:04→21:18)
[2018-08-30] MEDS: FEXOFENADINE 180 MG TABLET PO SCH (10:12)
[2018-08-30] MEDS: ASPIRIN EC 81 MG TABLET PO SCH (10:12)
[2018-08-30] MEDS: PANTOPRAZOLE 40 MG TABLET PO SCH (10:12)
[2018-08-30] MEDS: MULTIVITAMIN (CENTRUM) TABLET PO SCH (10:12)
[2018-08-30] MEDS: CALCIUM ACETATE 667 MG CAPSULE PO SCH ×3 (10:12→18:08)
[2018-08-30] MEDS: BACITRACIN OINT 0.9 GM PACK TOP SCH (10:13)
[2018-08-30] MEDS: FENOFIBRATE 160 MG TABLET PO SCH (10:13)
[2018-08-30] MEDS: ESCITALOPRAM 10 MG TABLET PO SCH (10:13)
[2018-08-30] MEDS: FERROUS SULFATE 325 MG TABLET PO SCH (10:13)
[2018-08-30] MEDS: ATORVASTATIN 10 MG TABLET PO SCH (10:13)
[2018-08-30 15:53] LABS: Apearance,Urine CLEAR (Clear); Bilirubin,Urine Negative (Negative); Blood, Urine Negative (Negative); Glucose,Urine (UA) >=500 mg/dL (Negative); Hyaline Casts,Urine 1 /LPF (0-3); Ketones,Urine Negative (Negative); Nitrite,Urine Negative (Negative); Protein,Urine 100 MG/DL; RBC,Urine 1 /HPF (0-4); Squamous Epithelial Cell,Urine Occasional /HPF (0-10); Urine Color Yellow (Yellow); Urine Urobilinogen < 2.0 EU/DL (0.2-1.0); WBC,Urine <1 /HPF (0-6)
[2018-08-30] MEDS ORDERED: VANCOMYCIN INJ 1,000 MG in SODIUM CHLORIDE 0.9% 250 ML IV ONE (17:00)
[2018-08-30] MEDS: GABAPENTIN 100 MG CAPSULE PO SCH ×2 (18:07→21:18)
[2018-08-30] MEDS: INSULIN GLARGINE 100 UNIT/ML SUBCUT SCH (21:18)
[2018-08-31] MEDS: INSULIN REGULAR 100 UNIT/ML SUBCUT SCH ×4 (01:30→17:22)
[2018-08-31] MEDS: HEPARIN 5,000 UNIT/1 ML VIAL SUBCUT SCH ×2 (01:53→16:00)
[2018-08-31] MEDS: ALBUTEROL/IPRATROPIUM 3 ML NEB RESP TX SCH ×6 (03:52→23:51)
[2018-08-31 05:18] LABS: Basophils % 0.3 % (0.0-0.8); Eosinophils # 0.5 10*3/uL (0.0-0.87); Eosinophils % 7.9 % (0.00-10.9); Hemoglobin 7.9 GM/DL (14.0-18.0); Immature Granulocytes % 2.5 %; Immature Granulocytes Absolute 0.16 #; Lymphocytes # 0.9 10*3/uL (1.4-4.0); Lymphocytes % 14.6 % (21.2-54.2); Mean Corpuscular HGB Conc 31.6 GM/DL (32-36); Mean Corpuscular Hemoglobin 28 PG (27-34); Mean Corpuscular Volume 87.4 FL (87-102); Mean Platelet Volume 11.1 FL (9.6-12.0); Monocytes # 0.5 10*3/uL (0.11-0.8); Neutrophils # 4.4 10*3/uL (1.4-7.4); Neutrophils % 67.7 % (38.7-73.9); Platelet Count 167 T/CUMM (130-400); Red Blood Count 2.86 MC/CUMM (3.8-5.5); Red Cell Distribution Width 15.9 % (9.3-17.3); White Blood Count 6.5 T/CUMM (4-12)
[2018-08-31] MEDS: PIPERACILLIN/TAZOBACTAM 3,375 MG in SODIUM CHLORIDE 0.9% 100 ML IV SCH (06:33)
[2018-08-31] MEDS: LEVOTHYROXINE 100 MCG TABLET PO SCH (06:34)
[2018-08-31] MEDS: cloNIDine 0.1 MG TABLET PO SCH ×4 (08:31→20:39)
[2018-08-31] MEDS: CALCIUM ACETATE 667 MG CAPSULE PO SCH ×3 (08:31→17:22)
[2018-08-31] MEDS: MULTIVITAMIN (CENTRUM) TABLET PO SCH (08:31)
[2018-08-31] MEDS: ATORVASTATIN 10 MG TABLET PO SCH (08:31)
[2018-08-31] MEDS: FENOFIBRATE 160 MG TABLET PO SCH (08:31)
[2018-08-31] MEDS: FEXOFENADINE 180 MG TABLET PO SCH (08:31)
[2018-08-31] MEDS: FERROUS SULFATE 325 MG TABLET PO SCH (08:32)
[2018-08-31] MEDS: BACITRACIN OINT 0.9 GM PACK TOP SCH (08:32)
[2018-08-31] MEDS: PANTOPRAZOLE 40 MG TABLET PO SCH (08:32)
[2018-08-31] MEDS: ASPIRIN EC 81 MG TABLET PO SCH (08:32)
[2018-08-31] MEDS: ESCITALOPRAM 10 MG TABLET PO SCH (08:38)
[2018-08-31] MEDS ORDERED: VANCOMYCIN INJ 1,000 MG in SODIUM CHLORIDE 0.9% 250 ML IV ONE (12:00)
[2018-08-31] MEDS ORDERED: GENTAMICIN INJ 100 MG in PREMIX 1 EACH IV ONE (13:00)
[2018-08-31] MEDS: GABAPENTIN 100 MG CAPSULE PO SCH (20:39)
[2018-08-31] MEDS: INSULIN GLARGINE 100 UNIT/ML SUBCUT SCH (21:15)
[2018-09-01] MEDS: INSULIN REGULAR 100 UNIT/ML SUBCUT SCH ×4 (01:00→16:59)
[2018-09-01] MEDS: HEPARIN 5,000 UNIT/1 ML VIAL SUBCUT SCH ×2 (02:13→16:59)
[2018-09-01] MEDS: ALBUTEROL/IPRATROPIUM 3 ML NEB RESP TX SCH ×7 (03:34→23:38)
[2018-09-01] MEDS: LEVOTHYROXINE 100 MCG TABLET PO SCH (06:23)
[2018-09-01] MEDS: CALCIUM ACETATE 667 MG CAPSULE PO SCH ×3 (09:36→16:58)
[2018-09-01] MEDS: FEXOFENADINE 180 MG TABLET PO SCH (09:36)
[2018-09-01] MEDS: ASPIRIN EC 81 MG TABLET PO SCH (09:36)
[2018-09-01] MEDS: ATORVASTATIN 10 MG TABLET PO SCH (09:36)
[2018-09-01] MEDS: FENOFIBRATE 160 MG TABLET PO SCH (09:36)
[2018-09-01] MEDS: FERROUS SULFATE 325 MG TABLET PO SCH (09:36)
[2018-09-01] MEDS: PANTOPRAZOLE 40 MG TABLET PO SCH (09:36)
[2018-09-01] MEDS: MULTIVITAMIN (CENTRUM) TABLET PO SCH (09:36)
[2018-09-01] MEDS: cloNIDine 0.1 MG TABLET PO SCH ×4 (09:37→22:07)
[2018-09-01] MEDS: BACITRACIN OINT 0.9 GM PACK TOP SCH (09:37)
[2018-09-01] MEDS: ESCITALOPRAM 10 MG TABLET PO SCH (09:37)
[2018-09-01] MEDS ORDERED: GENTAMICIN INJ 100 MG in PREMIX 1 EACH IV PRN (13:47)
[2018-09-01] MEDS: ZINC OXIDE PASTE 113 GM TUBE TOP SCH (22:06)
[2018-09-01] MEDS: GABAPENTIN 100 MG CAPSULE PO SCH (22:06)
[2018-09-01] MEDS: INSULIN GLARGINE 100 UNIT/ML SUBCUT SCH (22:07)
[2018-09-02] MEDS: INSULIN REGULAR 100 UNIT/ML SUBCUT SCH ×4 (00:25→17:41)
[2018-09-02] MEDS: ALBUTEROL/IPRATROPIUM 3 ML NEB RESP TX SCH ×6 (02:27→22:39)
[2018-09-02] MEDS: HEPARIN 5,000 UNIT/1 ML VIAL SUBCUT SCH ×2 (02:46→14:52)
[2018-09-02] MEDS: LEVOTHYROXINE 100 MCG TABLET PO SCH (06:47)
[2018-09-02] MEDS: MULTIVITAMIN (CENTRUM) TABLET PO SCH (08:39)
[2018-09-02] MEDS: ATORVASTATIN 10 MG TABLET PO SCH (08:40)
[2018-09-02] MEDS: CALCIUM ACETATE 667 MG CAPSULE PO SCH ×3 (08:40→17:40)
[2018-09-02] MEDS: FENOFIBRATE 160 MG TABLET PO SCH (08:40)
[2018-09-02] MEDS: ESCITALOPRAM 10 MG TABLET PO SCH (08:40)
[2018-09-02] MEDS: FEXOFENADINE 180 MG TABLET PO SCH (08:40)
[2018-09-02] MEDS: PANTOPRAZOLE 40 MG TABLET PO SCH (08:40)
[2018-09-02] MEDS: ASPIRIN EC 81 MG TABLET PO SCH (08:40)
[2018-09-02] MEDS: FERROUS SULFATE 325 MG TABLET PO SCH (08:40)
[2018-09-02] MEDS: cloNIDine 0.1 MG TABLET PO SCH ×4 (08:40→22:34)
[2018-09-02] MEDS: BACITRACIN OINT 0.9 GM PACK TOP SCH (08:41)
[2018-09-02] MEDS: ZINC OXIDE PASTE 113 GM TUBE TOP SCH ×2 (08:41→22:38)
[2018-09-02 12:08] LABS: Calcium 7.8 MG/DL (8.5-10.1); Osmolality,Calculated 282.2 MOS/KG (273-304); Potassium 5.7 MMOL/L (3.5-5.1)
[2018-09-02] MEDS ORDERED: SODIUM POLYSTYRENE SULFATE 15 GM/60 ML BOTTLE PO ONE (13:29)
[2018-09-02] MEDS: GABAPENTIN 100 MG CAPSULE PO SCH (22:34)
[2018-09-02] MEDS: INSULIN GLARGINE 100 UNIT/ML SUBCUT SCH (22:38)
[2018-09-03] MEDS: INSULIN REGULAR 100 UNIT/ML SUBCUT SCH ×4 (00:05→21:49)
[2018-09-03] MEDS: ALBUTEROL/IPRATROPIUM 3 ML NEB RESP TX SCH ×5 (02:44→20:28)
[2018-09-03] MEDS: HEPARIN 5,000 UNIT/1 ML VIAL SUBCUT SCH ×2 (02:59→15:06)
[2018-09-03 06:22] LABS: Basophils % 0.5 % (0.0-0.8); Eosinophils # 0.5 10*3/uL (0.0-0.87); Eosinophils % 5.8 % (0.00-10.9); Hematocrit 27.5 VOL% (42.0-52.0); Hemoglobin 8.3 GM/DL (14.0-18.0); Immature Granulocytes % 1.8 %; Immature Granulocytes Absolute 0.16 #; Lymphocytes # 0.9 10*3/uL (1.4-4.0); Lymphocytes % 10.3 % (21.2-54.2); Mean Corpuscular HGB Conc 30.2 GM/DL (32-36); Mean Corpuscular Hemoglobin 27 PG (27-34); Mean Corpuscular Volume 90.2 FL (87-102); Mean Platelet Volume 9.5 FL (9.6-12.0); Monocytes # 0.5 10*3/uL (0.11-0.8); Neutrophils # 6.6 10*3/uL (1.4-7.4); Neutrophils % 75.6 % (38.7-73.9); Platelet Count 251 T/CUMM (130-400); Red Blood Count 3.05 MC/CUMM (3.8-5.5); Red Cell Distribution Width 16.2 % (9.3-17.3); White Blood Count 8.8 T/CUMM (4-12)
[2018-09-03] MEDS: LEVOTHYROXINE 100 MCG TABLET PO SCH (06:33)
[2018-09-03 07:02] LABS: Albumin 2.6 G/DL (3.4-5.0); Bilirubin,Total 0.9 MG/DL (0.2-1.0); Calcium 7.9 MG/DL (8.5-10.1); Osmolality,Calculated 283.7 MOS/KG (273-304); Potassium 5.2 MMOL/L (3.5-5.1); Total Protein 7.4 G/DL (6.4-8.3)
[2018-09-03] MEDS: ESCITALOPRAM 10 MG TABLET PO SCH (09:22)
[2018-09-03] MEDS: MULTIVITAMIN (CENTRUM) TABLET PO SCH (09:23)
[2018-09-03] MEDS: cloNIDine 0.1 MG TABLET PO SCH ×4 (09:23→21:50)
[2018-09-03] MEDS: PANTOPRAZOLE 40 MG TABLET PO SCH (09:23)
[2018-09-03] MEDS: CALCIUM ACETATE 667 MG CAPSULE PO SCH ×3 (09:23→17:39)
[2018-09-03] MEDS: FEXOFENADINE 180 MG TABLET PO SCH (09:23)
[2018-09-03] MEDS: FERROUS SULFATE 325 MG TABLET PO SCH (09:24)
[2018-09-03] MEDS: ASPIRIN EC 81 MG TABLET PO SCH (09:24)
[2018-09-03] MEDS: FENOFIBRATE 160 MG TABLET PO SCH (09:25)
[2018-09-03] MEDS: ATORVASTATIN 10 MG TABLET PO SCH (09:25)
[2018-09-03] MEDS: BACITRACIN OINT 0.9 GM PACK TOP SCH (09:25)
[2018-09-03] MEDS: ZINC OXIDE PASTE 113 GM TUBE TOP SCH ×2 (09:26→21:50)
[2018-09-03] MEDS: SKIN HEALING OINT (AQUAPHOR) 50 GM TUBE TOP PRN (15:06)
[2018-09-03] MEDS: DESITIN 4OZ/NYSTATIN 15 GRAM MIXTURE PASTE TOP SCH ×2 (17:38→21:50)
[2018-09-03] MEDS: GABAPENTIN 100 MG CAPSULE PO SCH (21:50)
[2018-09-03] MEDS: INSULIN GLARGINE 100 UNIT/ML SUBCUT SCH (22:17)
[2018-09-04] MEDS: ALBUTEROL/IPRATROPIUM 3 ML NEB RESP TX SCH ×7 (00:05→23:54)
[2018-09-04] MEDS: INSULIN REGULAR 100 UNIT/ML SUBCUT SCH ×4 (02:00→22:08)
[2018-09-04] MEDS: HEPARIN 5,000 UNIT/1 ML VIAL SUBCUT SCH ×2 (03:26→14:30)
[2018-09-04 06:52] LABS: Basophils % 0.5 % (0.0-0.8); Eosinophils # 0.5 10*3/uL (0.0-0.87); Eosinophils % 7.3 % (0.00-10.9); Hematocrit 27.4 VOL% (42.0-52.0); Hemoglobin 8.2 GM/DL (14.0-18.0); Immature Granulocytes % 1.6 %; Lymphocytes # 0.8 10*3/uL (1.4-4.0); Lymphocytes % 12.5 % (21.2-54.2); Mean Corpuscular HGB Conc 29.9 GM/DL (32-36); Mean Corpuscular Hemoglobin 27 PG (27-34); Mean Corpuscular Volume 89.8 FL (87-102); Mean Platelet Volume 9.7 FL (9.6-12.0); Monocytes # 0.4 10*3/uL (0.11-0.8); Monocytes % 6.8 % (1.7-12.7); Neutrophils # 4.5 10*3/uL (1.4-7.4); Neutrophils % 71.3 % (38.7-73.9); Platelet Count 276 T/CUMM (130-400); Red Blood Count 3.05 MC/CUMM (3.8-5.5); Red Cell Distribution Width 16.1 % (9.3-17.3); White Blood Count 6.3 T/CUMM (4-12)
[2018-09-04] MEDS ORDERED: GLUCAGON 1 MG VIAL IM PRN (06:54)
[2018-09-04] MEDS ORDERED: DEXTROSE 50% 25 GM/50 ML VIAL IV PRN (06:54)
[2018-09-04 07:15] LABS: Albumin 2.6 G/DL (3.4-5.0); Bilirubin,Total 0.5 MG/DL (0.2-1.0); Osmolality,Calculated 288.4 MOS/KG (273-304); Potassium 5.3 MMOL/L (3.5-5.1); Total Protein 7.1 G/DL (6.4-8.3)
[2018-09-04] MEDS: LEVOTHYROXINE 100 MCG TABLET PO SCH (07:18)
[2018-09-04] MEDS: LEVOTHYROXINE 125 MCG TABLET PO SCH (07:33)
[2018-09-04] MEDS: cloNIDine 0.1 MG TABLET PO SCH ×2 (08:26→12:00)
[2018-09-04] MEDS: SKIN HEALING OINT (AQUAPHOR) 50 GM TUBE TOP PRN (08:32)
[2018-09-04] MEDS: DESITIN 4OZ/NYSTATIN 15 GRAM MIXTURE PASTE TOP SCH ×2 (08:32→21:56)
[2018-09-04] MEDS: BACITRACIN OINT 0.9 GM PACK TOP SCH (08:45)
[2018-09-04] MEDS: FEXOFENADINE 180 MG TABLET PO SCH (09:00)
[2018-09-04] MEDS ORDERED: DEXTROSE 50% 25 GM/50 ML VIAL IV ONE (09:10)
[2018-09-04] MEDS ORDERED: LIDOCAINE 1%/EPI INJ 20 ML VIAL ONE (09:46)
[2018-09-04] MEDS ORDERED: HEPARIN 5,000 UNIT/1 ML VIAL ONE (09:46)
[2018-09-04] MEDS ORDERED: BUPIVACAINE 0.5% 50 ML VIAL ONE (09:46)
[2018-09-04] MEDS: CALCIUM ACETATE 667 MG CAPSULE PO SCH ×3 (09:58→16:59)
[2018-09-04] MEDS ORDERED: PROPOFOL 200 MG/20 ML VIAL IV ONE (11:39)
[2018-09-04] MEDS ORDERED: KETAMINE 500 MG/10 ML VIAL ONE (11:40)
[2018-09-04] MEDS ORDERED: MIDAZOLAM 2 MG/2 ML VIAL ONE (11:40)
[2018-09-04] MEDS ORDERED: HEPARIN 10,000 UNIT/10 ML VIAL IV PRN (15:36)
[2018-09-04] MEDS ORDERED: LABETALOL 20 MG/4 ML SYRINGE IV ONE (16:21)
[2018-09-04] MEDS: MULTIVITAMIN (CENTRUM) TABLET PO SCH (16:59)
[2018-09-04] MEDS: ASPIRIN EC 81 MG TABLET PO SCH (16:59)
[2018-09-04] MEDS: FENOFIBRATE 160 MG TABLET PO SCH (16:59)
[2018-09-04] MEDS: PANTOPRAZOLE 40 MG TABLET PO SCH (17:00)
[2018-09-04] MEDS: ATORVASTATIN 10 MG TABLET PO SCH (17:00)
[2018-09-04] MEDS: ESCITALOPRAM 10 MG TABLET PO SCH (17:00)
[2018-09-04] MEDS ORDERED: GENTAMICIN INJ 100 MG in PREMIX 1 EACH IV ONE (17:00)
[2018-09-04] MEDS: FERROUS SULFATE 325 MG TABLET PO SCH (17:00)
[2018-09-04] MEDS: ZINC OXIDE PASTE 113 GM TUBE TOP SCH ×2 (17:01→21:56)
[2018-09-04] MEDS: INSULIN GLARGINE 100 UNIT/ML SUBCUT SCH (21:55)
[2018-09-04] MEDS: GABAPENTIN 100 MG CAPSULE PO SCH (21:56)
[2018-09-05] MEDS: INSULIN REGULAR 100 UNIT/ML SUBCUT SCH ×3 (00:10→12:28)
[2018-09-05] MEDS: ALBUTEROL/IPRATROPIUM 3 ML NEB RESP TX SCH ×3 (03:48→11:26)
[2018-09-05] MEDS: HEPARIN 5,000 UNIT/1 ML VIAL SUBCUT SCH (03:48)
[2018-09-05 05:23] LABS: Basophils % 0.3 % (0.0-0.8); Eosinophils # 0.4 10*3/uL (0.0-0.87); Eosinophils % 6.5 % (0.00-10.9); Hematocrit 27.5 VOL% (42.0-52.0); Hemoglobin 8.3 GM/DL (14.0-18.0); Immature Granulocytes % 1.3 %; Immature Granulocytes Absolute 0.09 #; Lymphocytes # 1.1 10*3/uL (1.4-4.0); Lymphocytes % 15.9 % (21.2-54.2); Mean Corpuscular HGB Conc 30.2 GM/DL (32-36); Mean Corpuscular Hemoglobin 27 PG (27-34); Mean Corpuscular Volume 89.3 FL (87-102); Mean Platelet Volume 9.3 FL (9.6-12.0); Monocytes # 0.5 10*3/uL (0.11-0.8); Monocytes % 6.6 % (1.7-12.7); Neutrophils # 4.7 10*3/uL (1.4-7.4); Neutrophils % 69.4 % (38.7-73.9); Platelet Count 272 T/CUMM (130-400); Red Blood Count 3.08 MC/CUMM (3.8-5.5); Red Cell Distribution Width 16.1 % (9.3-17.3); White Blood Count 6.8 T/CUMM (4-12)
[2018-09-05 05:42] LABS: Albumin 2.7 G/DL (3.4-5.0); Bilirubin,Total 0.5 MG/DL (0.2-1.0); Calcium 7.6 MG/DL (8.5-10.1); Osmolality,Calculated 281.4 MOS/KG (273-304); Potassium 4.4 MMOL/L (3.5-5.1); Total Protein 7.2 G/DL (6.4-8.3)
[2018-09-05] MEDS: LEVOTHYROXINE 125 MCG TABLET PO SCH (06:41)
[2018-09-05] MEDS: DESITIN 4OZ/NYSTATIN 15 GRAM MIXTURE PASTE TOP SCH (09:21)
[2018-09-05] MEDS: ZINC OXIDE PASTE 113 GM TUBE TOP SCH (09:21)
[2018-09-05] MEDS: CALCIUM ACETATE 667 MG CAPSULE PO SCH ×2 (09:37→12:47)
[2018-09-05] MEDS: FEXOFENADINE 180 MG TABLET PO SCH (09:37)
[2018-09-05] MEDS: ASPIRIN EC 81 MG TABLET PO SCH (09:37)
[2018-09-05] MEDS: FERROUS SULFATE 325 MG TABLET PO SCH (09:37)
[2018-09-05] MEDS: ATORVASTATIN 10 MG TABLET PO SCH (09:37)
[2018-09-05] MEDS: ESCITALOPRAM 10 MG TABLET PO SCH (09:37)
[2018-09-05] MEDS: BACITRACIN OINT 0.9 GM PACK TOP SCH (09:37)
[2018-09-05] MEDS: PANTOPRAZOLE 40 MG TABLET PO SCH (09:38)
[2018-09-05] MEDS: MULTIVITAMIN (CENTRUM) TABLET PO SCH (09:38)
[2018-09-05] MEDS: FENOFIBRATE 160 MG TABLET PO SCH (09:38)
[2018-09-05 12:18] VITALS: BP 95/56
== END 2018-09-05 14:15 | DRG 314 ==
LOC: EDUNIT# → N.ED 18:53 → SUATTDRO 22:24 → N.EDINP 22:24 → N.5E 23:36
PROVIDERS: ADMIT Internal Medicine; ATTEND Hospitalist